=== PATIENT | male | born 1955 | race American Indian/Alaskan Native ===

== ENCOUNTER 2017-10-28 21:08 | Inpatient (IN) | payer MEDICARE ==
[2017-10-28] MEDS ORDERED: SUBLIMAZE IV ONE ×2 (21:12→21:35)
[2017-10-28] MEDS ORDERED: NACL 0.9% 500 ML 500 ML IV ONE (21:12)
[2017-10-28] MEDS ORDERED: SUBLIMAZE ONE (21:14)
--- NOTE | 2017-10-28 21:19 | Emergency Department Report ---
ED General Adult HPI - General Chief complaint: Abdominal Pain Stated complaint: ABDOMINAL PAIN Time Seen by Provider: 10/28/17 21:11 Source: patient, EMS (verbal report received from EMS.ems notes not available at time of chart dictation) Mode of arrival: Stretcher Limitations: Physical Limitation - History of Present Illness Initial comments: This is a 62-year-old gentleman who is not known to this provider previously who denies chronic medical conditions and specifically indicates no issues with renal insufficiency who presents to the ER with EMS as a possible aortic dissection. The patient apparently had laparotomy at some point in the past for ulcers. EMS brings the patient in for sharp anterior abdominal pain which radiates to the back, hypertension and the field and diaphoresis. Patient indicates no cocaine use, no trauma, and indicates he hasnt had pain like this before. On arrival to the ER, the patient was quite hypertensive with a blood pressure in the high 190s, was diaphoretic and looks very uncomfortable. He indicated no exacerbating or factors. Given this constellation of symptoms and clinical history, I am very concerned about impending aortic catastrophe. I strongly recommended an emergent CT angiogram of the chest abdomen pelvis to assess the patient's anatomy. Patient was informed about the potential risk of renal insufficiency secondary to contrast dye administration, but given his hypertension, diaphoresis and clinical history, it is my opinion that the patient requires emergent imaging to rule out a potentially life threatening diagnoses. In addition, this hospital does not have CT surgery available for consultation and surgical intervention, so it is in the patient's best interest to exclude a potentially lethal condition as expediently as possible and if an aortic catastrophe is indeed identified, he'll require transfer for definitive management. -: Sudden Location: abdomen Radiation: back Quality: other (tearing) Consistency: constant Improves with: none Worsens with: none Associated Symptoms: diaphoresis, malaise, weakness - Related Data Allergies Allergy/AdvReac Type Severity Reaction Status Date / Time No Known Drug Allergies Allergy Unknown Verified 10/28/17 22:36 ED Review of Systems ROS: Stated complaint: ABDOMINAL PAIN Other details as noted in HPI Comment: Unobtainable due to pts medical conditions ED Physical Exam - General General appearance: alert, in distress, other (patient is diaphoretic) - Head Head exam: Present: atraumatic, normocephalic - Eye Eye exam: Present: normal appearance, EOMI - ENT ENT exam: Present: normal exam, normal orophraynx, mucous membranes moist, normal external ear exam - Neck Neck exam: Present: normal inspection, full ROM - Respiratory Respiratory exam: Present: normal lung sounds bilaterally. Absent: respiratory distress - Cardiovascular Cardiovascular Exam: Present: regular rate, normal rhythm, normal heart sounds. Absent: bradycardia, tachycardia, irregular rhythm, systolic murmur, diastolic murmur, rubs, gallop - GI/Abdominal GI/Abdominal exam: Present: soft, tenderness. Absent: distended, guarding, rebound, rigid - Rectal Rectal exam: Present: deferred - Extremities Exam Extremities exam: Present: normal inspection, full ROM, other (2+ pulses noted in the bilateral upper, lower extremities. Compartments soft. No long bony tenderness. The pelvis is stable.). Absent: calf tenderness - Back Exam Back exam: Present: normal inspection, full ROM. Absent: tenderness, CVA tenderness (R), paraspinal tenderness, vertebral tenderness - Neurological Exam Neurological exam: Present: alert, oriented X3, CN II-XII intact, other ( Extraocular movements intact. Tongue midline. No facial droop. Facial sensation intact to light touch in the V1, V2, V3 distribution bilaterally. 5 and 5 strength in 4 extremities.. Sensation is intact to light touch in 4 extremities.). Absent: motor sensory deficit - Psychiatric Psychiatric exam: Present: anxious - Skin Skin exam: Present: warm, dry, intact, normal color. Absent: rash ED Course Vital Signs 10/28/17 10/28/17 10/28/17 21:11 21:45 22:21 Temperature Pulse Rate 93 H 79 96 H Respiratory Rate Blood Pressure 184/106 Blood Pressure 182/101 170/107 [Left] O2 Sat by Pulse 98 Oximetry 10/28/17 10/28/17 22:48 23:03 Temperature 98 F Pulse Rate 109 H 97 H Respiratory 16 Rate Blood Pressure Blood Pressure 150/85 168/93 [Left] O2 Sat by Pulse Oximetry - Reevaluation(s) Reevaluation #1: 10/28/17 22:33 The patient is reassessed. His blood pressure is improved. He is still having a fair amount of pain. His CT scan is negative for dissection or an imminent aortic catastrophe. I have reexamined the patient's abdomen and he is quite tender in the right upper quadrant. My bedside ultrasound demonstrates stones in the gallbladder. Stones in the gallbladder are also noted on the radiology report by the interpreting radiologist. In addition, the patient is found to have a possible stenosis at the ileocecal junction with air-fluid levels. Hydromorphone is added on for pain. Formal radiology right upper quadrant ultrasound has been requested. Given tachycardia, leukocytosis, abdominal pain , patient will be treated empirically for sepsis secondary to abdominal etiology. Gen. surgery on-call was paged, and I'm waiting call back. 10/28/17 22:53 Reevaluation #2: 10/28/17 22:38 hypertension and diaphoresis may be secondary to abdominal pain, either from small bowel obstruction versus ileus versus cholecystitis, patient does not require emergent decrease of blood pressure at this time and we will discontinue cardene drip. Reevaluation #3: 10/28/17 22:53 Case is discussed with general surgeon on-call, Dr. Nowak She agrees with plan to obtain right upper quadrant ultrasound. This patient is not having nausea or vomiting and has not describes constipation, she recommends no indication for emergent repeat CT scan with oral contrast. Indicates that small bowel series/follow-through may be obtained tomorrow. She indicates her group will follow the patient in consultation. Hospital team is paged to arrange admission. Reevaluation #4: 10/28/17 22:57 The hospitalist, Dr. Ortega, accepted the patient to the medical service. Reevaluation #5: 10/28/17 23:41 Ultrasound suggests stones without definitive evidence of cholecystitis. ED Medical Decision Making - Lab Data Result diagrams: 10/28/17 21:25 10/28/17 21:25 Vital Signs 10/28/17 21:11 Pulse Rate 93 H Blood Pressure 184/106 O2 Sat by Pulse 98 Oximetry Lab Results 10/28/17 10/28/17 10/28/17 Range/Units 21:25 21:25 21:25 WBC 19.5 H (4.5-11.0) K/mm3 RBC 4.61 (3.65-5.03) M/mm3 Hgb 14.3 (11.8-15.2) gm/dl Hct 44.4 (35.5-45.6) % MCV 96 H (84-94) fl MCH 31 (28-32) pg MCHC 32 (32-34) % RDW 15.2 (13.2-15.2) % Plt Count 324 (140-440) K/mm3 Lymph % (Auto) 17.2 (13.4-35.0) % [place] % (Auto) 8.2 H (0.0-7.3) % Eos % (Auto) 0.7 (0.0-4.3) % Baso % (Auto) 2.0 H (0.0-1.8) % Lymph # 3.4 (1.2-5.4) K/mm3 [place] # 1.6 H (0.0-0.8) K/mm3 Eos # 0.1 (0.0-0.4) K/mm3 Baso # 0.4 H (0.0-0.1) K/mm3 Seg Neutrophils % 71.9 H (40.0-70.0) % Seg Neutrophils # 14.0 H (1.8-7.7) K/mm3 PT 11.3 L (12.2-14.9) Sec. INR 0.78 L (0.87-1.13) Sodium 139 (137-145) mmol/L Potassium 3.9 (3.6-5.0) mmol/L Chloride 100.9 (98-107) mmol/L Carbon Dioxide 27 (22-30) mmol/L Anion Gap 15 mmol/L BUN 17 (9-20) mg/dL Creatinine 1.0 (0.8-1.5) mg/dL Estimated GFR > 60 ml/min BUN/Creatinine Ratio 17 % Glucose 111 H (75-100) mg/dL Lactic Acid (0.7-2.0) mmol/L Calcium 9.8 (8.4-10.2) mg/dL Magnesium 2.30 (1.7-2.3) mg/dL Total Bilirubin 0.20 (0.1-1.2) mg/dL AST 20 (5-40) units/L ALT 22 (7-56) units/L Alkaline Phosphatase 101 (35-129) units/L Troponin T < 0.010 (0.00-0.029) ng/mL Total Protein 7.9 (6.3-8.2) g/dL Albumin 4.2 (3.9-5) g/dL Albumin/Globulin Ratio 1.1 % 09/22/18 Range/Units 21:25 WBC (4.5-11.0) K/mm3 RBC (3.65-5.03) M/mm3 Hgb (11.8-15.2) gm/dl Hct (35.5-45.6) % MCV (84-94) fl MCH (28-32) pg MCHC (32-34) % RDW (13.2-15.2) % Plt Count (140-440) K/mm3 Lymph % (Auto) (13.4-35.0) % [place] % (Auto) (0.0-7.3) % Eos % (Auto) (0.0-4.3) % Baso % (Auto) (0.0-1.8) % Lymph # (1.2-5.4) K/mm3 [place] # (0.0-0.8) K/mm3 Eos # (0.0-0.4) K/mm3 Baso # (0.0-0.1) K/mm3 Seg Neutrophils % (40.0-70.0) % Seg Neutrophils # (1.8-7.7) K/mm3 PT (12.2-14.9) Sec. INR (0.87-1.13) Sodium (137-145) mmol/L Potassium (3.6-5.0) mmol/L Chloride (98-107) mmol/L Carbon Dioxide (22-30) mmol/L Anion Gap mmol/L BUN (9-20) mg/dL Creatinine (0.8-1.5) mg/dL Estimated GFR ml/min BUN/Creatinine Ratio % Glucose (75-100) mg/dL Lactic Acid 1.60 (0.7-2.0) mmol/L Calcium (8.4-10.2) mg/dL Magnesium (1.7-2.3) mg/dL Total Bilirubin (0.1-1.2) mg/dL AST (5-40) units/L ALT (7-56) units/L Alkaline Phosphatase (35-129) units/L Troponin T (0.00-0.029) ng/mL Total Protein (6.3-8.2) g/dL Albumin (3.9-5) g/dL Albumin/Globulin Ratio % - EKG Data EKG shows normal: sinus rhythm Rate: normal - EKG Data When compared to previous EKG there are: previous EKG unavailable 10/28/17 21:23 Sinus, 89 bpm, borderline rightward axis deviation, poor R-wave progression, abnormal EKG. There is no prior for comparison. This EKG is not a STEMI - Radiology Data Radiology results: report reviewed, image reviewed X-ray of the chest was negative for acute disease CT scan of the chest shows no evidence of aortic dissection. CT scan of the abdomen and pelvis shows no evidence of abdominal dissection. Stones noted in the gallbladder, and the gallbladder is distended. In addition, there may be a segment of stenosis at the ileocecal junction and air-fluid levels noted as well. - Medical Decision Making Differential diagnosis, including not limited to: Aortic dissection, AAA, acute coronary syndrome, hypertensive emergency Critical Care Time: Yes Critical care time in (mins) excluding proc time.: 60 Critical care attestation.: If time is entered above; I have spent that time in minutes in the direct care of this critically ill patient, excluding procedure time. ED Disposition Clinical Impression: SIRS (systemic inflammatory response syndrome), Abdominal pain Disposition: OP ADMIT IP TO THIS HOSP Is pt being admited?: Yes Condition: Critical Referrals: PRIMARY CARE, [Primary Care Provider] - 3-5 Days
[2017-10-28 21:32] LABS: Basophils # (Auto) 0.4 K/mm3 (0.0-0.1); Eosinophils # (Auto) 0.1 K/mm3 (0.0-0.4); Eosinophils % (Auto) 0.7 % (0.0-4.3); Hematocrit 44.4 % (35.5-45.6); Hemoglobin 14.3 gm/dl (11.8-15.2); Lymphocytes # (Auto) 3.4 K/mm3 (1.2-5.4); Lymphocytes % (Auto) 17.2 % (13.4-35.0); Mean Corpuscular HGB Conc 32 % (32-34); Mean Corpuscular Hemoglobin 31 pg (28-32); Mean Corpuscular Volume 96 fl (84-94); Monocytes # (Auto) 1.6 K/mm3 (0.0-0.8); Monocytes % (Auto) 8.2 % (0.0-7.3); Platelet Count 324 K/mm3 (140-440); Red Blood Count 4.61 M/mm3 (3.65-5.03); Red Cell Distribution Width 15.2 % (13.2-15.2)
[2017-10-28 21:41] LABS: INR 0.78 (0.87-1.13)
--- NOTE | 2017-10-28 21:50 | XRay Report ---
FINAL REPORT EXAM: XR CHEST 1V AP HISTORY: htn diaphoresis TECHNIQUE: Frontal portable view of the chest Comparison: None FINDINGS: There is no evidence of focal infiltrate, pneumothorax or pleural fluid collection. The entirety of the costophrenic angles are not included in the field of view. The cardiac silhouette is normal size. There is atherosclerotic vascular calcification of the thoracic aorta. The bony structures are unremarkable. IMPRESSION: 1. No evidence of an acute pulmonary process.
[2017-10-28 21:52] LABS: Alanine Aminotransferase 22 units/L (7-56); Albumin 4.2 g/dL (3.9-5); BUN/Creatinine Ratio 17; Blood Urea Nitrogen 17 mg/dL (9-20); Calcium 9.8 mg/dL (8.4-10.2); Hemolysis Index 8
[2017-10-28] MEDS ORDERED: CARDENE 50 MG in NACL 0.9% 250ML 230 ML IV SCH (22:00)
[2017-10-28] MEDS ORDERED: DILAUDID IV ONE (22:25)
--- NOTE | 2017-10-28 22:26 | Cat Scan Report ---
FINAL REPORT EXAM: CT ANGIO ABDOMEN PELVIS HISTORY: dissection protocol TECHNIQUE: CT angiogram of the abdomen and pelvis following IV administration of 100 cc of Omnipaque 350 axial helical imaging was performed through the abdomen and pelvis with maximum intensity projection images obtained. Comparison: CT angiogram chest also performed today FINDINGS: The lung bases are without infiltrate, pneumothorax or pleural fluid collection. There appears to be fatty infiltration of the liver. The spleen is diminutive in size. The pancreas an adrenal glands are unremarkable. The gallbladder is moderately distended and contains numerous gallstones. There are hypodensities in the kidneys bilaterally. Some fit CT criteria for cysts. Others are too small to characterize. There is no evidence of hydronephrosis or urinary tract calculi. There is mild distention of segments of small bowel in the abdomen and pelvis with air-fluid levels. There is no evidence of pneumoperitoneum or free fluid. There is colonic diverticulosis without radiographic evidence of diverticulitis. The appendix is normal in appearance. There is a "stool-like" appearance of the contents of the distal ileum. This is of unclear etiology but raises the possibility of a segment of stenosis in the region of the ileocecal junction. There is a [id number] amount of stool in the ascending and transverse colon. The abdominal aorta is normal caliber. There is atherosclerotic vascular calcification and plaque formation in the large and medium caliber arteries. There is normal enhancement of the branches of the abdominal aorta without evidence of significant stenosis or occlusion. There is the appearance of irregular stenosis of the internal iliac arteries bilaterally secondary to atherosclerotic plaque formation. There is the appearance of irregular stenosis of the common femoral arteries bilaterally. The bony structures are notable for spondylitic change of the lumbar spine with a large left foraminal disc protrusion at the L4-L5 level and grade 1 anterolisthesis of L4 on L5. There appears to be marked canal stenosis at this level. There is the appearance of a large right central/paracentral disc protrusion/herniation at L5-S1. IMPRESSION: 1. Atherosclerotic vascular calcification and plaque formation in the large and medium caliber arteries without evidence of occlusion and without evidence of significant stenosis of the major branches of the abdominal aorta. 2. Irregular stenoses of the internal iliac arteries bilaterally and common femoral arteries bilaterally. 3. "Stool-like" appearance of the contents of the distal ileum with mild distention with air-fluid levels in more proximal segments of the small bowel. This may be indicative of a stenosis at the ileocecal junction. CT abdomen and pelvis with GI contrast opacification of the small bowel and colon may be helpful for further evaluation. 4. Evidence of fatty infiltration/steatosis of the liver. 5. Gallstones within the moderately distended gallbladder. 6. Renal cysts. 7. Colonic diverticulosis. 8. Spondylitic change lumbar spine with grade 1 anterolisthesis L4 on L5 and the appearance of, a large left foraminal disc protrusion L4-L5 and large right central/paracentral disc protrusion L5-S1.
[2017-10-28] MEDS ORDERED: NACL 0.9% 1000 ML IV ONE (22:28)
--- NOTE | 2017-10-28 22:31 | Cat Scan Report ---
FINAL REPORT EXAM: CT ANGIO CHEST HISTORY: dissection protocol TECHNIQUE: Following IV administration of 100 cc of Omnipaque 350 axial helical imaging was performed through the chest with maximum intensity projection images obtained. Comparison: CT angiogram abdomen and pelvis also performed today FINDINGS: There is no evidence of infiltrate, pneumothorax or pleural fluid collection. The trachea and bronchi are patent. The heart appears to be normal size. The thoracic aorta is normal caliber with atherosclerotic vascular calcification. There is no evidence of dissection. There is no evidence of intrathoracic adenopathy. The bony structures are notable for a compression fracture of the L1 vertebral body of indeterminate age. Loss of height is less than 50 percent. The visualized portion the upper abdomen is notable for evidence of gallstones in the moderately distended gallbladder and postsurgical change in the lesser sac. IMPRESSION: 1. Atherosclerotic vascular calcification of the thoracic aorta without evidence of aneurysm or dissection. 2. No evidence of an acute intrathoracic process. 3. Compression fracture L1 vertebral body of indeterminate age. Loss of height is less than 50 percent. 4. Gallstones in the moderately distended gallbladder.
[2017-10-28] MEDS ORDERED: ZOSYN/NS 4.5GM/100ML 4.5 GM/100 ML VIAL IV ONE (23:00)
--- NOTE | 2017-10-28 23:39 | Ultrasound Report ---
FINAL REPORT EXAM: US ABDOMEN LIMITED HISTORY: cholecystitis ruq abd pain TECHNIQUE: Grayscale and color-flow imaging of the right upper quadrant was performed. Comparison: CT angiogram abdomen and pelvis also performed today FINDINGS: Pancreas: The posterior body and tail of the pancreas are not well visualized due to artifact. The visualized portion the pancreas is unremarkable. Upper abdominal aorta: Normal caliber (2 centimeters). Right kidney: Measures 11.2 centimeters in the maximal craniocaudal dimension and is unremarkable in appearance. Liver: Demonstrates homogeneous echogenicity. There is no demonstration of a focal mass. There is increased echogenicity of the liver suggestive of fatty infiltration/steatosis. Gallbladder: Moderately distended and contains numerous shadowing gallstones. The gallbladder wall is normal thickness (2.5 millimeters). There is no demonstration of pericholecystic fluid. Common bile duct: Normal caliber for the patient's age (6.6 millimeters). No free fluid is demonstrated in the right upper quadrant. IMPRESSION: 1. Gallstones within the gallbladder. No definite ultrasound evidence of acute cholecystitis. 2. Posterior body and tail of the pancreas not well visualized due to artifact. 3. Evidence of fatty infiltration/steatosis of the liver.
--- NOTE | 2017-10-29 00:13 | History and Physical Report ---
History of Present Illness Date of examination: 10/28/17 Date of admission: 10/28/17 Chief complaint: Generalized abdominal pain History of present illness: Patient is a 62-year-old -[place] male with history of peptic ulcer disease who presented to the ED on account of a few hours history of generalized abdominal pain. He described it as sudden in onset, sharp in character, rated 10 over 10, nonradiating and constant in duration. No known aggravating or relieving factors. He has associated chills without fever. He denies nausea, vomiting, constipation, diarrhea, dysuria or frequency. No chest pain, cough, palpitation, leg swelling, headaches, dizziness, syncope or loss of consciousness. Past History Past Medical History: arthritis, other (peptic ulcer disease) Past Surgical History: Other (stomach surgery for peptic ulcer disease) Social history: smoking (patient has 20 year history of cigarette smoking. He currently smokes few sticks of cigarettes per day. He admits to occasional alcohol use but denies illicit drug use), other Family history: other (both parents had heart disease and his mother had brain aneurysm in her 70's) Medications and Allergies Allergies Allergy/AdvReac Type Severity Reaction Status Date / Time No Known Drug Allergies Allergy Unknown Verified 10/28/17 22:36 Home Medications Medication Instructions Recorded Confirmed Last Taken Type Celecoxib 10/29/17 Unknown History predniSONE [Deltasone] 10/29/17 Unknown History Active Meds: Active Medications Enoxaparin Sodium (Lovenox) 40 mg SUB-Q QDAY LEANDRO Piperacillin Sod/Tazobactam Sod (Zosyn/Ns 4.5gm/100ml) 4.5 gm in 100 mls @ 200 mls/hr IV Q8HR LEANDRO; Protocol Review of Systems All systems: negative (except as documented in the HPI, all other systems were reviewed and negative) Exam - Constitutional Vitals: Temp Pulse Resp BP Pulse Ox 98 F 97 H 16 168/93 98 10/28/17 22:48 10/28/17 23:03 10/28/17 22:48 10/28/17 23:03 10/28/17 21:11 General appearance: Present: no acute distress, well-nourished - EENT Eyes: Present: PERRL, EOM intact ENT: hearing intact, clear oral mucosa - Neck Neck: Present: supple, normal ROM - Respiratory Respiratory effort: normal Respiratory: bilateral: CTA - Cardiovascular Rhythm: other (tachycardia with regular rhythm) Heart Sounds: Present: S1 & S2. Absent: rub, click - Extremities Extremities: pulses symmetrical, No edema Peripheral Pulses: within normal limits - Abdominal General gastrointestinal: Present: soft, tender (generalized with positive Dunlap's sign), non-distended, normal bowel sounds - Integumentary Integumentary: Present: clear, warm, dry - Musculoskeletal Musculoskeletal: gait normal, strength equal bilaterally - Psychiatric Psychiatric: appropriate mood/affect, intact judgment & insight - Neurologic Neurologic: CNII-XII intact, moves all extremities Results - Labs CBC & Chem 7: 10/28/17 21:25 10/28/17 21:25 Labs: Laboratory Last Values WBC 19.5 K/mm3 (4.5-11.0) H 10/28/17 21: RBC 4.61 M/mm3 (3.65-5.03) 10/28/17 21: Hgb 14.3 gm/dl (11.8-15.2) 10/28/17 21: Hct 44.4 % (35.5-45.6) 10/28/17 21:25 MCV 96 fl (84-94) H 10/28/17 21:25 MCH 31 pg (28-32) 10/28/17 21: MCHC 32 % (32-34) 10/28/17 21:25 RDW 15.2 % (13.2-15.2) 10/28/17 21: Plt Count 324 K/mm3 (140-440) 10/28/17 21:25 Lymph % (Auto) 17.2 % (13.4-35.0) 10/28/17 21:25 [place] % (Auto) 8.2 % (0.0-7.3) H 10/28/17 21:25 Eos % (Auto) 0.7 % (0.0-4.3) 10/28/17 21: Baso % (Auto) 2.0 % (0.0-1.8) H 10/28/17 21:25 Lymph # 3.4 K/mm3 (1.2-5.4) 10/28/17 21: [place] # 1.6 K/mm3 (0.0-0.8) H 10/28/17 21:25 Eos # 0.1 K/mm3 (0.0-0.4) 10/28/17 21:25 Baso # 0.4 K/mm3 (0.0-0.1) H 10/28/17 21:25 Seg Neutrophils % 71.9 % (40.0-70.0) H 10/28/17 21:25 Seg Neutrophils # 14.0 K/mm3 (1.8-7.7) H 10/28/17 21:25 PT 11.3 Sec. (12.2-14.9) L 10/28/17 21:25 INR 0.78 (0.87-1.13) L 10/28/17 21:25 Sodium 139 mmol/L (137-145) 10/28/17 21:25 Potassium 3.9 mmol/L (3.6-5.0) 10/28/17 21:25 Chloride 100.9 mmol/L (98-107) 10/28/17 21:25 Carbon Dioxide 27 mmol/L (22-30) 10/28/17 21:25 Anion Gap 15 mmol/L 10/28/17 21:25 BUN 17 mg/dL (9-20) 10/28/17 21:25 Creatinine 1.0 mg/dL (0.8-1.5) 10/28/17 21:25 Estimated GFR > 60 ml/min 10/28/17 21:25 BUN/Creatinine Ratio 17 % 10/28/17 21:25 Glucose 111 mg/dL (75-100) H 10/28/17 21:25 Lactic Acid 1.60 mmol/L (0.7-2.0) 10/28/17 21:25 Calcium 9.8 mg/dL (8.4-10.2) 10/28/17 21:25 Magnesium 2.30 mg/dL (1.7-2.3) 10/28/17 21:25 Total Bilirubin 0.20 mg/dL (0.1-1.2) 10/28/17 21:25 AST 20 units/L (5-40) 10/28/17 21:25 ALT 22 units/L (7-56) 10/28/17 21:25 Alkaline Phosphatase 101 units/L (35-129) 10/28/17 21:25 Troponin T < 0.010 ng/mL (0.00-0.029) 10/28/17 21:25 Total Protein 7.9 g/dL (6.3-8.2) 10/28/17 21:25 Albumin 4.2 g/dL (3.9-5) 10/28/17 21:25 Albumin/Globulin Ratio 1.1 % 10/28/17 21:25 Blood Type O POSITIVE 10/28/17 21:25 Antibody Screen Negative 10/28/17 21:25 Assessment and Plan Assessment and plan: Sepsis likely secondary to acute cholecystitis -Sepsis protocol -On IV antibiotic with Zosyn and when necessary narcotics for pain control -General surgeon was consulted in the ED 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 Elevated blood pressure without prior history of hypertension -Probably secondary to severe pain -Patient will be placed on when necessary hydralazine History of peptic ulcer disease -On IV Protonix Prophylaxis -DVT prophylaxis with SCD due to high risk for bleed Time spent: 38 minutes Disposition: Discharge will depend on clinical course
[2017-10-29] MEDS ORDERED: TYLENOL PO PRN (00:33)
[2017-10-29] MEDS ORDERED: PERCOCET 5/325 PO PRN (00:33)
[2017-10-29] MEDS ORDERED: SODIUM CHLORIDE FLUSH SYRINGE 10 ML IV PRN (00:33)
[2017-10-29] MEDS ORDERED: ZOFRAN IV PRN (00:33)
[2017-10-29] MEDS ORDERED: APRESOLINE IV PRN (00:39)
[2017-10-29 00:47] LABS: Bilirubin,Urine NEG (Negative); Blood,Urine NEG (Negative); Color,Urine Colorless (Yellow); Protein,Urine <15 mg/dL mg/dL (Negative); Urobilinogen,Urine < 2.0 mg/dL (<2.0)
[2017-10-29] MEDS: PROTONIX IV SCH ×3 (02:52→21:05)
[2017-10-29] MEDS ORDERED: PROTONIX IV ONE (02:54)
[2017-10-29] MEDS: DILAUDID IV PRN ×5 (03:15→23:11)
[2017-10-29] MEDS: NACL 0.9% 1000 ML 1,000 ML IV SCH ×2 (06:51→21:04)
[2017-10-29] MEDS: ZOSYN/NS 4.5GM/100ML 4.5 GM/100 ML VIAL IV SCH ×3 (06:52→21:04)
[2017-10-29] MEDS ORDERED: LOVENOX SUB-Q SCH (10:00)
[2017-10-29] MEDS: SODIUM CHLORIDE FLUSH SYRINGE 10 ML IV SCH ×2 (10:16→21:05)
--- NOTE | 2017-10-29 10:30 | Progress Note ---
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 Elevated blood pressure without prior history of hypertension -Probably secondary to severe pain -Cont. when necessary hydralazine History of peptic ulcer disease -On IV Protonix Prophylaxis -DVT prophylaxis with SCD due to high risk for bleed History Interval history: No new issues overnight. Patient continues to complain of abdominal pain. Hospitalist Physical - Constitutional Vitals: Temp Pulse Resp BP Pulse Ox 98.2 F 85 20 157/97 97 10/29/17 05:24 10/29/17 05:24 10/29/17 05:24 10/29/17 05:24 10/29/17 05:24 General appearance: Present: no acute distress, well-nourished - EENT Eyes: Present: PERRL, EOM intact ENT: hearing intact, clear oral mucosa, dentition normal - Neck Neck: Present: supple, normal ROM - Respiratory Respiratory effort: normal Respiratory: bilateral: CTA - Cardiovascular Rhythm: regular Heart Sounds: Present: S1 & S2. Absent: gallop, rub - Extremities Extremities: no ischemia, No edema, Full ROM - Abdominal General gastrointestinal: soft, tender, non-distended, normal bowel sounds Localized gastrointestinal: tender: diffuse (mild) - Integumentary Integumentary: Present: clear, warm, dry - Neurologic Neurologic: CNII-XII intact, moves all extremities Results - Labs CBC & Chem 7: 10/28/17 21:25 10/28/17 21:25 Labs: Laboratory Last Values WBC 19.5 K/mm3 (4.5-11.0) H 10/28/17 21:25 RBC 4.61 M/mm3 (3.65-5.03) 10/28/17 21:25 Hgb 14.3 gm/dl (11.8-15.2) 10/28/17 21:25 Hct 44.4 % (35.5-45.6) 10/28/17 21:25 MCV 96 fl (84-94) H 10/28/17 21:25 MCH 31 pg (28-32) 10/28/17 21:25 MCHC 32 % (32-34) 10/28/17 21:25 RDW 15.2 % (13.2-15.2) 10/28/17 21:25 Plt Count 324 K/mm3 (140-440) 10/28/17 21:25 Lymph % (Auto) 17.2 % (13.4-35.0) 10/28/17 21: [place] % (Auto) 8.2 % (0.0-7.3) H 10/28/17 21:25 Eos % (Auto) 0.7 % (0.0-4.3) 10/28/17 21: Baso % (Auto) 2.0 % (0.0-1.8) H 10/28/17: Lymph # 3.4 K/mm3 (1.2-5.4) 10/28/17: [place] # 1.6 K/mm3 (0.0-0.8) H 10/28/17: Eos # 0.1 K/mm3 (0.0-0.4) 10/28/17: Baso # 0.4 K/mm3 (0.0-0.1) H 10/28/17 21:25 Seg Neutrophils % 71.9 % (40.0-70.0) H 10/28/17: Seg Neutrophils # 14.0 K/mm3 (1.8-7.7) H 10/28/17 21:25 PT 11.3 Sec. (12.2-14.9) L 10/28/17 21:25 INR 0.78 (0.87-1.13) L 10/28/17 21:25 Sodium 139 mmol/L (137-145) 10/28/17 21:25 Potassium 3.9 mmol/L (3.6-5.0) 10/28/17: Chloride 100.9 mmol/L (98-107) 10/28/17 21:25 Carbon Dioxide 27 mmol/L (22-30) 10/28/17 21:25 Anion Gap 15 mmol/L 10/28/17 21:25 BUN 17 mg/dL (9-20) 10/28/17 21:25 Creatinine 1.0 mg/dL (0.8-1.5) 10/28/17 21:25 Estimated GFR > 60 ml/min 10/28/17 21:25 BUN/Creatinine Ratio 17 % 10/28/17 21:25 Glucose 111 mg/dL (75-100) H 10/28/17 21:25 Lactic Acid 1.60 mmol/L (0.7-2.0) 10/28/17 21:25 Calcium 9.8 mg/dL (8.4-10.2) 10/28/17 21:25 Magnesium 2.30 mg/dL (1.7-2.3) 10/28/17 21:25 Total Bilirubin 0.20 mg/dL (0.1-1.2) 10/28/17 21:25 AST 20 units/L (5-40) 10/28/17 21:25 ALT 22 units/L (7-56) 10/28/17 21:25 Alkaline Phosphatase 101 units/L (35-129) 10/28/17 21:25 Troponin T < 0.010 ng/mL (0.00-0.029) 10/28/17 21:25 Total Protein 7.9 g/dL (6.3-8.2) 10/28/17 21:25 Albumin 4.2 g/dL (3.9-5) 10/28/17 21:25 Albumin/Globulin Ratio 1.1 % 10/28/17 21:25 Urine Color Colorless (Yellow) 10/28/17 00:41 Urine Turbidity Clear (Clear) 10/28/17 00:41 Urine pH 8.0 (5.0-7.0) H 10/28/17 00:41 Ur Specific [place] 1.014 (1.003-1.030) 10/28/17 00:41 Urine Protein <15 mg/dl mg/dL (Negative) 10/28/17 00:41 Urine Glucose (UA) Neg mg/dL (Negative) 10/28/17 00:41 Urine Ketones Neg mg/dL (Negative) 10/28/17 00:41 Urine Blood Neg (Negative) 10/28/17 00:41 Urine Nitrite Neg (Negative) 10/28/17 00:41 Urine Bilirubin Neg (Negative) 10/28/17 00:41 Urine Urobilinogen < 2.0 mg/dL (<2.0) 10/28/17 00:41 Ur Leukocyte Esterase Neg (Negative) 10/28/17 00:41 Urine WBC (Auto) 2.0 /HPF (0.0-6.0) 10/28/17 00:41 Urine RBC (Auto) 1.0 /HPF (0.0-6.0) 10/28/17 00:41 Blood Type O POSITIVE 10/28/17 21:25 Antibody Screen Negative 10/28/17 21:25
--- NOTE | 2017-10-29 11:33 | Consultation ---
History of Present Illness Consult date: 10/29/17 Chief complaint: ABDOMINAL PAIN - History of present illness History of present illness: 62 yo M with hx of rheumatoid arthritis, UGI 2/2 GI ulcer presents to ER with c/ o severe abdominal pain localized to the R abdomen for 5-6 hours. He states the pain is sharp and constant. He has never had pain like this before. He tried to take antacids, drink milk and the pain did not subside. He ate fried chicken and danish fries for lunch and the pain started shortly afterwards. He had one small BM yesterday but is not passing flatus. He denies f/c but was diaphoretic in the ER due to the pain. No CP, SOB, n/v. Past History Past Medical History: arthritis (rheumatoid), other (peptic ulcer disease) Past Surgical History: bowel surgery (for obstruction), Other (stomach surgery for peptic ulcer disease) Social history: smoking (patient has 20 year history of cigarette smoking. He currently smokes few sticks of cigarettes per day. He admits to occasional alcohol use but denies illicit drug use), other Family history: cancer (breast ca in mother), diabetes (in father), other (both parents had heart disease and his mother had brain aneurysm in her 70's) Medications and Allergies Allergies Allergy/AdvReac Type Severity Reaction Status Date / Time No Known Drug Allergies Allergy Unknown Verified 10/28/17 22:36 Home Medications Medication Instructions Recorded Confirmed Last Taken Type Celecoxib BID 10/29/17 Unknown History predniSONE [Deltasone] BID 10/29/17 Unknown History Active Meds: Active Medications Acetaminophen (Tylenol) 650 mg PO Q4H PRN PRN Reason: Pain MILD(1-3)/Fever >100.5/HILL Hydralazine HCl (Apresoline) 10 mg IV Q6H PRN PRN Reason: Blood Pressure Hydromorphone HCl (Dilaudid) 1 mg IV Q4H PRN PRN Reason: Pain , Severe (7-10) Last Admin: 10/29/17 03:15 Dose: 1 mg Piperacillin Sod/Tazobactam Sod (Zosyn/Ns 4.5gm/100ml) 4.5 gm in 100 mls @ 200 mls/hr IV Q8HR LEANDRO; Protocol Last Admin: 10/29/17 06:52 Dose: 200 mls/hr Sodium Chloride (Nacl 0.9% 1000 Ml) 1,000 mls @ 100 mls/hr IV DIRECT [facility] Last Admin: 10/29/17 06:51 Dose: 100 mls/hr Ondansetron HCl (Zofran) 4 mg IV Q8H PRN PRN Reason: Nausea And Vomiting Oxycodone/Acetaminophen (Percocet 5/325) 1 tab PO Q4H PRN PRN Reason: Pain, Moderate (4-6) Pantoprazole Sodium (Protonix) 40 mg IV BID [facility] Last Admin: 10/29/17 10:14 Dose: 40 mg Sodium Chloride (Sodium Chloride Flush Syringe 10 Ml) 10 ml IV BID [facility] Last Admin: 10/29/17 10:16 Dose: 10 ml Sodium Chloride (Sodium Chloride Flush Syringe 10 Ml) 10 ml IV PRN PRN PRN Reason: LINE FLUSH Review of Systems All systems: negative (10 pt ROS performed and negative except for that listed in HPI) Exam Vital Signs Pulse BP Pulse Ox 93 H 184/106 98 10/28/17 21:11 10/28/17 21:11 10/28/17 21:11 Narrative exam: Gen: AAOx3. NAD ENT: no scleral icterus or conjunctival pallor CV: S1, S2+ Resp: CTAB, no w/r/r Abd: soft, ND, hypoactive bowel sounds. + RLQ and RUQ TTP. no r/r/g Ext; no c/c/e Results - Labs 10/28/17 21:25 10/28/17 21:25 Abnormal lab results 10/28/17 10/28/17 10/28/17 Range/Units 00:41 21:25 21:25 WBC 19.5 H (4.5-11.0) K/mm3 MCV 96 H (84-94) fl [place] % (Auto) 8.2 H (0.0-7.3) % Baso % (Auto) 2.0 H (0.0-1.8) % [place] # 1.6 H (0.0-0.8) K/mm3 Baso # 0.4 H (0.0-0.1) K/mm3 Seg Neutrophils % 71.9 H (40.0-70.0) % Seg Neutrophils # 14.0 H (1.8-7.7) K/mm3 PT 11.3 L (12.2-14.9) Sec. INR 0.78 L (0.87-1.13) Glucose (75-100) mg/dL Urine pH 8.0 H (5.0-7.0) 10/28/17 Range/Units 21:25 WBC (4.5-11.0) K/mm3 MCV (84-94) fl [place] % (Auto) (0.0-7.3) % Baso % (Auto) (0.0-1.8) % [place] # (0.0-0.8) K/mm3 Baso # (0.0-0.1) K/mm3 Seg Neutrophils % (40.0-70.0) % Seg Neutrophils # (1.8-7.7) K/mm3 PT (12.2-14.9) Sec. INR (0.87-1.13) Glucose 111 H (75-100) mg/dL Urine pH (5.0-7.0) Diabetes panel 10/28/17 Range/Units 21:25 Sodium 139 (137-145) mmol/L Potassium 3.9 (3.6-5.0) mmol/L Chloride 100.9 (98-107) mmol/L Carbon Dioxide 27 (22-30) mmol/L BUN 17 (9-20) mg/dL Creatinine 1.0 (0.8-1.5) mg/dL Glucose 111 H (75-100) mg/dL Calcium 9.8 (8.4-10.2) mg/dL AST 20 (5-40) units/L ALT 22 (7-56) units/L Alkaline Phosphatase 101 (35-129) units/L Total Protein 7.9 (6.3-8.2) g/dL Albumin 4.2 (3.9-5) g/dL Calcium panel 10/28/17 Range/Units 21:25 Calcium 9.8 (8.4-10.2) mg/dL Albumin 4.2 (3.9-5) g/dL Pituitary panel 10/28/17 Range/Units 21:25 Sodium 139 (137-145) mmol/L Potassium 3.9 (3.6-5.0) mmol/L Chloride 100.9 (98-107) mmol/L Carbon Dioxide 27 (22-30) mmol/L BUN 17 (9-20) mg/dL Creatinine 1.0 (0.8-1.5) mg/dL Glucose 111 H (75-100) mg/dL Calcium 9.8 (8.4-10.2) mg/dL Adrenal panel 10/28/17 Range/Units 21:25 Sodium 139 (137-145) mmol/L Potassium 3.9 (3.6-5.0) mmol/L Chloride 100.9 (98-107) mmol/L Carbon Dioxide 27 (22-30) mmol/L BUN 17 (9-20) mg/dL Creatinine 1.0 (0.8-1.5) mg/dL Glucose 111 H (75-100) mg/dL Calcium 9.8 (8.4-10.2) mg/dL Total Bilirubin 0.20 (0.1-1.2) mg/dL AST 20 (5-40) units/L ALT 22 (7-56) units/L Alkaline Phosphatase 101 (35-129) units/L Total Protein 7.9 (6.3-8.2) g/dL Albumin 4.2 (3.9-5) g/dL - Imaging CT scan - abdomen: report reviewed, image reviewed CT scan - chest: report reviewed, image reviewed CT scan - pelvis: report reviewed, image reviewed US - abdomen: report reviewed, image reviewed Assessment and Plan 62 yo M with RUQ and RLQ abdominal pain, constipation/ileus, cholelithiasis Plan: 1. continue NPO 2. IVF 3. prn pain control 4. CT scan reviewed - possible narrowing/stricture of ileum with fecalization of small bowel loops. gallstones. Will start bowel regimen and obtain small bowel follow through to r/o stricture 5. I suspect patient's symptoms are secondary to gallstones. U/S does not show evidence of cholecystitis. If SBFT is negative, will proceed to laparoscopic choelcystectomy. D/W all risks, benefits, and alternatives to surgery with patient 6. IV abx - empiric 7. repeat labs in am, trend WBC 8. add PPI Thank you for this consultation, please call with questions or concerns.
[2017-10-29] MEDS: MIRALAX 3350 PO SCH (12:00)
[2017-10-29] MEDS ORDERED: PROVENTIL IH ONE (20:57)
[2017-10-29] MEDS: COLACE PO SCH (21:05)
[2017-10-30] MEDS: ZOSYN/NS 4.5GM/100ML 4.5 GM/100 ML VIAL IV SCH ×3 (05:32→23:44)
[2017-10-30] MEDS: NACL 0.9% 1000 ML 1,000 ML IV SCH ×3 (05:32→23:36)
[2017-10-30] MEDS: DILAUDID IV PRN ×7 (05:36→23:35)
[2017-10-30 06:39] LABS: Hematocrit 44.9 % (35.5-45.6); Hemoglobin 14.4 gm/dl (11.8-15.2); Mean Corpuscular HGB Conc 32 % (32-34); Mean Corpuscular Hemoglobin 31 pg (28-32); Mean Corpuscular Volume 96 fl (84-94); Platelet Count 289 K/mm3 (140-440); Red Blood Count 4.69 M/mm3 (3.65-5.03); Red Cell Distribution Width 15.4 % (13.2-15.2)
[2017-10-30 06:58] LABS: BUN/Creatinine Ratio 11; Blood Urea Nitrogen 10 mg/dL (9-20); Calcium 8.6 mg/dL (8.4-10.2); Hemolysis Index 8
[2017-10-30 08:13] LABS: Basophils % (Manual) 0 % (0.0-1.8); Myelocytes # (Manual) 0.1 K/mm3; Total Cells Counted 100
[2017-10-30 08:14] LABS: Poikilocytosis Few
--- NOTE | 2017-10-30 09:31 | Progress Note ---
Assessment and Plan Assessment and plan: Sepsis -Sepsis protocol -On IV antibiotic with Zosyn and when necessary narcotics for pain control Cholelithiasis. U/S does not show evidence of cholecystitis. If SBFT is negative, will proceed to laparoscopic choelcystectomy. 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 when necessary hydralazine History of peptic ulcer disease -On IV Protonix Prophylaxis -DVT prophylaxis with SCD due to high risk for bleed History Interval history: No new issues overnight. Patient continues to complain of abdominal pain. Hospitalist Physical - Constitutional Vitals: Temp Pulse Resp BP Pulse Ox 99.1 F 100 H 18 104/73 98 10/30/17 05:59 10/30/17 05:59 10/30/17 05:59 10/30/17 05:59 10/30/17 05:59 General appearance: Present: no acute distress, well-nourished - EENT Eyes: Present: PERRL, EOM intact ENT: hearing intact, clear oral mucosa, dentition normal - Neck Neck: Present: supple, normal ROM - Respiratory Respiratory effort: normal Respiratory: bilateral: CTA - Cardiovascular Rhythm: regular Heart Sounds: Present: S1 & S2. Absent: gallop, rub - Extremities Extremities: no ischemia, No edema, Full ROM - Abdominal General gastrointestinal: soft, non-tender, non-distended, normal bowel sounds - Integumentary Integumentary: Present: clear, warm, dry - Neurologic Neurologic: CNII-XII intact, moves all extremities Results - Labs CBC & Chem 7: 10/30/17 05:04 10/30/17 05:04 Labs: Laboratory Last Values WBC 12.6 K/mm3 (4.5-11.0) H 10/30/17 05:04 RBC 4.69 M/mm3 (3.65-5.03) 10/30/17 05:04 Hgb 14.4 gm/dl (11.8-15.2) 10/30/17 05:04 Hct 44.9 % (35.5-45.6) 10/30/17 05:04 MCV 96 fl (84-94) H 10/30/17 05:04 MCH 31 pg (28-32) 10/30/17 05:04 MCHC 32 % (32-34) 10/30/17 05:04 RDW 15.4 % (13.2-15.2) H 10/30/17 05:04 Plt Count 289 K/mm3 (140-440) 10/30/17 05:04 Lymph % (Auto) 17.2 % (13.4-35.0) 10/28/17 21:25 [place] % (Auto) 8.2 % (0.0-7.3) H 10/28/17 21:25 Eos % (Auto) 0.7 % (0.0-4.3) 10/28/17 21:25 Baso % (Auto) 2.0 % (0.0-1.8) H 10/28/17 21:25 Lymph # 3.4 K/mm3 (1.2-5.4) 10/28/17 21:25 [place] # 1.6 K/mm3 (0.0-0.8) H 10/28/17 21:25 Eos # 0.1 K/mm3 (0.0-0.4) 10/28/17 21:25 Baso # 0.4 K/mm3 (0.0-0.1) H 10/28/17 21:25 Add Manual Diff Complete 10/30/17 05:04 Total Counted 100 10/30/17 05:04 Seg Neutrophils % 71.9 % (40.0-70.0) H 10/28/17 21:25 Seg Neuts % (Manual) 58.0 % (40.0-70.0) 10/30/17 05:04 Band Neutrophils % 0 % 10/30/17 05:04 Lymphocytes % (Manual) 24.0 % (13.4-35.0) 10/30/17 05:04 Reactive Lymphs % (Man) 0 % 10/30/17 05:04 Monocytes % (Manual) 15.0 % (0.0-7.3) H 10/30/17 05:04 Eosinophils % (Manual) 2.0 % (0.0-4.3) 10/30/17 05:04 Basophils % (Manual) 0 % (0.0-1.8) 10/30/17 05:04 Metamyelocytes % 0 % 10/30/17 05:04 Myelocytes % 1.0 % 10/30/17 05:04 Promyelocytes % 0 % 10/30/17 05:04 Blast Cells % 0 % 10/30/17 05:04 Nucleated RBC % Not Reportable 10/30/17 05:04 Seg Neutrophils # 14.0 K/mm3 (1.8-7.7) H 10/28/17 21:25 Seg Neutrophils # Man 7.3 K/mm3 (1.8-7.7) 10/30/17 05:04 Band Neutrophils # 0.0 K/mm3 10/30/17 05:04 Lymphocytes # (Manual) 3.0 K/mm3 (1.2-5.4) 10/30/17 05:04 Abs React Lymphs (Man) 0.0 K/mm3 10/30/17 05:04 Monocytes # (Manual) 1.9 K/mm3 (0.0-0.8) H 10/30/17 05:04 Eosinophils # (Manual) 0.3 K/mm3 (0.0-0.4) 10/30/17 05:04 Basophils # (Manual) 0.0 K/mm3 (0.0-0.1) 10/30/17 05:04 Metamyelocytes # 0.0 K/mm3 10/30/17 05:04 Myelocytes # 0.1 K/mm3 10/30/17 05:04 Promyelocytes # 0.0 K/mm3 10/30/17 05:04 Blast Cells # 0.0 K/mm3 10/30/17 05:04 WBC Morphology Not Reportable 10/30/17 05:04 Hypersegmented Neuts Not Reportable 10/30/17 05:04 Hyposegmented Neuts Not Reportable 10/30/17 05:04 Hypogranular Neuts Not Reportable 10/30/17 05:04 Smudge Cells Not Reportable 10/30/17 05:04 Toxic Granulation Not Reportable 10/30/17 05:04 Toxic Vacuolation Not Reportable 10/30/17 05:04 Dohle Bodies Not Reportable 10/30/17 05:04 Pelger-Huet Anomaly Not Reportable 10/30/17 05:04 Alice Rods Not Reportable 10/30/17 05:04 Platelet Estimate Appears normal 10/30/17 05:04 Clumped Platelets Not Reportable 10/30/17 05:04 Plt Clumps, EDTA Not Reportable 10/30/17 05:04 Large Platelets Not Reportable 10/30/17 05:04 Giant Platelets Not Reportable 10/30/17 05:04 Platelet Satelliting Not Reportable 10/30/17 05:04 Plt Morphology Comment Not Reportable 10/30/17 05:04 RBC Morphology Not Reportable 10/30/17 05:04 Dimorphic RBCs Not Reportable 10/30/17 05:04 Polychromasia Not Reportable 10/30/17 05:04 Hypochromasia Not Reportable 10/30/17 05:04 Poikilocytosis Few 10/30/17 05:04 Anisocytosis Not Reportable 10/30/17 05:04 Microcytosis Not Reportable 10/30/17 05:04 Macrocytosis Not Reportable 10/30/17 05:04 Spherocytes Not Reportable 10/30/17 05:04 Pappenheimer Bodies Not Reportable 10/30/17 05:04 Sickle Cells Not Reportable 10/30/17 05:04 Target Cells Not Reportable 10/30/17 05:04 Tear Drop Cells Not Reportable 10/30/17 05:04 Ovalocytes Not Reportable 10/30/17 05:04 Helmet Cells Not Reportable 10/30/17 05:04 [place] Bodies Not Reportable 10/30/17 05:04 [place] Rings Not Reportable 10/30/17 05:04 Katja Cells Not Reportable 10/30/17 05:04 Bite Cells Not Reportable 10/30/17 05:04 Crenated Cell Not Reportable 10/30/17 05:04 Elliptocytes Not Reportable 10/30/17 05:04 Acanthocytes (Spur) Not Reportable 10/30/17 05:04 Rouleaux Not Reportable 10/30/17 05:04 Hemoglobin C Crystals Not Reportable 10/30/17 05:04 Schistocytes Not Reportable 10/30/17 05:04 Malaria parasites Not Reportable 10/30/17 05:04 Abhinav Bodies Not Reportable 10/30/17 05:04 Hem Pathologist Commnt No 10/30/17 05:04 PT 11.3 Sec. (12.2-14.9) L 10/28/17 21:25 INR 0.78 (0.87-1.13) L 10/28/17 21:25 Sodium 138 mmol/L (137-145) 10/30/17 05:04 Potassium 3.5 mmol/L (3.6-5.0) L 10/30/17 05:04 Chloride 99.1 mmol/L (98-107) 10/30/17 05:04 Carbon Dioxide 23 mmol/L (22-30) 10/30/17 05:04 Anion Gap 19 mmol/L 10/30/17 05:04 BUN 10 mg/dL (9-20) 10/30/17 05:04 Creatinine 0.9 mg/dL (0.8-1.5) 10/30/17 05:04 Estimated GFR > 60 ml/min 10/30/17 05:04 BUN/Creatinine Ratio 11 % 10/30/17 05:04 Glucose 71 mg/dL (75-100) L 10/30/17 05:04 Lactic Acid 1.60 mmol/L (0.7-2.0) 10/28/17 21:25 Calcium 8.6 mg/dL (8.4-10.2) 10/30/17 05:04 Magnesium 2.30 mg/dL (1.7-2.3) 10/28/17 21:25 Total Bilirubin 0.20 mg/dL (0.1-1.2) 10/28/17 21:25 AST 20 units/L (5-40) 10/28/17 21:25 ALT 22 units/L (7-56) 10/28/17 21:25 Alkaline Phosphatase 101 units/L (35-129) 10/28/17 21:25 Troponin T < 0.010 ng/mL (0.00-0.029) 10/28/17 21:25 Total Protein 7.9 g/dL (6.3-8.2) 10/28/17 21:25 Albumin 4.2 g/dL (3.9-5) 10/28/17 21:25 Albumin/Globulin Ratio 1.1 % 10/28/17 21:25 Urine Color Colorless (Yellow) 10/28/17 00:41 Urine Turbidity Clear (Clear) 10/28/17 00:41 Urine pH 8.0 (5.0-7.0) H 10/28/17 00:41 Ur Specific [place] 1.014 (1.003-1.030) 10/28/17 00:41 Urine Protein <15 mg/dl mg/dL (Negative) 10/28/17 00:41 Urine Glucose (UA) Neg mg/dL (Negative) 10/28/17 00:41 Urine Ketones Neg mg/dL (Negative) 10/28/17 00:41 Urine Blood Neg (Negative) 10/28/17 00:41 Urine Nitrite Neg (Negative) 10/28/17 00:41 Urine Bilirubin Neg (Negative) 10/28/17 00:41 Urine Urobilinogen < 2.0 mg/dL (<2.0) 10/28/17 00:41 Ur Leukocyte Esterase Neg (Negative) 10/28/17 00:41 Urine WBC (Auto) 2.0 /HPF (0.0-6.0) 10/28/17 00:41 Urine RBC (Auto) 1.0 /HPF (0.0-6.0) 10/28/17 00:41 Blood Type O POSITIVE 10/28/17 21:25 Antibody Screen Negative 10/28/17 21:25
[2017-10-30] MEDS: PROTONIX IV SCH ×2 (09:36→23:35)
[2017-10-30] MEDS: MIRALAX 3350 PO SCH (09:37)
[2017-10-30] MEDS: COLACE PO SCH ×2 (09:37→23:35)
[2017-10-30] MEDS: SODIUM CHLORIDE FLUSH SYRINGE 10 ML IV SCH ×2 (09:38→22:00)
--- NOTE | 2017-10-30 14:14 | Fluoroscopy Report ---
SMALL BOWEL SERIES: History: Small bowel obstruction. Barium passes through the small bowel in a normal transit time. There is a normal mucosal pattern with no contour abnormalities identified. IMPRESSION: Normal study.
--- NOTE | 2017-10-30 16:16 | Event Note ---
Date: 10/30/17 Pt seen. SBFT completed and within normal limits. Patient had multiple BMs and states abdominal pain is still present, RUQ. No n/v. Feels hungry. Will proceed with cholecystectomy today. Consent to be obtained.
[2017-10-30] MEDS ORDERED: XYLOCAINE MPF 2% ONE (16:39)
[2017-10-30] MEDS ORDERED: DECADRON ONE (16:39)
[2017-10-30] MEDS ORDERED: DIPRIVAN 10 MG/ML IV ONE (16:39)
[2017-10-30] MEDS ORDERED: ZOFRAN ONE ×2 (16:41→19:24)
[2017-10-30] MEDS ORDERED: DILAUDID ONE ×2 (16:42→21:00)
[2017-10-30] MEDS ORDERED: MARCAINE 0.25% INFILTRATI ONE ×2 (18:54→18:57)
[2017-10-30] MEDS ORDERED: XYLOCAINE 1% 20 mL ONE (18:54)
[2017-10-30] MEDS ORDERED: XYLOCAINE 1% 20 mL INFILTRATI ONE (18:57)
[2017-10-30] MEDS ORDERED: NEO SYNEPHRINE/NS Syringe(OR USE) IV ONE (19:01)
[2017-10-30] MEDS ORDERED: LACTATED RINGERS 1,000 ML ONE ×2 (19:14→20:28)
[2017-10-30] MEDS ORDERED: NACL 0.9% 1000 ML 2,000 ML ONE (19:14)
--- NOTE | 2017-10-30 19:17 | Anesthesia Day of Surgery ---
Anesthesia Day of Surgery - Day of Surgery Patient Examined: Yes Patient H&P Reviewed: Yes Patient is NPO: Yes
--- NOTE | 2017-10-30 19:18 | Anesthesia Consultation ---
Anesthesia Consult and Med Hx Date of service: 10/30/17 - Airway ROM Head & Neck: Adequate Mental/Hyoid Distance: Adequate Mallampati Class: Class II Intubation Access Assessment: Probably Good - Pulmonary Exam CTA: Yes - Cardiac Exam Cardiac Exam: RRR - Pre-Operative Health Status ASA Pre-Surgery Classification: ASA3, Emergency Proposed Anesthetic Plan: General
[2017-10-30] MEDS ORDERED: DEMEROL IV PRN (19:21)
[2017-10-30] MEDS ORDERED: ZOFRAN IV PRN (19:21)
--- NOTE | 2017-10-30 20:44 | Post Operative Note ---
Date of procedure: 10/30/17 Pre-op diagnosis: symptomatic cholelithiasis Post-op diagnosis: other (acute on chronic cholecystitis) Findings: Dense adhesions from omentum to abdominal wall and gallbladder. Dense adhesions from small bowel to anterior abdominal wall. Thick walled gallbladder with pericholecystic fluid and stones Procedure: Laparoscopic cholecystectomy, lysis of adhesions Anesthesia: MADDIEA, local Surgeon: DOMINIK PATINO Refractory Tile Helper: GERALD DHALIWAL Estimated blood loss: 50-100ml Pathology: list (gallbladder) Specimen disposition: to lab Condition: stable Disposition: PACU
--- NOTE | 2017-10-30 21:27 | Operative Report ---
Operative Report Operative Report: Date of procedure: 10/30/17 Pre-op diagnosis: symptomatic cholelithiasis Post-op diagnosis: other (acute on chronic cholecystitis) Findings: Dense adhesions from omentum to abdominal wall and gallbladder. Dense adhesions from small bowel to anterior abdominal wall. Thick walled gallbladder with pericholecystic fluid and stones Procedure: Laparoscopic cholecystectomy, lysis of adhesions Anesthesia: GRETCHEN, local Surgeon: DOMINIK PATINO Music Instructor: GERALD DHALIWAL Estimated blood loss: 50-100ml Pathology: list (gallbladder) Specimen disposition: to lab Condition: stable Disposition: PACU HPI an indication: 62-year-old male who presented to the hospital with complaints of severe right upper and lower quadrant abdominal pain. He was found to have cholelithiasis and possible narrowing of the terminal ileum on imaging consisting of CAT scan of the abdomen and pelvis and right upper quadrant ultrasound. The patient underwent a small bowel follow-through which was normal. He was also treated with nothing by mouth status, IV fluids, IV antibiotics. His right upper quadrant pain did not improve and therefore cholecystectomy was recommended. The patient was then consented for a laparoscopic possible open cholecystectomy. All risks, benefits, and alternatives to surgery were discussed and questions answered. The patient had a history of exploratory laparotomy 2. Procedure in detail: The patient was identified in the preoperative area and taken back to the operating room, placed on the operating room table in supine position. After anesthesia was induced, the abdomen was prepped and draped in usual sterile fashion and timeout was performed. Local anesthetic was infiltrated into all of the skin incision sites. Using a 15 blade a lower quadrant incision was made through which a 5 mm Optiview trocar was placed under direct visualization. The abdomen was then insufflated to 15 mmHg and the abdomen inspected. There was no underlying injury to the abdominal contents directly below or surrounding the trocar entry site. Of note, there were dense adhesions from the small bowel and omentum to the abdominal wall. An additional incision was made at the umbilicus and a 5 mm trocar was placed through this incision under direct visualization. Additional trochars could not be placed secondary to these dense adhesions of the omentum and small bowel to the anterior abdominal wall and therefore adhesiolysis was started. Using EndoShears, omental adhesions to the anterior abdominal wall were sharply dissected. There was enough abdominal wall exposed in the epigastrium, a 12 mm subxiphoid trocar was placed under direct visualization. Lysis of adhesions was commenced, this time using a Harmonic scalpel to take down omental adhesions in order to facilitate visualization of the gallbladder as well as placement of the 5 mm right lateral abdominal accounting administrative assistant port. Total lysis of adhesions time was 45 minutes. Then, an additional 5 mm right lateral abdominal port was placed. Gallbladder was visualized and appeared thickened and inflamed. The gallbladder was retracted cephalad and omental adhesions to the gallbladder and liver were taken down using Harmonic scalpel. Hemostasis was achieved along the way. The peritoneum overlying the medial aspect of the gallbladder was incised using the Harmonic scalpel and a dome down approach was taken to dissecting the gallbladder. The patient was placed into Trendelenburg and tilted to the left. The gallbladder was gently dissected off the liver bed until it could be adequately retracted cephalad and above the liver. These note that there was pericholecystic fluid. We then turned our attention to dissecting out the cystic duct and artery. Once the cystic duct and artery were the only 2 structures seen entering the gallbladder and the critical view was obtained, clips were placed. 3 clips were placed on the proximal aspect of the cystic artery and one distally and the artery was transected. One clip was placed on the proximal aspect of the cystic duct, which was short and it was transected distal to this clip. A PDS Endoloop was placed on the cystic duct proximal to the clip. The remaining gallbladder was then dissected off the liver bed using the harmonic scalpel, placed into an Endo Catch bag, and removed from the abdomen via the 12 mm subxiphoid port. The incision in the skin and fascia was slightly enlarged to accommodate removal of the large gallbladder. We then turned our attention to achieving hemostasis. The liver bed and Morison 's pouch were irrigated and the liver bed inspected. There was no bile leakage and minimal oozing from the liver bed. The clips and Endoloop were visualized and intact. Once the irrigant returned clear, dana powder was applied to the liver bed. The 12 mm port fascia was then closed with figure of 8-0 Vicryl sutures. The abdomen was then reinspected laparoscopically and the liver bed did not demonstrate any bleeding. The abdomen was once again inspected and there was no underlying injury to any of the abdominal contents. The remaining ports were removed under direct visualization. Skin incisions were closed with 4-0 Monocryl subcuticular stitches and skin glue. At the end of the case, all sponge, instrument, sharp counts were correct 2. Patient was awoken from anesthesia, extubated, taken to PACU in stable condition. Was made and through this a Veress needle was used to insufflate the abdomen. The position of the veress needle was confirmed with the saline drop test and the abdomen was then insufflated to 15 mmHg. The veress needle was then removed and a 5 mm trocar placed using Optiview trocar. The abdomen was then inspected and there was no underlying injury to any of the abdominal contents. An additional 12 mm subxyphoid port, and 2, 5mm RUQ ports were then placed under direct visualization. The patient was then placed into reverse Trendelberg and tilted to the left. The gallbladder was visualized and [ findings]. The gallbladder was grasped and lifted cephalad. The cystic duct and artery were then carefully dissected and the critical view obtained, and the cystic duct and artery were the only two structures seen entering the gallbladder. Three clips were then placed on the proximal aspect of the cystic duct and one clip distally, and 3 clips on the cystic artery proximally and one distal. The cystic duct and cystic artery were then transected in between the clips. The gallbladder was taken off the liver bed using hook electrocautery. The gallbladder was placed into a Endo Catch bag and removed from the abdomen via the 12mm port. The gallbladder fossa was then inspected and there was no identifiable bleeding or bile leakage. Hemostasis was ensured. The clips on the cystic duct and artery were visualized and intact. The patient was then placed into neutral position and Morison's pouch was irrigated and the irrigant returned clear. The 12 mm port fascia was closed with 2, interrupted 0 Vicryl sutures using the Pacheco Payne device. The remaining ports were removed under direct visualization. Skin incisions were closed with 4-0 Monocryl subcuticular stitches and skin glue. All skin incisions were once again infiltrated with local anesthetic. At the end case all sponge, instrument, sharp counts were correct 2. The patient was awoken from anesthesia, extubated, taken to PACU in stable condition.
[2017-10-30] MEDS ORDERED: TORADOL ONE (21:33)
[2017-10-30] MEDS ORDERED: TORADOL IV PRN (21:35)
[2017-10-31 06:08] LABS: Basophils % (Auto) 0.1 % (0.0-1.8); Hematocrit 37.3 % (35.5-45.6); Hemoglobin 12.6 gm/dl (11.8-15.2); Lymphocytes # (Auto) 0.6 K/mm3 (1.2-5.4); Lymphocytes % (Auto) 4.7 % (13.4-35.0); Mean Corpuscular HGB Conc 34 % (32-34); Mean Corpuscular Hemoglobin 32 pg (28-32); Mean Corpuscular Volume 95 fl (84-94); Monocytes # (Auto) 1.4 K/mm3 (0.0-0.8); Monocytes % (Auto) 10.2 % (0.0-7.3); Platelet Count 267 K/mm3 (140-440); Red Blood Count 3.92 M/mm3 (3.65-5.03); Red Cell Distribution Width 14.9 % (13.2-15.2)
[2017-10-31] MEDS: ZOSYN/NS 4.5GM/100ML 4.5 GM/100 ML VIAL IV SCH (06:11)
[2017-10-31] MEDS: DILAUDID IV PRN (06:16)
[2017-10-31 06:37] LABS: BUN/Creatinine Ratio 14; Blood Urea Nitrogen 14 mg/dL (9-20); Calcium 8.3 mg/dL (8.4-10.2); Hemolysis Index 7
[2017-10-31 07:28] VITALS: BP 129/78
--- NOTE | 2017-10-31 09:25 | Progress Note ---
Assessment and Plan 62 yo M s/p Laparoscopic cholecystectomy, lysis of adhesions POD 1 1. acute on chronic cholecystitis Plan: 1. Reg diet, patient encouraged to stay hydrated and to drink plenty of water 2. dc abx 3. dc IVF 4. prn PO pain control 5. OOB, ambulate 6. IS/pulm toilet 7. DVT ppx 8. stable for dc from surgery standpoint. Thank you. Please call with questions or concerns. Subjective Date of service: 10/31/17 Narrative: Pt seen and examined. c/o incisional pain when he coughs. No f/c, n/v. Pain is otherwise controlled. He is ambulating and urinating on his own. He tolerated a reg diet. He states abdominal pain that was present on admission is resolved. Objective Vital Signs - 12hr 10/30/17 10/30/17 10/30/17 21:30 21:33 21:34 Temperature Pulse Rate 111 H Respiratory 21 19 19 Rate Blood Pressure 142/75 O2 Sat by Pulse 96 Oximetry 10/30/17 10/30/17 10/30/17 21:45 21:47 21:59 Temperature Pulse Rate 112 H Respiratory 15 14 22 Rate Blood Pressure 130/73 O2 Sat by Pulse 95 Oximetry 10/30/17 10/30/17 10/30/17 22:00 22:10 22:15 Temperature Pulse Rate 111 H 105 H Respiratory 14 19 13 Rate Blood Pressure 118/66 111/75 O2 Sat by Pulse 97 95 Oximetry 10/30/17 10/30/17 10/30/17 22:30 22:40 22:55 Temperature 98.9 F 99.1 F Pulse Rate 104 H 107 H 103 H Respiratory 18 17 16 Rate Blood Pressure 118/77 115/76 120/73 O2 Sat by Pulse 95 96 94 Oximetry 10/30/17 10/31/17 23:37 05:08 Temperature 98.5 F 98.4 F Pulse Rate 103 H 99 H Respiratory 18 18 Rate Blood Pressure 119/75 129/78 O2 Sat by Pulse 93 98 Oximetry - General physical appearance Narrative Exam: Gen: AAOx3. NAD CV: S1, S2+ Resp: even and unlabored Abd: soft, ND, mild TTP near R sided incisions. Incisions c/d/i. Ext: no c/c/e - Labs 10/31/17 05:14 10/31/17 05:14 Diabetes panel 10/31/17 Range/Units 05:14 Sodium 138 (137-145) mmol/L Potassium 4.2 (3.6-5.0) mmol/L Chloride 103.4 (98-107) mmol/L Carbon Dioxide 24 (22-30) mmol/L BUN 14 (9-20) mg/dL Creatinine 1.0 (0.8-1.5) mg/dL Glucose 120 H (75-100) mg/dL Calcium 8.3 L (8.4-10.2) mg/dL Calcium panel 10/31/17 Range/Units 05:14 Calcium 8.3 L (8.4-10.2) mg/dL Pituitary panel 10/31/17 Range/Units 05:14 Sodium 138 (137-145) mmol/L Potassium 4.2 (3.6-5.0) mmol/L Chloride 103.4 (98-107) mmol/L Carbon Dioxide 24 (22-30) mmol/L BUN 14 (9-20) mg/dL Creatinine 1.0 (0.8-1.5) mg/dL Glucose 120 H (75-100) mg/dL Calcium 8.3 L (8.4-10.2) mg/dL Adrenal panel 10/31/17 Range/Units 05:14 Sodium 138 (137-145) mmol/L Potassium 4.2 (3.6-5.0) mmol/L Chloride 103.4 (98-107) mmol/L Carbon Dioxide 24 (22-30) mmol/L BUN 14 (9-20) mg/dL Creatinine 1.0 (0.8-1.5) mg/dL Glucose 120 H (75-100) mg/dL Calcium 8.3 L (8.4-10.2) mg/dL
--- NOTE | 2017-10-31 09:33 | Discharge Summary ---
<DOMINIK PATINO - Last Filed: 10/31/17 12:50> Providers - Providers Date of Admission: 10/28/17 23:29 Attending physician: ISIDORO BRANCH MD 10/28/17 22:28 Consult to Physician [CONS] Stat Comment: Consulting Provider: DOMINIK PATINO Physician Instructions: Reason For Exam: abd pain Primary care physician: CLIENT ENGAGEMENT MANAGER Hospitalization Condition: Stable Disposition: DC-01 TO HOME OR SELFCARE Exam - Constitutional Vitals: Temp Pulse Resp BP Pulse Ox 98.4 F 99 H 18 129/78 98 10/31/17 05:08 10/31/17 05:08 10/31/17 05:08 10/31/17 05:08 10/31/17 05:08 Plan Activity: other (do not drive if taking prescription pain medication. no heavy lifting more than 20lbs for the next 2 weeks) Diet: regular, low fat Wound: other (may shower, pat incisions dry. Do not scrub incisions or submerge in pools/hottubs/baths for 2 weeks) Follow up with: DOMINIK PATINO DO [Staff Physician] - 14 Days PRIMARY CARE, [Primary Care Provider] - 3-5 Days Prescriptions: oxyCODONE /ACETAMINOPHEN [Percocet 5/325 mg] 1 tab PO Q4H PRN #15 tablet PRN Reason: Pain, Moderate (4-6) <ISIDORO BRANCH - Last Filed: 11/02/17 17:24> Providers - Providers Date of Admission: 10/28/17 23:29 Attending physician: ISIDORO BRANCH MD 10/28/17 22:28 Consult to Physician [CONS] Stat Comment: Consulting Provider: DOMINIK PATINO Physician Instructions: Reason For Exam: abd pain Primary care physician: CLIENT ENGAGEMENT MANAGER Hospitalization Reason for admission: acute cholecystitis, adhesion Pertinent studies: Abdominal ultrasound IMPRESSION: 1. Gallstones within the gallbladder. No definite ultrasound evidence of acute cholecystitis. 2. Posterior body and tail of the pancreas not well visualized due to artifact. 3. Evidence of fatty infiltration/steatosis of the liver. CT of abdomen and pelvis Procedures: Laparoscopic cholecystectomy and lysis of adhesions Hospital course: History of present illness: Patient is a 62-year-old -[place] male with history of peptic ulcer disease who presented to the ED on account of a few hours history of generalized abdominal pain. He described it as sudden in onset, sharp in character, rated 10 over 10, nonradiating and constant in duration. No known aggravating or relieving factors. He has associated chills without fever. He denies nausea, vomiting, constipation, diarrhea, dysuria or frequency. No chest pain, cough, palpitation, leg swelling, headaches, dizziness, syncope or loss of consciousness. Agent was diagnosed with acute on chronic cholecystitis and surgery was consulted and did laparoscopic cholecystectomy, lysis of adhesions and patient was doing well after that. He was able to tolerate his diet and surgery recommended to DC IV antibiotics, IV fluids and discharged home. Patient was given short-term pain medicine. Patient is hemodynamically stable at the time of discharge. Patient scheduled to see general surgery as an outpatient. Patient advised to follow-up with primary care physician. - Discharge Diagnoses (1) Abdominal pain Status: Acute (2) SIRS (systemic inflammatory response syndrome) Status: Acute (3) Cholecystitis Status: Acute Core Measure Documentation - Palliative Care Palliative Care/ Comfort Measures: Not Applicable - Core Measures Any of the following diagnoses?: none Exam - Physical Exam Narrative exam: Not in cardiopulmonary distress. The patient appeared well nourished and normally developed. Vital signs as documented. Head exam is unremarkable. No scleral icterus . Neck is without jugular venous distension, thyromegaly, or carotid bruits. Lungs are clear to auscultation. Cardiac exam reveals regular rate and Rhythm. First and second heart sounds normal. No murmurs, rubs or gallops. Abdominal exam reveals normal bowel sounds, no masses, no organomegaly and no aortic enlargement. Extremities are nonedematous and both femoral and pedal pulses are normal. WAREHOUSE STOCK CLERK: Alert and oriented 3. No focal weakness. - Constitutional Vitals: Temp Pulse Resp BP Pulse Ox 98.4 F 99 H 18 129/78 98 10/31/17 05:08 10/31/17 05:08 10/31/17 05:08 10/31/17 05:08 10/31/17 05:08 Plan Activity: no restrictions Weight Bearing Status: Full Weight Bearing Diet: low fat, advance as tolerated Wound: per your surgeon's advice Additional Instructions: Follow up with PCP in 1-2 weeks
[2017-10-31] MEDS: PROTONIX IV SCH (09:56)
[2017-10-31] MEDS: COLACE PO SCH (09:56)
[2017-10-31] MEDS: SODIUM CHLORIDE FLUSH SYRINGE 10 ML IV SCH (09:57)
[2017-10-31] MEDS ORDERED: PROTONIX PO SCH (10:00)
== END 2017-10-31 12:35 | disposition home or self-care (01) | DRG 854 ==
LOC: ED 21:08 → 3A 23:29
PROVIDERS: ADMIT Internal Medicine; ATTEND Internal Medicine
PROC: 0FT44ZZ Resection of Gallbladder, Percutaneous Endoscopic Approach (ICD-10-PCS; principal; 2017-10-30)
PROC: 0DNU4ZZ Release Omentum, Percutaneous Endoscopic Approach (ICD-10-PCS; 2017-10-30)
PROC: 0DN84ZZ Release Small Intestine, Percutaneous Endoscopic Approach (ICD-10-PCS; 2017-10-30)
DX: A41.9 Sepsis, unspecified organism (principal); K56.7 Ileus, unspecified; K80.12 Calculus of gallbladder with acute and chronic cholecystitis without obstruction; M06.9 Rheumatoid arthritis, unspecified; K66.0 Peritoneal adhesions (postprocedural) (postinfection); F17.210 Nicotine dependence, cigarettes, uncomplicated; I70.293 Other atherosclerosis of native arteries of extremities, bilateral legs; R03.0 Elevated blood-pressure reading, without diagnosis of hypertension; Z82.49 Family history of ischemic heart disease and other diseases of the circulatory system; Z82.0 Family history of epilepsy and other diseases of the nervous system; Z87.11 Personal history of peptic ulcer disease; Z79.899 Other long term (current) drug therapy
CPT/HCPCS: 36415; 71045; 71275; 74174; 74250; 76705; 80048; 80053; 81001; 82140; 83735; 84484; 85007; 85025; 85610; 86850; 86900; 86901; 87040; 87086; 88304; 93005; 93010; 96365; 96375; 96376; 99291; C9113; J1100; J1170; J1885; J2370; J2405; J2543; J2704; J3010; J7030; J7040; J7050; J7120; Q9963; Q9967

== ENCOUNTER 2018-04-15 18:03 | Emergency (ER) | payer MEDICARE ==
[2018-04-15] MEDS ORDERED: NACL 0.9% 1000 ML 1,000 ML IV ONE (18:52)
[2018-04-15 19:43] LABS: Basophils # (Auto) 0.2 K/mm3 (0.0-0.1); Basophils % (Auto) 1.2 % (0.0-1.8); Eosinophils # (Auto) 0.5 K/mm3 (0.0-0.4); Eosinophils % (Auto) 3.7 % (0.0-4.3); Hematocrit 40.1 % (35.5-45.6); Hemoglobin 13.2 gm/dl (11.8-15.2); Lymphocytes # (Auto) 4.5 K/mm3 (1.2-5.4); Lymphocytes % (Auto) 34.1 % (13.4-35.0); Mean Corpuscular HGB Conc 33 % (32-34); Mean Corpuscular Volume 96 fl (84-94); Monocytes # (Auto) 1.1 K/mm3 (0.0-0.8); Monocytes % (Auto) 8.5 % (0.0-7.3); Platelet Count 232 K/mm3 (140-440); Red Blood Count 4.19 M/mm3 (3.65-5.03)
[2018-04-15] MEDS ORDERED: ZOFRAN IV ONE (19:57)
[2018-04-15] MEDS ORDERED: MORPHINE IV ONE ×2 (19:57→23:23)
[2018-04-15 19:58] LABS: Alanine Aminotransferase 24 units/L (7-56); Albumin 3.8 g/dL (3.9-5); BUN/Creatinine Ratio 21; Blood Urea Nitrogen 21 mg/dL (9-20); Calcium 8.9 mg/dL (8.4-10.2); Hemolysis Index 7; INR 0.82 (0.87-1.13)
[2018-04-15 19:59] LABS: Partial Thromboplastin Time 29.9 Sec. (24.2-36.6)
[2018-04-15] MEDS ORDERED: NACL 0.9% 500 ML 500 ML IV ONE ×2 (19:59→22:54)
[2018-04-15] MEDS ORDERED: K-DUR PO ONE (19:59)
--- NOTE | 2018-04-15 20:22 | Emergency Department Report ---
ED Abdominal Pain HPI - General Chief Complaint: Abdominal Pain Stated Complaint: ABDOMINAL BLEED/GI BLEED Time Seen by Provider: 04/15/18 19:20 Source: patient, EMS Mode of arrival: Stretcher Limitations: No Limitations - History of Present Illness Initial Comments: 62-year-old male with a past medical history of peptic ulcer disease requiring surgery and cholecystectomy with lysis of adhesions in October 2017 presents to the hospital complaints of generalized abdominal pain and one episode of diarrhea with dark stool. Patient has had generalized abdominal pain the past 2-3 days that is intermittent and worse with palpation. Patient had the nausea without vomiting. Today patient had one large loose stool was dark in color and malodorous. Patient denies bright red blood per rectum or fever. He states he's had endoscopy and colonoscopy within the last 2 weeks with the [facility] doctor. He states he had polyps with a polypectomy. He denies aspirin, NSAID, or anticoagulant use at this time. Patient also complains of bilateral ankle swelling and pain for several days. PMD: Dr. Wendi Galvan Severity scale (0 -10): 9 - Related Data Home Medications Medication Instructions Recorded Confirmed Last Taken Celecoxib 200 mg PO BID 10/29/17 04/15/18 04/15/18 predniSONE [Deltasone] 10 mg PO BID 10/29/17 04/15/18 04/15/18 Previous Rx's Medication Instructions Recorded Last Taken Type Ondansetron [Zofran Odt] 4 mg PO Q8HR PRN #15 tab.rapdis 04/16/18 Unknown Rx traMADol [Ultram 50 MG tab] 50 mg PO Q6HR PRN #20 tablet 04/16/18 Unknown Rx Allergies Allergy/AdvReac Type Severity Reaction Status Date / Time No Known Drug Allergies Allergy Unknown Verified 10/28/17 22:36 ED Review of Systems ROS: Stated complaint: ABDOMINAL BLEED/GI BLEED Other details as noted in HPI Comment: All other systems reviewed and negative ED Past Medical Hx - Past Medical History Hx Arthritis: Yes Additional medical history: G.I bleed, ulcer - Surgical History Additional Surgical History: hx of abd surgery for ulcer - Social History Smoking Status: Never Smoker Substance Use Type: None - Medications Home Medications: Home Medications Medication Instructions Recorded Confirmed Last Taken Type Celecoxib 200 mg PO BID 10/29/17 04/15/18 04/15/18 History predniSONE [Deltasone] 10 mg PO BID 10/29/17 04/15/18 04/15/18 History Ondansetron [Zofran Odt] 4 mg PO Q8HR PRN #15 tab.rapdis 04/16/18 Unknown Rx traMADol [Ultram 50 MG tab] 50 mg PO Q6HR PRN #20 tablet 04/16/18 Unknown Rx ED Physical Exam - General Limitations: No Limitations - Other Other exam information: General: No limitations, patient is alert in no acute distress Head exam: Atraumatic, normocephalic Eyes exam: Normal appearance ENT: Moist mucous membrane Neck exam: Normal inspection, full range of motion, no meningismus nontender Respiratory exam: Clear to auscultation bilateral, no wheezes, rales, crackles Cardiovascular: Normal rate and rhythm, normal heart sounds Abdomen: Soft, nondistended, midline vertical scar, generalized abd tenderness greatest in upper abd, with normal bowel sounds, no rebound, or guarding Rectal: no external lesions or hemorrhoids. Brown stool faintly guaiac positi ve. No gross blood or melena Extremity: Full range of motion, mild bilateral ankle swelling and tenderness. No warmth or erythema. Back: Normal Inspection, full range of motion, no tenderness Neurologic: Alert, oriented x3, cranial nerves intact, no motor or sensory deficit Psychiatric: normal affect, normal mood Skin: Warm, dry, intact ED Course Vital Signs 04/15/18 04/15/18 04/15/18 18:48 19:04 21:00 Temperature 98.6 F Pulse Rate 90 88 Respiratory 16 15 18 Rate Blood Pressure 122/77 125/82 [Left] O2 Sat by Pulse 97 97 Oximetry 04/16/18 00:05 Temperature Pulse Rate Respiratory 18 Rate Blood Pressure 119/80 [Left] O2 Sat by Pulse 100 Oximetry - Consultations Consultation #1: 04/15/18 23:15 case d/w Dr Meneses with GI, agree with outpt f/u ED Medical Decision Making - Lab Data Result diagrams: 04/15/18 19:16 04/15/18 19:16 Lab Results 04/15/18 04/15/18 04/15/18 Range/Units 19:16 19:16 19:16 WBC 13.1 H (4.5-11.0) K/mm3 RBC 4.19 (3.65-5.03) M/mm3 Hgb 13.2 (11.8-15.2) gm/dl Hct 40.1 (35.5-45.6) % MCV 96 H (84-94) fl MCH 31 (28-32) pg MCHC 33 (32-34) % RDW 15.0 (13.2-15.2) % Plt Count 232 (140-440) K/mm3 Lymph % (Auto) 34.1 (13.4-35.0) % [place] % (Auto) 8.5 H (0.0-7.3) % Eos % (Auto) 3.7 (0.0-4.3) % Baso % (Auto) 1.2 (0.0-1.8) % Lymph # 4.5 (1.2-5.4) K/mm3 [place] # 1.1 H (0.0-0.8) K/mm3 Eos # 0.5 H (0.0-0.4) K/mm3 Baso # 0.2 H (0.0-0.1) K/mm3 Seg Neutrophils % 52.5 (40.0-70.0) % Seg Neutrophils # 6.9 (1.8-7.7) K/mm3 PT 11.8 L (12.2-14.9) Sec. INR 0.82 L (0.87-1.13) APTT 29.9 (24.2-36.6) Sec. Sodium 144 (137-145) mmol/L Potassium 3.2 L (3.6-5.0) mmol/L Chloride 103.6 (98-107) mmol/L Carbon Dioxide 28 (22-30) mmol/L Anion Gap 16 mmol/L BUN 21 H (9-20) mg/dL Creatinine 1.0 (0.8-1.5) mg/dL Estimated GFR > 60 ml/min BUN/Creatinine Ratio 21 % Glucose 83 (75-100) mg/dL Calcium 8.9 (8.4-10.2) mg/dL Total Bilirubin 0.20 (0.1-1.2) mg/dL AST 22 (5-40) units/L ALT 24 (7-56) units/L Alkaline Phosphatase 83 (35-129) units/L Total Protein 6.8 (6.3-8.2) g/dL Albumin 3.8 L (3.9-5) g/dL Albumin/Globulin Ratio 1.3 % Urine Color (Yellow) Urine Turbidity (Clear) Urine pH (5.0-7.0) Ur Specific [place] (1.003-1.030) Urine Protein (Negative) mg/dL Urine Glucose (UA) (Negative) mg/dL Urine Ketones (Negative) mg/dL Urine Blood (Negative) Urine Nitrite (Negative) Urine Bilirubin (Negative) Urine Urobilinogen (<2.0) mg/dL Ur Leukocyte Esterase (Negative) Urine WBC (Auto) (0.0-6.0) /HPF Urine RBC (Auto) (0.0-6.0) /HPF U Epithel Cells (Auto) (0-13.0) /HPF Urine Mucus /HPF Blood Type Antibody Screen 04/15/18 04/15/18 Range/Units 19:16 22:58 WBC (4.5-11.0) K/mm3 RBC (3.65-5.03) M/mm3 Hgb (11.8-15.2) gm/dl Hct (35.5-45.6) % MCV (84-94) fl MCH (28-32) pg MCHC (32-34) % RDW (13.2-15.2) % Plt Count (140-440) K/mm3 Lymph % (Auto) (13.4-35.0) % [place] % (Auto) (0.0-7.3) % Eos % (Auto) (0.0-4.3) % Baso % (Auto) (0.0-1.8) % Lymph # (1.2-5.4) K/mm3 [place] # (0.0-0.8) K/mm3 Eos # (0.0-0.4) K/mm3 Baso # (0.0-0.1) K/mm3 Seg Neutrophils % (40.0-70.0) % Seg Neutrophils # (1.8-7.7) K/mm3 PT (12.2-14.9) Sec. INR (0.87-1.13) APTT (24.2-36.6) Sec. Sodium (137-145) mmol/L Potassium (3.6-5.0) mmol/L Chloride (98-107) mmol/L Carbon Dioxide (22-30) mmol/L Anion Gap mmol/L BUN (9-20) mg/dL Creatinine (0.8-1.5) mg/dL Estimated GFR ml/min BUN/Creatinine Ratio % Glucose (75-100) mg/dL Calcium (8.4-10.2) mg/dL Total Bilirubin (0.1-1.2) mg/dL AST (5-40) units/L ALT (7-56) units/L Alkaline Phosphatase (35-129) units/L Total Protein (6.3-8.2) g/dL Albumin (3.9-5) g/dL Albumin/Globulin Ratio % Urine Color Yellow (Yellow) Urine Turbidity Clear (Clear) Urine pH 5.0 (5.0-7.0) Ur Specific [place] > 1.059 H (1.003-1.030) Urine Protein <15 mg/dl (Negative) mg/dL Urine Glucose (UA) Neg (Negative) mg/dL Urine Ketones Neg (Negative) mg/dL Urine Blood Mod (Negative) Urine Nitrite Neg (Negative) Urine Bilirubin Neg (Negative) Urine Urobilinogen 2.0 (<2.0) mg/dL Ur Leukocyte Esterase Neg (Negative) Urine WBC (Auto) 0.0 (0.0-6.0) /HPF Urine RBC (Auto) 25.0 (0.0-6.0) /HPF U Epithel Cells (Auto) < 1.0 (0-13.0) /HPF Urine Mucus Few /HPF Blood Type O POSITIVE Antibody Screen Negative - Radiology Data Radiology results: report reviewed PROCEDURE: CT abdomen and pelvis with contrast. TECHNIQUE: Computerized axial tomography of the abdomen and pelvis was performed after the IV injection of iodinated nonionic contrast. CT DOSE LENGTH PRODUCT: 1211.12 mGycm HISTORY: gen abd pain, dark stool x 1 COMPARISONS: None. FINDINGS: The lung bases are clear. There are no pleural effusions. The heart size is normal. The liver, pancreas and spleen appear normal. Cholecystectomy clips are present. There is no biliary dilatation. The adrenal glands are not enlarged. Both kidneys appear normal in size and configuration. There are bilateral renal cysts. The abdominal aorta has a normal caliber. There is atherosclerotic calcification in the abdominal aorta and iliac arteries. There is no retroperitoneal adenopathy. The unopacified gastrointestinal tract is unremarkable. A normal appendix is visible. There are a few small diverticula in the descending colon and sigmoid colon. The bladder, seminal vesicles and prostate appear normal. The regional skeleton appears intact. IMPRESSION: Bilateral renal cysts. Previous cholecystectomy. Mild colonic diverticulosis. Atherosclerosis. No evidence of acute disease in the abdomen or pelvis. - Medical Decision Making not Q abdominal pathology identified. No signs of active bleeding in the ED. H&H stable. Recent EGD and colonoscopy performed as outpatient. Patient to follow up with primary care doctor in [facility] for further evaluation and monitoring. Also started to follow-up regarding nausea bilateral ankle pain and swelling ( no trauma reported or clinical signs of infection) - Differential Diagnosis PUD, post-polypectomy bleeding, anemia, obstruction/adhesions Critical Care Time: No Critical care attestation.: If time is entered above; I have spent that time in minutes in the direct care of this critically ill patient, excluding procedure time. ED Disposition Clinical Impression: Abdominal pain, Loose stools, Bilateral swelling of feet and ankles, Hypokalemia Disposition: TO HOME OR SELFCARE Is pt being admited?: No Does the pt Need Aspirin: No Condition: Stable Instructions: Abdominal Pain (ED), Leg Edema (ED) Additional Instructions: Take the medication as prescribed. Follow up with your doctor or the clinic/doctor provided. Return if symptoms worsen as indicated by your discharge instructions Prescriptions: traMADol [Ultram 50 MG tab] 50 mg PO Q6HR PRN #20 tablet PRN Reason: Pain Ondansetron [Zofran Odt] 4 mg PO Q8HR PRN #15 tab.rapdis PRN Reason: Nausea And Vomiting Referrals: WENDI GALVAN MD [Primary Care Provider] - 2-3 Days your, GI doctor [Other] - 2-3 Days Time of Disposition: 00:55
--- NOTE | 2018-04-15 22:08 | Cat Scan Report ---
PROCEDURE: CT abdomen and pelvis with contrast. TECHNIQUE: Computerized axial tomography of the abdomen and pelvis was performed after the IV inject ion of iodinated nonionic contrast. CT DOSE LENGTH PRODUCT: 1211.12 mGycm HISTORY: gen abd pain, dark stool x 1 COMPARISONS: None. FINDINGS: The lung bases are clear. There are no pleural effusions. The heart size is normal. The liver, pancre as and spleen appear normal. Cholecystectomy clips are present. There is no biliary dilatation. The a drenal glands are not enlarged. Both kidneys appear normal in size and configuration. There are bilat eral renal cysts. The abdominal aorta has a normal caliber. There is atherosclerotic calcification in the abdominal aorta and iliac arteries. There is no retroperitoneal adenopathy. The unopacified elías rointestinal tract is unremarkable. A normal appendix is visible. There are a few small diverticula i n the descending colon and sigmoid colon. The bladder, seminal vesicles and prostate appear normal. T he regional skeleton appears intact. IMPRESSION: Bilateral renal cysts. Previous cholecystectomy. Mild colonic diverticulosis. Atheroscle rosis. No evidence of acute disease in the abdomen or pelvis. This document is electronically signed by Tigre Madden MD., April 15 2018 10:05:51 PM ET
[2018-04-15 23:22] LABS: Bilirubin,Urine NEG (Negative); Blood,Urine MOD (Negative); Color,Urine Yellow (Yellow); Mucus,Urine FEW /HPF; Protein,Urine <15 mg/dL mg/dL (Negative)
[2018-04-15] MEDS ORDERED: MORPHINE ONE (23:26)
[2018-04-16 00:06] VITALS: BP 119/80
== END 2018-04-16 01:23 | disposition home or self-care (01) ==
LOC: ED 18:03
DX: E87.6 Hypokalemia (principal); R10.84 Generalized abdominal pain; R19.7 Diarrhea, unspecified; M79.89 Other specified soft tissue disorders; M19.90 Unspecified osteoarthritis, unspecified site
CPT/HCPCS: 36415; 74177; 80053; 81001; 82271; 85025; 85610; 85730; 86850; 86900; 86901; 96374; 96375; 96376; 99285; J2270; J2405; J7040; Q9967

== ENCOUNTER 2019-04-18 18:33 | Emergency (ER) | payer MEDICARE ==
--- NOTE | 2019-04-18 21:41 | Emergency Department Report ---
Blank Doc - Documentation Documentation: 63-year-old male that presents with left chest abscess. This initial assessment/diagnostic orders/clinical plan/treatment(s) is/are subject to change based on patient's health status, clinical progression and re- assessment by fellow clinical providers in the ED. Further treatment and workup at subsequent clinical providers discretion. Patient/guardians urged not to elope from the ED as their condition may be serious if not clinically assessed and managed. Initial orders include: 1- Patient sent to [facility] for further evaluation and treatment
[2019-04-18 21:43] VITALS: BP 112/81
[2019-04-18] MEDS ORDERED: HYDROcodone/ACETAMINOPHEN 5-325 MG TAB PO ONE (23:04)
[2019-04-18] MEDS ORDERED: ONDANSETRON 4 MG ODT TAB PO ONE (23:04)
[2019-04-18] MEDS ORDERED: IBUPROFEN 600 MG TAB PO ONE (23:04)
[2019-04-18] MEDS ORDERED: CLINDAMYCIN 300 MG CAP PO ONE (23:04)
[2019-04-18] MEDS ORDERED: SULFAMETHOXAZOLE/TRIMETHOPRIM 800/160MG DS TAB PO ONE (23:04)
--- NOTE | 2019-04-18 23:47 | Emergency Department Report ---
ED General Adult HPI - General Chief complaint: Skin/Abscess/Foreign Body Stated complaint: CHEST HAS OPEN SORES Time Seen by Provider: 04/18/19 21:41 Source: patient Mode of arrival: Ambulatory Limitations: No Limitations - History of Present Illness Initial comments: Patient is a 63-year-old -Irish male with no past medical history who presents to the ED with complaint of acute onset painful swelling erythematous maculopapular rash with open wounds on the anterior left chest wall and left lateral chest wall for the last 1 week. Patient states that the wounds have opened and now draining thick purulent discharge in the last 2 days. Patient denies fever, chills, nausea, vomiting, dizziness, traumatic injury, shortness of breath, change in vision, syncope or abdominal pain. MD Complaint: Left chest wall open wound -: Sudden, week(s) (1) Location: chest Radiation: non-radiation Severity scale (0 -10): 7 Quality: aching, sharp Consistency: constant Improves with: none Worsens with: none Associated Symptoms: denies other symptoms, rash (Erythematous open wound on left chest wall with purulent discharge). denies: confusion, chest pain, cough, diaphoresis, fever/chills, headaches, loss of appetite, malaise, shortness of breath, syncope, weakness Treatments Prior to Arrival: none - Related Data Home Medications Medication Instructions Recorded Confirmed Last Taken Celecoxib 200 mg PO BID 10/29/17 04/15/18 04/15/18 predniSONE [Deltasone] 10 mg PO BID 10/29/17 04/15/18 04/15/18 Previous Rx's Medication Instructions Recorded Last Taken Type Ondansetron [Zofran Odt] 4 mg PO Q8HR PRN #15 tab.rapdis 04/16/18 Unknown Rx traMADoL [Ultram 50 MG tab] 50 mg PO Q6HR PRN #20 tablet 04/16/18 Unknown Rx Acetaminophen/Codeine [Tylenol 1 tab PO Q6H PRN #12 tab 04/18/19 Unknown Rx /Codeine # 3 tab] Clindamycin [Clindamycin CAP] 300 mg PO Q8HR #60 capsule 04/18/19 Unknown Rx Ibuprofen [Motrin] 600 mg PO Q8H PRN #30 tablet 04/18/19 Unknown Rx Mupirocin [Bactroban 2% OINT] 1 applic TP TID #1 tube 04/18/19 Unknown Rx Ondansetron [Zofran Odt] 4 mg PO Q6HR PRN #20 tab.rapdis 04/18/19 Unknown Rx Sulfamethoxazole/Trimethoprim 1 each PO Q12H #20 tablet 04/18/19 Unknown Rx [Bactrim DS TAB] Allergies Allergy/AdvReac Type Severity Reaction Status Date / Time No Known Drug Allergies Allergy Unknown Verified 10/28/17 22:36 ED Review of Systems ROS: Stated complaint: CHEST HAS OPEN SORES Other details as noted in HPI Constitutional: denies: chills, fever Eyes: denies: eye pain, eye discharge, vision change ENT: denies: ear pain, throat pain Respiratory: denies: cough, shortness of breath, wheezing Cardiovascular: chest pain (Left chest wall pain due to mild erythematous maculopapular rash with thick purulent discharge). denies: palpitations Endocrine: no symptoms reported Gastrointestinal: denies: abdominal pain, nausea, diarrhea Genitourinary: denies: urgency, dysuria Musculoskeletal: denies: back pain, joint swelling, arthralgia Skin: rash (Erythematous maculopapular rash with thick purulent discharge on the left chest wall), change in color. denies: lesions Neurological: denies: headache, weakness, paresthesias Psychiatric: denies: anxiety, depression Hematological/Lymphatic: denies: easy bleeding, easy bruising ED Past Medical Hx - Past Medical History Previous Medical History?: Yes Hx Arthritis: Yes Additional medical history: G.I bleed, ulcer - Surgical History Additional Surgical History: hx of abd surgery for ulcer - Social History Smoking Status: Current Every Day Smoker - Medications Home Medications: Home Medications Medication Instructions Recorded Confirmed Last Taken Type Celecoxib 200 mg PO BID 10/29/17 04/15/18 04/15/18 History predniSONE [Deltasone] 10 mg PO BID 10/29/17 04/15/18 04/15/18 History Ondansetron [Zofran Odt] 4 mg PO Q8HR PRN #15 tab.rapdis 04/16/18 Unknown Rx traMADoL [Ultram 50 MG tab] 50 mg PO Q6HR PRN #20 tablet 04/16/18 Unknown Rx Acetaminophen/Codeine [Tylenol 1 tab PO Q6H PRN #12 tab 04/18/19 Unknown Rx /Codeine # 3 tab] Clindamycin [Clindamycin CAP] 300 mg PO Q8HR #60 capsule 04/18/19 Unknown Rx Ibuprofen [Motrin] 600 mg PO Q8H PRN #30 tablet 04/18/19 Unknown Rx Mupirocin [Bactroban 2% OINT] 1 applic TP TID #1 tube 04/18/19 Unknown Rx Ondansetron [Zofran Odt] 4 mg PO Q6HR PRN #20 tab.rapdis 04/18/19 Unknown Rx Sulfamethoxazole/Trimethoprim 1 each PO Q12H #20 tablet 04/18/19 Unknown Rx [Bactrim DS TAB] ED Physical Exam - General Limitations: No Limitations General appearance: alert, in no apparent distress - Head Head exam: Present: atraumatic, normocephalic, normal inspection - Eye Eye exam: Present: normal appearance, PERRL, EOMI Pupils: Present: normal accommodation - ENT ENT exam: Present: normal exam, normal orophraynx, mucous membranes moist, TM's normal bilaterally, normal external ear exam - Neck Neck exam: Present: normal inspection, full ROM. Absent: tenderness, meningismus, lymphadenopathy, thyromegaly - Respiratory Respiratory exam: Present: normal lung sounds bilaterally, chest wall tenderness (Palpable left lateral and anterior chest wall tenderness due to open wounds with thick purulent discharge). Absent: respiratory distress - Cardiovascular Cardiovascular Exam: Present: normal rhythm, tachycardia, normal heart sounds. Absent: systolic murmur, diastolic murmur, rubs, gallop - GI/Abdominal GI/Abdominal exam: Present: soft, normal bowel sounds. Absent: tenderness, hyperactive bowel sounds, hypoactive bowel sounds, organomegaly - Extremities Exam Extremities exam: Present: normal inspection, full ROM, normal capillary refill - Back Exam Back exam: Present: normal inspection, full ROM. Absent: tenderness, CVA tenderness (R), CVA tenderness (L), muscle spasm, paraspinal tenderness, vertebral tenderness - Neurological Exam Neurological exam: Present: alert, oriented X3, CN II-XII intact, normal gait, reflexes normal - Psychiatric Psychiatric exam: Present: normal affect, normal mood - Skin Skin exam: Present: warm, dry, intact, normal color, rash (Open wound on left lateral and anterior chest wall with thick purulent discharge), erythema ED Course Vital Signs 03/12/20 18:53 Temperature 98.3 F Pulse Rate 134 H Respiratory 20 Rate Blood Pressure 112/81 O2 Sat by Pulse 96 Oximetry ED Medical Decision Making - Medical Decision Making This is a 63-year-old male with no past medical history who presented to the ED with painful wound on the left lateral and anterior chest wall with thick purulent discharge for the last 1 week. In the ED, patient is alert and oriented x3 and is not in any distress but appears to be in significant pain, is tachycardic but afebrile in triage. Patient was treated for pain in the ED and also given oral antibiotics in the ED. The wounds were cleaned with normal saline and dressed appropriately with 4 x 4 gauze and Tegaderm. Patient was discharged home on pain medications and oral antibiotics and was referred to the wound clinic for appropriate care. Patient was advised to follow-up with wound clinic in the next 2 to 3 days for reevaluation or return to the ED immediately if symptoms get worse. - Differential Diagnosis cellulitis; folliculitis; Abscess of chest wall Critical care attestation.: If time is entered above; I have spent that time in minutes in the direct care of this critically ill patient, excluding procedure time. ED Disposition Clinical Impression: Abscess or cellulitis of chest wall Disposition: DC-[id number] TO HOME OR SELFCARE Is pt being admited?: No Does the pt Need Aspirin: No Condition: Stable Instructions: Cellulitis (ED), Abscess (ED) Additional Instructions: Take medication with food, drink plenty fluids and follow-up with your primary care physician in 7 to 10 days for reevaluation. Return to the ED immediately if symptoms get worse. Prescriptions: Sulfamethoxazole/Trimethoprim [Bactrim DS TAB] 1 each PO Q12H #20 tablet Mupirocin [Bactroban 2% OINT] 1 applic TP TID #1 tube Clindamycin [Clindamycin CAP] 300 mg PO Q8HR #60 capsule Ibuprofen [Motrin] 600 mg PO Q8H PRN #30 tablet PRN Reason: Pain Acetaminophen/Codeine [Tylenol /Codeine # 3 tab] 1 tab PO Q6H PRN #12 tab PRN Reason: Pain , Severe (7-10) Ondansetron [Zofran Odt] 4 mg PO Q6HR PRN #20 tab.rapdis PRN Reason: Nausea Referrals: DAVID GALVAN MD [Primary Care Provider] - 3-5 Days [facility]] - 3-5 Days Time of Disposition: 23:50 Print Language: BUR[place]
== END 2019-04-19 00:22 | disposition home or self-care (01) ==
LOC: ED 18:33
DX: L03.313 Cellulitis of chest wall (principal); M19.91 Primary osteoarthritis, unspecified site; K92.2 Gastrointestinal hemorrhage, unspecified; F17.200 Nicotine dependence, unspecified, uncomplicated; Z98.890 Other specified postprocedural states; Z79.1 Long term (current) use of non-steroidal anti-inflammatories (NSAID); Z79.899 Other long term (current) drug therapy
CPT/HCPCS: 99282; Q0162

== ENCOUNTER 2020-05-26 15:19 | Emergency (ER) | payer MEDICARE ==
[2020-05-26 16:10] VITALS: BP 133/89
--- NOTE | 2020-05-26 16:25 | Emergency Department Report ---
ED General Adult HPI - General Chief complaint: Extremity Injury, Upper Stated complaint: FINGER INJURY Time Seen by Provider: 05/26/20 16:15 Source: patient Mode of arrival: Ambulatory Limitations: No Limitations - History of Present Illness Initial comments: Patient is a 64-year-old male who presents emergency room with complaints of a right middle finger infection that began a month ago. He states a month ago he noticed some swelling to the distal end of his right middle finger. He states over the last couple days it began to open and draining purulent drainage. He denies any fever, difficulty moving the finger, vomiting, diarrhea, chills. He denies biting his nail, any abrasion or laceration, any trauma. He has a past medical history of rheumatoid arthritis and takes steroids and celecoxib. No allergies to medications. - Related Data Home Medications Medication Instructions Recorded Confirmed Last Taken Celecoxib 200 mg PO BID 10/29/17 04/15/18 04/15/18 predniSONE 10 mg PO BID 10/29/17 04/15/18 04/15/18 Previous Rx's Medication Instructions Recorded Last Taken Type Ondansetron [Zofran Odt] 4 mg PO Q8HR PRN #15 tab.rapdis 04/16/18 Unknown Rx traMADoL [Ultram 50 MG tab] 50 mg PO Q6HR PRN #20 tablet 04/16/18 Unknown Rx Acetaminophen/Codeine [Tylenol 1 tab PO Q6H PRN #12 tab 04/18/19 Unknown Rx /Codeine # 3 tab] Clindamycin [Clindamycin CAP] 300 mg PO Q8HR #60 capsule 04/18/19 Unknown Rx Ibuprofen [Motrin] 600 mg PO Q8H PRN #30 tablet 04/18/19 Unknown Rx Mupirocin [Bactroban 2% OINT] 1 applic TP TID #1 tube 04/18/19 Unknown Rx Ondansetron [Zofran Odt] 4 mg PO Q6HR PRN #20 tab.rapdis 04/18/19 Unknown Rx Sulfamethoxazole/Trimethoprim 1 each PO Q12H #20 tablet 04/18/19 Unknown Rx [Bactrim DS TAB] Clindamycin [Clindamycin CAP] 450 mg PO Q8HR 7 Days #63 capsule 05/26/20 Unknown Rx Neomycin/Bacitracin/Polymyxinb 1 applicatio TP BID #14 oint...g. 04/20/21 Unknown Rx [Triple Antibiotic Ointment] traMADoL [Ultram 50 MG tab] 50 mg PO Q6HR PRN #10 tablet 05/26/20 Unknown Rx Allergies Allergy/AdvReac Type Severity Reaction Status Date / Time No Known Drug Allergies Allergy Unknown Verified 05/26/20 16:11 ED Review of Systems ROS: Stated complaint: FINGER INJURY Other details as noted in HPI Comment: All other systems reviewed and negative ED Past Medical Hx - Past Medical History Hx Arthritis: Yes Additional medical history: G.I bleed, ulcer - Surgical History Additional Surgical History: hx of abd surgery for ulcer - Social History Smoking Status: Current Some Day Smoker Substance Use Type: None - Medications Home Medications: Home Medications Medication Instructions Recorded Confirmed Last Taken Type Celecoxib 200 mg PO BID 10/29/17 04/15/18 04/15/18 History predniSONE 10 mg PO BID 10/29/17 04/15/18 04/15/18 History Ondansetron [Zofran Odt] 4 mg PO Q8HR PRN #15 tab.rapdis 04/16/18 Unknown Rx traMADoL [Ultram 50 MG tab] 50 mg PO Q6HR PRN #20 tablet 04/16/18 Unknown Rx Acetaminophen/Codeine [Tylenol 1 tab PO Q6H PRN #12 tab 04/18/19 Unknown Rx /Codeine # 3 tab] Clindamycin [Clindamycin CAP] 300 mg PO Q8HR #60 capsule 04/18/19 Unknown Rx Ibuprofen [Motrin] 600 mg PO Q8H PRN #30 tablet 04/18/19 Unknown Rx Mupirocin [Bactroban 2% OINT] 1 applic TP TID #1 tube 04/18/19 Unknown Rx Ondansetron [Zofran Odt] 4 mg PO Q6HR PRN #20 tab.rapdis 04/18/19 Unknown Rx Sulfamethoxazole/Trimethoprim 1 each PO Q12H #20 tablet 04/18/19 Unknown Rx [Bactrim DS TAB] Clindamycin [Clindamycin CAP] 450 mg PO Q8HR 7 Days #63 capsule 05/26/20 Unknown Rx Neomycin/Bacitracin/Polymyxinb 1 applicatio TP BID #14 oint...g. 05/26/20 Unknown Rx [Triple Antibiotic Ointment] traMADoL [Ultram 50 MG tab] 50 mg PO Q6HR PRN #10 tablet 05/26/20 Unknown Rx ED Physical Exam - General Limitations: No Limitations General appearance: alert, in no apparent distress - Head Head exam: Present: atraumatic, normocephalic - Eye Eye exam: Present: normal appearance - ENT ENT exam: Present: mucous membranes moist - Respiratory Respiratory exam: Present: normal lung sounds bilaterally. Absent: respiratory distress, wheezes, rales, rhonchi, stridor, chest wall tenderness, accessory muscle use, decreased breath sounds, prolonged expiratory - Cardiovascular Cardiovascular Exam: Present: normal rhythm, tachycardia, normal heart sounds. Absent: systolic murmur, diastolic murmur, rubs, gallop - Extremities Exam Extremities exam: Present: other (edema present to the distal end of the right middle finger, there is an opening to the right middle finger nailbed with purulent drainage present, FROM of the digit, neurovascularly intact) - Neurological Exam Neurological exam: Present: alert, oriented X3 - Psychiatric Psychiatric exam: Present: normal affect, normal mood - Skin Skin exam: Present: warm, dry ED Course Vital Signs 05/26/20 05/26/20 16:06 19:05 Temperature 98.3 F Pulse Rate 119 H 96 H Respiratory 18 Rate Blood Pressure 133/89 O2 Sat by Pulse 95 98 Oximetry ED Medical Decision Making - Lab Data Result diagrams: 05/26/20 16:26 05/26/20 16:26 Lab Results 05/26/20 05/26/20 Range/Units 16:26 16:26 WBC 17.4 H (4.5-11.0) K/mm3 RBC 4.55 (3.65-5.03) M/mm3 Hgb 14.5 (11.8-15.2) gm/dl Hct 43.5 (35.5-45.6) % MCV 96 H (84-94) fl MCH 32 (28-32) pg MCHC 33 (32-34) % RDW 13.9 (13.2-15.2) % Plt Count 228 (140-440) K/mm3 Add Manual Diff Complete Total Counted 100 Seg Neuts % (Manual) 81.0 H (40.0-70.0) % Band Neutrophils % 1.0 % Lymphocytes % (Manual) 11.0 L (13.4-35.0) % Monocytes % (Manual) 7.0 (0.0-7.3) % Nucleated RBC % Not Reportable Seg Neutrophils # Man 14.1 H (1.8-7.7) K/mm3 Band Neutrophils # 0.2 K/mm3 Lymphocytes # (Manual) 1.9 (1.2-5.4) K/mm3 Abs React Lymphs (Man) 0.0 K/mm3 Monocytes # (Manual) 1.2 H (0.0-0.8) K/mm3 Eosinophils # (Manual) 0.0 (0.0-0.4) K/mm3 Basophils # (Manual) 0.0 (0.0-0.1) K/mm3 Metamyelocytes # 0.0 K/mm3 Myelocytes # 0.0 K/mm3 Promyelocytes # 0.0 K/mm3 Blast Cells # 0.0 K/mm3 WBC Morphology Not Reportable Hypersegmented Neuts Not Reportable Hyposegmented Neuts Not Reportable Hypogranular Neuts Not Reportable Smudge Cells Not Reportable Toxic Granulation Not Reportable Toxic Vacuolation Not Reportable Dohle Bodies Not Reportable Pelger-Huet Anomaly Not Reportable Alice Rods Not Reportable Platelet Estimate Consistent w auto Clumped Platelets Not Reportable Plt Clumps, EDTA Not Reportable Large Platelets Not Reportable Giant Platelets Not Reportable Platelet Satelliting Not Reportable Plt Morphology Comment Not Reportable RBC Morphology Normal Dimorphic RBCs Not Reportable Polychromasia Not Reportable Hypochromasia Not Reportable Poikilocytosis Not Reportable Anisocytosis Not Reportable Microcytosis Not Reportable Macrocytosis Not Reportable Spherocytes Not Reportable Pappenheimer Bodies Not Reportable Sickle Cells Not Reportable Target Cells Not Reportable Tear Drop Cells Not Reportable Ovalocytes Not Reportable Helmet Cells Not Reportable Rangel-[place] Bodies Not Reportable [place] Rings Not Reportable Katja Cells Not Reportable Bite Cells Not Reportable Crenated Cell Not Reportable Elliptocytes Not Reportable Acanthocytes (Spur) Not Reportable Rouleaux Not Reportable Hemoglobin C Crystals Not Reportable Schistocytes Not Reportable Malaria parasites Not Reportable Abhinav Bodies Not Reportable Hem Pathologist Commnt No Sodium 140 (137-145) mmol/L Potassium 4.3 (3.6-5.0) mmol/L Chloride 102.3 (98-107) mmol/L Carbon Dioxide 28 (22-30) mmol/L Anion Gap 14 mmol/L BUN 21 H (9-20) mg/dL Creatinine 0.9 (0.8-1.3) mg/dL Estimated GFR > 60 ml/min BUN/Creatinine Ratio 23 % Glucose 99 (75-100) mg/dL Calcium 9.4 (8.4-10.2) mg/dL Magnesium 2.00 (1.7-2.3) mg/dL Total Bilirubin 0.40 (0.1-1.2) mg/dL AST 17 (5-40) units/L ALT 16 (7-56) units/L Alkaline Phosphatase 100 (35-129) units/L Total Creatine Kinase 153 (55-170) units/L Total Protein 7.6 (6.3-8.2) g/dL Albumin 4.0 (3.9-5) g/dL Albumin/Globulin Ratio 1.1 % Vital Signs 05/26/20 05/26/20 16:06 19:05 Temperature 98.3 F Pulse Rate 119 H 96 H Respiratory 18 Rate Blood Pressure 133/89 O2 Sat by Pulse 95 98 Oximetry - EKG Data EKG shows normal: sinus rhythm, intervals, QRS complexes, ST-T waves Rate: tachycardia - EKG Data 05/26/20 21:40 RAD no STEMI - Radiology Data Radiology results: report reviewed Ordering Physician: SOWMYA JANG Date of Service: 05/26/20 Procedure(s): XR hand 3+V RT Accession Number(s): [id number] cc: SOWMYA JANG Fluoro Time In Minutes: HISTORY:right middle finger swelling/infection COMPARISON: None. TECHNIQUE: AP lateral and obliques views were obtained FINDINGS: Bones: Irregularity of the distal tuft third digit noted soft tissue edema is present. Joint spaces: Moderate to severe degenerative changes are present first carpal metacarpal articulation, second metacarpal phalangeal articulation, third metacarpal pharyngeal articulation and marked degenerative changes of the radiocarpal articulation. Soft tissues: No significant abnormality. Additional findings: None. IMPRESSION: 1. Abnormal appearance distal tuft third digit, osteomyelitis should be considered 2. Degenerative changes as noted Signer Name: Greg Ibarra MD Signed: 05/26/2020 5:45 PM Workstation Name: [id number] Transcribed By: MAX Dictated By: Greg Ibarra MD Electronically Authenticated By: Greg Ibarra MD Signed Date/Time: 05/26/201744 DD/ 42 TD/TT: - Medical Decision Making Patient is a 64-year-old male who presents emergency room with complaints of a right middle finger infection that began a month ago. He states a month ago he noticed some swelling to the distal end of his right middle finger. He states over the last couple days it began to open and draining purulent drainage. He denies any fever, difficulty moving the finger, vomiting, diarrhea, chills. He denies biting his nail, any abrasion or laceration, any trauma. He has a past medical history of rheumatoid arthritis and takes steroids and celecoxib. No allergies to medications. Initial vitals with tachycardia which improved upon repeat. EKG shows sinus tach, right axis deviation, otherwise stable. On exam:edema present to the distal end of the right middle finger, there is an opening to the right middle finger nailbed with purulent drainage present, FROM of the digit, neurovascularly intact. Examination appears consistent with paronychia which appears to already be open and draining. No signs of septic joint or infectious tenosynovitis. XR right hand: 1. Abnormal appearance distal tuft third digit, osteomyelitis should be considered 2. Degenerative changes as noted. Discussed case with Dr. Mendoza, ER attending regarding patient presentation and results, advised to give the patient IV clindamycin in the emergency department and send patient home on p.o. clindamycin and have patient follow-up with orthopedic doctor as an outpatient. Discussed all results with patient answered questions. Discussed the importance of follow-up. Discussed return precautions. Advised patient Please use medication as prescribed. Please follow-up with Dr. Oro, orthopedic in the next 2 days. Return to emergency room for new or worsening symptoms. Critical care attestation.: If time is entered above; I have spent that time in minutes in the direct care of this critically ill patient, excluding procedure time. ED Disposition Clinical Impression: Paronychia, Abnormal x-ray Leukocytosis Qualifiers: Leukocytosis type: unspecified Qualified Code(s): D72.829 - Elevated white blood cell count, unspecified Disposition: TO HOME OR SELFCARE Is pt being admited?: No Does the pt Need Aspirin: No Condition: Stable Additional Instructions: Please use medication as prescribed. Please follow-up with Dr. Oro, orthopedic in the next 2 days. Return to emergency room for new or worsening symptoms. Prescriptions: Clindamycin [Clindamycin CAP] 450 mg PO Q8HR 7 Days #63 capsule Neomycin/Bacitracin/Polymyxinb [Triple Antibiotic Ointment] 1 applicatio TP BID #14 oint...g. traMADoL [Ultram 50 MG tab] 50 mg PO Q6HR PRN #10 tablet PRN Reason: Pain , Severe (7-10) Referrals: RON ORO MD [Staff Physician] - 2-3 Days Time of Disposition: 18:18 Print Language: [place] ISLAND[place]
[2020-05-26 16:44] LABS: Hematocrit 43.5 % (35.5-45.6); Hemoglobin 14.5 gm/dl (11.8-15.2); Mean Corpuscular HGB Conc 33 % (32-34); Mean Corpuscular Volume 96 fl (84-94); Platelet Count 228 K/mm3 (140-440); Red Blood Count 4.55 M/mm3 (3.65-5.03); Red Cell Distribution Width 13.9 % (13.2-15.2)
[2020-05-26 17:07] LABS: Alanine Aminotransferase 16 units/L (7-56); BUN/Creatinine Ratio 23; Blood Urea Nitrogen 21 mg/dL (9-20); Calcium 9.4 mg/dL (8.4-10.2); Hemolysis Index 2
[2020-05-26] MEDS ORDERED: CLINDAMYCIN 600 MG/50 mL 600 MG/50 ML BAG IV ONE (17:41)
[2020-05-26 17:44] LABS: Band Neutrophils # (Manual) 0.2 K/mm3; Total Cells Counted 100
[2020-05-26 17:45] LABS: Platelet Estimate Consistent w Auto; RBC Morphology Normal
--- NOTE | 2020-05-26 17:49 | XRay Report ---
HISTORY:right middle finger swelling/infection COMPARISON: None. TECHNIQUE: AP lateral and obliques views were obtained FINDINGS: Bones: Irregularity of the distal tuft third digit noted soft tissue edema is present. Joint spaces: Moderate to severe degenerative changes are present first carpal metacarpal articulatio n, second metacarpal phalangeal articulation, third metacarpal pharyngeal articulation and marked deg enerative changes of the radiocarpal articulation. Soft tissues: No significant abnormality. Additional findings: None. IMPRESSION: 1. Abnormal appearance distal tuft third digit, osteomyelitis should be considered 2. Degenerative changes as noted Signer Name: Greg Ibarra MD Signed: 05/26/2020 5:45 PM Workstation Name: [id number]
--- NOTE | 2020-05-28 09:33 | Electrocardiograph Report ---
[facility] Test Date: 2020-05-26 Test Time: 16:17:34 Pat Name: KALIN MEZA Department: Room: Gender: M Glove Maker: TV : 1955 Requested By: CHANDLER MANZO Order Number: [id number] Reading MD: Phu Donald Measurements Intervals [place] Rate: 110 P: 74 NC: 125 QRS: 91 QRSD: 79 T: 44 QT: 325 QTc: 441 Interpretive Statements Sinus tachycardia Probable left atrial enlargement Right axis deviation No previous ECG available for comparison Electronically Signed On 05-28-2020 9:32:53 EDT by Phu Donald
== END 2020-05-26 20:29 | disposition home or self-care (01) ==
LOC: ED 15:19
DX: L03.011 Cellulitis of right finger (principal); D72.829 Elevated white blood cell count, unspecified; R93.89 Abnormal findings on diagnostic imaging of other specified body structures; M19.90 Unspecified osteoarthritis, unspecified site; F17.200 Nicotine dependence, unspecified, uncomplicated; Z79.899 Other long term (current) drug therapy; Z98.890 Other specified postprocedural states
CPT/HCPCS: 36415; 80053; 82550; 83735; 85007; 85025; 93005; 96365; 96366

== ENCOUNTER 2020-06-07 16:55 | Inpatient (IN) | payer MEDICARE ==
[2020-06-07] MEDS ORDERED: SODIUM CHLORIDE 0.9% 1000 ML 1,000 ML IV ONE ×2 (19:16→20:49)
--- NOTE | 2020-06-07 19:17 | Emergency Department Report ---
Upper Extremity - HPI Chief Complaint: Extremity Injury, Upper Stated Complaint: MIDDLE FINGER INFECTION Time Seen by Provider: 06/07/20 19:07 Upper Extremity: Right Middle Finger Occurred When: >5 Days Severity: severe Symptoms: Yes Pain with Movement, Yes Limited Range of Movement, Yes Swelling, Yes Laceration or Abrasion, No Deformity, No Numbness, No Weakness Other History: 64-year-old -[place]oven[place] male presents to the emergency room for right hand middle finger swelling discharge around the nail. Patient was here back in 05/26/2020 at that time he had IV clindamycin. Patient was discharged on clindamycin steroids and bacitracin ointment. Patient failed to follow-up with orthopedics. Patient presents now with worsening symptoms states he is having difficulty bending his finger swelling has doubled in pain is a 10 out of 10. Patient does have a history of rheumatoid arthritis. He does take steroids on and Celebrex on a daily basis. Patient denies any diabetes no hypertension. It was noted that patient had a low-grade fever of 99.1 and tachycardic at 121 in triage. ED Review of Systems ROS: Stated complaint: MIDDLE FINGER INFECTION Other details as noted in HPI Comment: All other systems reviewed and negative Constitutional: chills Eyes: denies: eye pain, eye discharge, vision change ENT: denies: ear pain, throat pain Respiratory: denies: cough, shortness of breath, wheezing ED Past Medical Hx - Past Medical History Hx Arthritis: Yes Additional medical history: G.I bleed, ulcer - Surgical History Additional Surgical History: hx of abd surgery for ulcer - Social History Smoking Status: Current Some Day Smoker Substance Use Type: None - Medications Home Medications: Home Medications Medication Instructions Recorded Confirmed Last Taken Type Celecoxib 200 mg PO BID 10/29/17 04/15/18 04/15/18 History predniSONE 10 mg PO BID 10/29/17 04/15/18 04/15/18 History Ondansetron [Zofran Odt] 4 mg PO Q8HR PRN #15 tab.rapdis 04/16/18 Unknown Rx traMADoL [Ultram 50 MG tab] 50 mg PO Q6HR PRN #20 tablet 04/16/18 Unknown Rx Acetaminophen/Codeine [Tylenol 1 tab PO Q6H PRN #12 tab 04/18/19 Unknown Rx /Codeine # 3 tab] Clindamycin [Clindamycin CAP] 300 mg PO Q8HR #60 capsule 04/18/19 Unknown Rx Ibuprofen [Motrin] 600 mg PO Q8H PRN #30 tablet 04/18/19 Unknown Rx Mupirocin [Bactroban 2% OINT] 1 applic TP TID #1 tube 04/18/19 Unknown Rx Ondansetron [Zofran Odt] 4 mg PO Q6HR PRN #20 tab.rapdis 04/18/19 Unknown Rx Sulfamethoxazole/Trimethoprim 1 each PO Q12H #20 tablet 04/18/19 Unknown Rx [Bactrim DS TAB] Clindamycin [Clindamycin CAP] 450 mg PO Q8HR 7 Days #63 capsule 05/26/20 Unknown Rx Neomycin/Bacitracin/Polymyxinb 1 applicatio TP BID #14 oint...g. 05/26/20 Unknown Rx [Triple Antibiotic Ointment] traMADoL [Ultram 50 MG tab] 50 mg PO Q6HR PRN #10 tablet 05/26/20 Unknown Rx Upper Extremity Exam - Exam General: Vital signs noted. No distress. Alert and acting appropriately. Shoulder Exam: Yes Normal Range of Motion in Shoulder, No Shoulder Tenderness, No Clavicle Tenderness, No Shoulder Deformity, No AC Joint Tenderness Arm Exam: No Arm/Humerus Tenderness, No Arm Deformity Elbow: No Elbow Tenderness, No Normal Range of Motion in Elbow, No Elbow Deformity Forearm: No Forearm Tenderness, No Forearm Deformity, No Pain with Pronation, No Pain with Supination Wrist: Yes Normal ROM in Wrist, No Wrist Tenderness, No Wrist Deformity, No Snuffbox Tenderness, No Pain with Axial Thumb Compression Hand: Yes Hand Tenderness, Yes Digit Tenderness, No Hand Deformity, No Normal ROM in Digit(s) (Right middle finger swollen tenderness discharge from around the nail not able to flex distal), No Digit(s) Deformity, No Tendon Dysfunction CMS Exam: Yes Broken Skin, Yes Normal Distal Pulses, Yes Normal Capillary Refill, Yes Normal Distal Sensation ED Course Vital Signs 06/07/20 17:45 Temperature 99.1 F Pulse Rate 121 H Respiratory 20 Rate Blood Pressure 167/99 O2 Sat by Pulse 98 Oximetry ED Medical Decision Making - Lab Data Result diagrams: 06/07/20 19:23 06/07/20 19:23 - Radiology Data Radiology results: report reviewed [facility] [address] [place] [address] XRay Report Signed Patient: KALIN MEZA MR#: [id number] : 1955 Acct:[id number] Age/Sex: 64 / M ADM Date: 06/07/20 Loc: ED Attending Dr: Ordering Physician: SOWMYA PERSON Date of Service: 06/07/20 Procedure(s): XR finger(s) 2+V RT Accession Number(s): [id number] cc: SOWMYA PERSON Fluoro Time In Minutes: Right hand 3 views INDICATION: Middle finger pain FINDINGS: Diffuse swelling seen throughout the long finger phalanx. Diffuse irregularity with bony destructive change of the distal tuft of the long finger. Findings concerning for osteomyelitis with bony destructive change. No history of injury. Degenerative change in the index finger MCP joint. Signer Name: Chuck Samaniego MD Signed: 06/07/2020 7:47 PM Workstation Name: [id number] Transcribed By: CW Dictated By: TORRI SAMANIEGO MD Electronically Authenticated By: TORRI SAMANIEGO MD Signed Date/Time: 06/07/201946 DD/ 45 TD/TT: Print Cancel - Medical Decision Making 64-year-old -[place]oven[place] male presents to the emergency room for right hand middle finger swelling discharge around the nail. Patient was here back in 05/26/2020 at that time he had IV clindamycin. Patient was discharged on clindamycin steroids and bacitracin ointment. Patient failed to follow-up with orthopedics. Patient presents now with worsening symptoms states he is having difficulty bending his finger swelling has doubled in pain is a 10 out of 10. Patient does have a history of rheumatoid arthritis. He does take steroids on and Celebrex on a daily basis. Patient denies any diabetes no hypertension. It was noted that patient had a low-grade fever of 99.1 and tachycardic at 121 in triage. X-ray of right finger mid has been ordered, CBC CMP has been ordered. X-ray return shows concern for osteomyelitis of the right middle distal finger. Elevated white count of 20.[address] Barnes she recommends vancomycin and Ancef IV. IV normal saline morphine 4 mg IV Zofran 4 mg IV. Spoke to attending regarding patient's case states admit him put bridge orders to [facility]. Critical care attestation.: If time is entered above; I have spent that time in minutes in the direct care of this critically ill patient, excluding procedure time. ED Disposition Clinical Impression: Osteomyelitis of finger of right hand Disposition: DC OP ADMIT IP TO THIS HOSP Is pt being admited?: Yes Does the pt Need Aspirin: Yes Condition: Stable
[2020-06-07] MEDS ORDERED: traMADol 50 MG TAB PO ONE (19:20)
[2020-06-07 19:40] LABS: Hematocrit 41.7 % (35.5-45.6); Hemoglobin 13.9 gm/dl (11.8-15.2); Mean Corpuscular HGB Conc 33 % (32-34); Mean Corpuscular Volume 96 fl (84-94); Platelet Count 288 K/mm3 (140-440); Red Blood Count 4.35 M/mm3 (3.65-5.03); Red Cell Distribution Width 14.2 % (13.2-15.2)
--- NOTE | 2020-06-07 19:51 | XRay Report ---
Right hand 3 views INDICATION: Middle finger pain FINDINGS: Diffuse swelling seen throughout the long finger phalanx. Diffuse irregularity with bony de structive change of the distal tuft of the long finger. Findings concerning for osteomyelitis with amy ny destructive change. No history of injury. Degenerative change in the index finger MCP joint. Signer Name: Chuck Samaniego MD Signed: 06/07/2020 7:47 PM Workstation Name: [id number]
[2020-06-07 19:58] LABS: BUN/Creatinine Ratio 17; Blood Urea Nitrogen 19 mg/dL (9-20); Calcium 9.3 mg/dL (8.4-10.2); Hemolysis Index 50
[2020-06-07 20:36] LABS: Total Cells Counted 100
[2020-06-07 20:43] LABS: Platelet Estimate Consistent w Auto; RBC Morphology Normal
[2020-06-07] MEDS ORDERED: VANCOMYCIN/NS 1 GM/250 ML 1 GM/250 ML BAG IV ONE (20:46)
[2020-06-07] MEDS ORDERED: ceFAZolin/NS 1 GM/50 ML 1 GM/50 ML BAG IV ONE (20:46)
[2020-06-07] MEDS ORDERED: ONDANSETRON 4 MG/2 ML INJ IV ONE (20:49)
[2020-06-07] MEDS ORDERED: MORPHINE 4 MG/1 ML INJ IV ONE (20:49)
[2020-06-07] MEDS ORDERED: ACETAMINOPHEN 325 MG TAB PO PRN (22:01)
[2020-06-07] MEDS ORDERED: MAGNESIUM HYDROXIDE (MOM) ORAL LIQD UDC PO PRN (22:01)
[2020-06-07] MEDS ORDERED: ONDANSETRON 4 MG/2 ML INJ IV PRN (22:01)
--- NOTE | 2020-06-07 22:09 | History and Physical Report ---
History of Present Illness Date of examination: 06/07/20 Date of admission: 06/07/2020 Chief complaint: Right middle Finger Pain History of present illness: 34-year-old -[place] male presents to the emergency room today complaining of pain in the right middle finger. Patient was seen here in June 03, 2020 when he presented with right middle finger swelling and discharge around the nailbed. He was discharged on clindamycin, bacitracin ointment and steroids. Patient refused to follow-up with orthopedics as recommended. Returns today complaining of worsening pain in swelling of the right middle finger. Patient denies any recent trauma. Denies any chest pain or shortness of breath, no nausea vomiting, no headache or dizziness. He has however had some low-grade fever of about 99.1 and upon arrival in the emergency room was tachycardic with a heart rate of in the 120s. Work-up in the emergency room today including x-ray of the right hand reveals: Diffuse swelling seen throughout the long finger phalanx. Diffuse irregularity with bony destructive change of the distal tuft of the long finger. Findings concerning for osteomyelitis Past History Past Medical History: arthritis (Rheumatic Arthritis), other (GI bleed from Ulcer) Past Surgical History: Other (Abdominal Surgery for Ulcer.) Social history: smoking (Current daily smoker) Family history: no significant family history Medications and Allergies Allergies Allergy/AdvReac Type Severity Reaction Status Date / Time No Known Drug Allergies Allergy Unknown Verified 06/07/20 17:48 Home Medications Medication Instructions Recorded Confirmed Last Taken Type Celecoxib 200 mg PO BID 10/29/17 04/15/18 04/15/18 History predniSONE 10 mg PO BID 10/29/17 04/15/18 04/15/18 History Ondansetron [Zofran Odt] 4 mg PO Q8HR PRN #15 tab.rapdis 04/16/18 Unknown Rx traMADoL [Ultram 50 MG tab] 50 mg PO Q6HR PRN #20 tablet 04/16/18 Unknown Rx Acetaminophen/Codeine [Tylenol 1 tab PO Q6H PRN #12 tab 04/18/19 Unknown Rx /Codeine # 3 tab] Clindamycin [Clindamycin CAP] 300 mg PO Q8HR #60 capsule 04/18/19 Unknown Rx Ibuprofen [Motrin] 600 mg PO Q8H PRN #30 tablet 04/18/19 Unknown Rx Mupirocin [Bactroban 2% OINT] 1 applic TP TID #1 tube 04/18/19 Unknown Rx Ondansetron [Zofran Odt] 4 mg PO Q6HR PRN #20 tab.rapdis 04/18/19 Unknown Rx Sulfamethoxazole/Trimethoprim 1 each PO Q12H #20 tablet 04/18/19 Unknown Rx [Bactrim DS TAB] Clindamycin [Clindamycin CAP] 450 mg PO Q8HR 7 Days #63 capsule 05/26/20 Unknown Rx Neomycin/Bacitracin/Polymyxinb 1 applicatio TP BID #14 oint...g. 05/26/20 Unknown Rx [Triple Antibiotic Ointment] traMADoL [Ultram 50 MG tab] 50 mg PO Q6HR PRN #10 tablet 05/26/20 Unknown Rx Active Meds: Active Medications Acetaminophen (Acetaminophen 325 Mg Tab) 650 mg PO Q4H PRN PRN Reason: Pain MILD(1-3)/Fever >100.5/HILL Heparin Sodium (Porcine) (Heparin 5,000 Unit/1 Ml Vial) 5,000 unit SUB-Q Q8HR [facility] Vancomycin HCl (Vancomycin/Ns 1 Gm/250 Ml) 1 gm in 250 mls @ 167.007 mls/hr IV ONCE ONE; Protocol Stop: 06/07/20 22:15 Sodium Chloride (Nacl 0.9% 1000 Ml) 1,000 mls @ 125 mls/hr IV DIRECT [facility]ANDR[facility] Cefepime HCl (Cefepime/Ns 2 Gm/100 Ml) 2 gm in 100 mls @ 200 mls/hr IV Q8H LEAN[facility]O; Protocol Magnesium Hydroxide (Magnesium Hydroxide (Mom) Oral Liqd Udc) 30 ml PO Q4H PRN PRN Reason: Constipation Morphine Sulfate (Morphine 2 Mg/1 Ml Inj) 2 mg IV Q4H PRN PRN Reason: Pain, Moderate (4-6) Ondansetron HCl (Ondansetron 4 Mg/2 Ml Inj) 4 mg IV Q8H PRN PRN Reason: Nausea And Vomiting Sodium Chloride (Sodium Chloride 0.9% 10 Ml Flush Syringe) 10 ml IV BID LEANDR[facility] Sodium Chloride (Sodium Chloride 0.9% 10 Ml Flush Syringe) 10 ml IV PRN PRN PRN Reason: LINE FLUSH Review of Systems Constitutional: no fever, no chills Ears, nose, mouth and throat: no nasal congestion, no sore throat Cardiovascular: no chest pain, no palpitations Respiratory: no cough, no shortness of breath Gastrointestinal: no abdominal pain, no nausea, no vomiting, no diarrhea Genitourinary Male: no dysuria, no hematuria, no flank pain, no nocturia Musculoskeletal: other (Pain right middle finger), no neck pain, no low back pain Integumentary: no rash, no pruritis Neurological: no headaches, no confusion Psychiatric: no anxiety, no depression, no confusion Endocrine: no polyphagia, no polydipsia, no polyuria, no nocturia Exam - Constitutional Vitals: Temp Pulse Resp BP Pulse Ox 98.5 F 108 H 20 124/95 96 06/07/20 22:00 06/07/20 22:00 06/07/20 22:03 06/07/20 22:00 06/07/20 22:03 General appearance: Present: no acute distress, well-nourished - EENT Eyes: Present: PERRL, EOM intact. Absent: scleral icterus ENT: hearing intact, clear oral mucosa, dentition normal - Neck Neck: Present: supple, normal ROM - Respiratory Respiratory effort: normal Respiratory: bilateral: CTA - Cardiovascular Rhythm: regular Heart Sounds: Present: S1 & S2. Absent: gallop, systolic murmur, diastolic murmur, rub, click - Extremities Extremities: no ischemia, pulses intact, pulses symmetrical, No edema, normal temperature, normal color, Full ROM Extremity abnormal: ulceration (Right middle finger swelling with minimal pusli ke discharge from the nailbed, tender to touch with limited range of motion.) Peripheral Pulses: within normal limits - Abdominal General gastrointestinal: Present: soft, non-tender, non-distended, normal bowel sounds. Absent: mass - Integumentary Integumentary: Present: clear, warm, dry, normal turgor. Absent: rash - Musculoskeletal Musculoskeletal: strength equal bilaterally - Psychiatric Psychiatric: appropriate mood/affect, intact judgment & insight, memory intact, cooperative - Neurologic Neurologic: CNII-XII intact, no focal deficits, moves all extremities Results - Labs CBC & Chem 7: 06/07/20 19:23 06/07/20 19:23 Labs: Abnormal lab results 06/07/20 06/07/20 Range/Units 19:23 19:23 WBC 20.1 H (4.5-11.0) K/mm3 MCV 96 H (84-94) fl Seg Neuts % (Manual) 78.0 H (40.0-70.0) % Lymphocytes % (Manual) 12.0 L (13.4-35.0) % Monocytes % (Manual) 9.0 H (0.0-7.3) % Seg Neutrophils # Man 15.7 H (1.8-7.7) K/mm3 Monocytes # (Manual) 1.8 H (0.0-0.8) K/mm3 Sodium 136 L (137-145) mmol/L Glucose 111 H (75-100) mg/dL Assessment and Plan - Patient Problems (1) Osteomyelitis of finger of right hand Current Visit: Yes Status: Acute Plan to address problem: Patient placed on empiric IV antibiotics. We will place consult to orthopedic surgery and infectious disease for evaluation and recommendation. (2) Leukocytosis Current Visit: No Status: Acute Qualifiers: Leukocytosis type: unspecified Qualified Code(s): D72.829 - Elevated white blood cell count, unspecified Plan to address problem: This is secondary to the underlying right middle finger infection. We will monitor CBC. (3) DVT prophylaxis Current Visit: Yes Status: Acute Plan to address problem: Patient placed on sequential compression device. (4) Full code status Current Visit: Yes Status: Acute Plan to address problem: Patient is full code.
[2020-06-07] MEDS: MORPHINE 2 MG/1 ML INJ IV PRN (23:11)
[2020-06-08] MEDS: CEFEPIME/NS 2 GM/100 ML 2 GM/100 ML BAG IV SCH ×4 (01:10→21:30)
[2020-06-08] MEDS ORDERED: HYDROmorphone 1 MG/1 ML INJ IV ONE (01:58)
[2020-06-08] MEDS: HEPARIN 5,000 UNIT/1 ML VIAL SUB-Q SCH ×3 (05:40→21:29)
[2020-06-08 08:45] LABS: Basophils # (Auto) 0.1 K/mm3 (0.0-0.1); Basophils % (Auto) 0.4 % (0.0-1.8); Eosinophils # (Auto) 0.1 K/mm3 (0.0-0.4); Eosinophils % (Auto) 0.7 % (0.0-4.3); Hemoglobin 12.6 gm/dl (11.8-15.2); Lymphocytes # (Auto) 2.6 K/mm3 (1.2-5.4); Lymphocytes % (Auto) 13.8 % (13.4-35.0); Mean Corpuscular HGB Conc 32 % (32-34); Mean Corpuscular Volume 95 fl (84-94); Monocytes % (Auto) 10.7 % (0.0-7.3); Platelet Count 287 K/mm3 (140-440); Red Blood Count 4.13 M/mm3 (3.65-5.03); Red Cell Distribution Width 13.8 % (13.2-15.2)
[2020-06-08 09:08] LABS: INR 0.94 (0.87-1.13)
[2020-06-08 09:10] LABS: BUN/Creatinine Ratio 18; Blood Urea Nitrogen 16 mg/dL (9-20); Calcium 8.5 mg/dL (8.4-10.2); Hemolysis Index 5
[2020-06-08] MEDS: MORPHINE 2 MG/1 ML INJ IV PRN (09:31)
[2020-06-08] MEDS: SODIUM CHLORIDE 0.9% 1000 ML 1,000 ML IV SCH (09:31)
[2020-06-08] MEDS ORDERED: traMADol 50 MG TAB PO PRN (12:01)
--- NOTE | 2020-06-08 14:05 | Consultation ---
History of Present Illness - Reason for Consult Consult date: 06/08/20 osteomyelitis of finger Requesting physician: MAURICE BYERS - History of Present Illness The patient is a 64-year-old male with rheumatoid arthritis for which he takes celecoxib and prednisone twice daily for the last several years was admitted to the hospital with worsening pain and swelling of his right middle finger. This has been going on for a month and has been getting worse. He had been seen in the ED and was given an orthopedic follow-up but unfortunately did not follow-up with orthopedics. X-ray here shows findings concerning for possible osteomyelitis. Otherwise afebrile. Denies any smoking. No history of diabetes. Denies any obvious trauma skin/abrasion to the finger. Review of Systems: General: no fevers,chills or rigors HEENT: no new visual disturbance Respiratory: No cough, sputum, hemoptysis or shortness of breath Cardiovascular: No chest pain, syncope Gastrointestinal: No nausea, vomiting or diarrhea Genitourinary: No dysuria or hematuria Musculoskeletal: No new or worsening neck pain or back pain Neurologic: No headaches, seizures Hematologic: No easy bruising or bleeding Endocrine: No night sweats or acute weight loss Skin: negative for rash, jaundice Psychiatric: No suicidal or homicidal ideation Past History Past Medical History: arthritis (Rheumatic Arthritis), other (GI bleed from Ulcer) Past Surgical History: Other (Abdominal Surgery for Ulcer.) Social history: smoking (Current daily smoker) Family history: no significant family history Medications and Allergies Allergies Allergy/AdvReac Type Severity Reaction Status Date / Time No Known Drug Allergies Allergy Unknown Verified 06/07/20 17:48 Home Medications Medication Instructions Recorded Confirmed Last Taken Type Celecoxib 200 mg PO BID 10/29/17 06/08/20 04/15/18 History predniSONE 10 mg PO BID 10/29/17 06/08/20 04/15/18 History traMADoL [Ultram 50 MG tab] 50 mg PO Q6HR PRN #10 tablet 05/26/20 06/08/20 Unknown Rx Etanercept [Enbrel Sureclick] 50 mg SQ QWEEK 06/08/20 06/08/20 Unknown History Hydroxychloroquine [Plaquenil] 200 mg PO BID 06/08/20 06/08/20 Unknown History Active Meds: Active Medications Acetaminophen (Acetaminophen 325 Mg Tab) 650 mg PO Q4H PRN PRN Reason: Pain MILD(1-3)/Fever >100.5/HILL Celecoxib (Celecoxib 200 Mg Cap) 200 mg PO BID [facility] Heparin Sodium (Porcine) (Heparin 5,000 Unit/1 Ml Vial) 5,000 unit SUB-Q Q8HR [facility] Last Admin: 06/08/20 05:40 Dose: 5,000 unit Documented by: Hydroxychloroquine Sulfate (Hydroxychloroquine 200 Mg Tab) 200 mg PO BID [facility] Sodium Chloride (Nacl 0.9% 1000 Ml) 1,000 mls @ 125 mls/hr IV DIRECT LEANDRO Last Admin: 06/08/20 09:31 Dose: 125 mls/hr Documented by: Cefepime HCl (Cefepime/Ns 2 Gm/100 Ml) 2 gm in 100 mls @ 200 mls/hr IV Q8HR [facility]; Protocol Last Admin: 06/08/20 05:40 Dose: 200 mls/hr Documented by: Magnesium Hydroxide (Magnesium Hydroxide (Mom) Oral Liqd Udc) 30 ml PO Q4H PRN PRN Reason: Constipation Miscellaneous Medication (Etanercept [Enbrel Sureclick]) 50 mg SQ QWEEK [facility] Morphine Sulfate (Morphine 2 Mg/1 Ml Inj) 2 mg IV Q4H PRN PRN Reason: Pain, Moderate (4-6) Last Admin: 06/08/20 09:31 Dose: 2 mg Documented by: Ondansetron HCl (Ondansetron 4 Mg/2 Ml Inj) 4 mg IV Q8H PRN PRN Reason: Nausea And Vomiting Prednisone (Prednisone 10 Mg Tab) 10 mg PO BID [facility] Sodium Chloride (Sodium Chloride 0.9% 10 Ml Flush Syringe) 10 ml IV BID [facility] Last Admin: 06/08/20 09:44 Dose: 10 ml Documented by: Sodium Chloride (Sodium Chloride 0.9% 10 Ml Flush Syringe) 10 ml IV PRN PRN PRN Reason: LINE FLUSH Tramadol HCl (Tramadol 50 Mg Tab) 50 mg PO Q6HR PRN PRN Reason: Pain , Severe (7-10) Physical Examination - Physical Exam Narrative exam: Physical Exam: Constitutional: Alert, cooperative. No acute distress Head, Ears, Nose: Normocephalic, atraumatic. External ears, nose normal Eyes: Conjunctivae/corneas clear. No icterus. No ptosis. Neck: Supple, no meningeal signs Cardiovascular: S1, S2 normal. Respiratory: Good air entry, clear to auscultation bilaterally GI: Soft, non-tender; bowel sounds normal. No peritoneal signs Musculoskeletal: Right middle finger with significant swelling, warmth and tenderness Skin: No rash or abscess Hem/Lymphatic: No palpable cervical or supraclavicular nodes. No lymphangitis Psych: Mood ok. Affect normal Neurological: Awake, alert, oriented. No gross abnormality - Constitutional Vitals: Vital Signs Temp Pulse Resp BP Pulse Ox 98.1 F 109 H 20 179/113 96 06/08/20 12:35 06/08/20 12:35 06/08/20 12:35 06/08/20 12:35 06/08/20 12:35 Temperature -Last 24 Hours Temperature 98.1 F Temperature 98.5 F Temperature 98.5 F Temperature 99.1 F Results - Labs CBC & Chem 7: 06/08/20 08:10 06/08/20 08:10 Labs: Abnormal lab results 06/07/20 06/07/20 06/08/20 Range/Units 19:23 19:23 08:10 WBC 20.1 H 18.7 H (4.5-11.0) K/mm3 MCV 96 H 95 H (84-94) fl [place] % (Auto) 10.7 H (0.0-7.3) % [place] # (Auto) 2.0 H (0.0-0.8) K/mm3 Seg Neutrophils % 74.4 H (40.0-70.0) % Seg Neuts % (Manual) 78.0 H (40.0-70.0) % Lymphocytes % (Manual) 12.0 L (13.4-35.0) % Monocytes % (Manual) 9.0 H (0.0-7.3) % Seg Neutrophils # 13.9 H (1.8-7.7) K/mm3 Seg Neutrophils # Man 15.7 H (1.8-7.7) K/mm3 Monocytes # (Manual) 1.8 H (0.0-0.8) K/mm3 Sodium 136 L (137-145) mmol/L Glucose 111 H (75-100) mg/dL Assessment and Plan Cultures: None A/P: 64-year-old male with rheumatoid arthritis with: #Right middle finger cellulitis with associated osteomyelitis: No trauma. Xray concerning for osteomyelitis. #Rheumatoid arthritis, immunocompromised host: Has been taking chronic steroids in addition to celecoxib. Recs: -Orthopedics consult, may need hand surgery evaluation -Empiric cefepime and vancomycin for now Dustin Frank MD, FACP [facility] ([facility] O: [phone] F: [phone]
[2020-06-08] MEDS: CELECOXIB 200 MG CAP PO SCH ×2 (14:26→21:29)
[2020-06-08] MEDS: HYDROXYCHLOROQUINE 200 MG TAB PO SCH ×2 (14:27→21:28)
[2020-06-08] MEDS: predniSONE 10 MG TAB PO SCH ×2 (14:32→21:28)
[2020-06-08] MEDS ORDERED: VANCOMYCIN 1,250 MG in SODIUM CHLORIDE 0.9% 500 ML 500 ML IV ONE (15:00)
[2020-06-08] MEDS ORDERED: VANCOMYCIN 1,250 MG in SODIUM CHLORIDE 0.9% 250ML 250 ML IV ONE (15:00)
[2020-06-08] MEDS ORDERED: VANCOMYCIN PHARMACY TO DOSE IV SCH (15:00)
--- NOTE | 2020-06-08 17:50 | Progress Note ---
Assessment and Plan (1) Osteomyelitis of finger of right hand Current Visit: Yes Status: Acute Plan to address problem: Patient placed on empiric IV antibiotics. We will place consult to orthopedic surgery and infectious disease for evaluation and recommendation. (2) Leukocytosis with sepsis, POA Current Visit: No Status: Acute Qualifiers: Leukocytosis type: unspecified Qualified Code(s): D72.829 - Elevated white blood cell count, unspecified Plan to address problem: This is secondary to the underlying right middle finger infection. We will monitor CBC and cont iv abx. (3) DVT prophylaxis Current Visit: Yes Status: Acute Plan to address problem: Patient placed on sequential compression device. (4) Full code status Current Visit: Yes Status: Acute Plan to address problem: Patient is full code. Daily clinical course: 06/08/20: Continue empiric antibiotics per ID recommendation, as needed pain management: Wait for orthopedic recommendation and evaluation Subjective Date of service: 06/08/20 Interval history: Patient seen and examined. Medical records and medication list reviewed. No acute event overnight noted by the RN. Patient denies any chest pain or difficulty breathing. Patient is tolerating diet. Complains of severe pain of the right middle Finger with extensive swelling Discussed plan of care at bedside with patient. Objective - Exam Narrative Exam: GENERAL: well-developed and well-nourished elderly -[place] male lying on bed appeared to be in no discomfort. HEENT: Normocephalic. Atraumatic. No conjunctival congestion or icterus. Patient has moist mucous membranes. NECK: Supple. Trachea midline. CHEST/LUNGS: Clear to auscultated bilaterally, breathing nonlabored. No wheezes crackles or rhonchi. HEART/CARDIOVASCULAR: Regular in rate and rhythm. S1 and S2 positive. ABDOMEN: Abdomen is soft, nontender. Patient has normal bowel sounds. SKIN: There is no rash. Warm and dry. NEURO: No focal motor deficit. Follows command. MUSCULOSKELETAL: Right middle finger with significant swelling, warmth and tenderness EXTRIMITY: No edema, no cyanosis or clubbing. PSYCH: Cooperative. - Constitutional Vitals: Vital Signs - 12hr 06/08/20 06/08/20 12:00 12:35 Temperature 98.1 F Pulse Rate 109 H Respiratory 20 Rate Blood Pressure 179/113 [Left] O2 Sat by Pulse 96 96 Oximetry - Labs CBC & Chem 7: 06/08/20 08:10 06/08/20 08:10 Labs: Abnormal lab results 06/07/20 06/07/20 06/08/20 Range/Units 19:23 19:23 08:10 WBC 20.1 H 18.7 H (4.5-11.0) K/mm3 MCV 96 H 95 H (84-94) fl [place] % (Auto) 10.7 H (0.0-7.3) % [place] # (Auto) 2.0 H (0.0-0.8) K/mm3 Seg Neutrophils % 74.4 H (40.0-70.0) % Seg Neuts % (Manual) 78.0 H (40.0-70.0) % Lymphocytes % (Manual) 12.0 L (13.4-35.0) % Monocytes % (Manual) 9.0 H (0.0-7.3) % Seg Neutrophils # 13.9 H (1.8-7.7) K/mm3 Seg Neutrophils # Man 15.7 H (1.8-7.7) K/mm3 Monocytes # (Manual) 1.8 H (0.0-0.8) K/mm3 Sodium 136 L (137-145) mmol/L Glucose 111 H (75-100) mg/dL
[2020-06-08] MEDS: oxyCODONE /ACETAMINOPHEN 5-325MG TAB PO PRN (21:28)
[2020-06-09] MEDS: VANCOMYCIN 1,250 MG in SODIUM CHLORIDE 0.9% 250ML 250 ML IV SCH ×2 (05:11→17:27)
[2020-06-09] MEDS: CEFEPIME/NS 2 GM/100 ML 2 GM/100 ML BAG IV SCH ×3 (05:11→21:00)
[2020-06-09] MEDS: HEPARIN 5,000 UNIT/1 ML VIAL SUB-Q SCH ×3 (05:12→21:02)
[2020-06-09] MEDS: oxyCODONE /ACETAMINOPHEN 5-325MG TAB PO PRN ×3 (06:28→20:36)
[2020-06-09] MEDS: predniSONE 10 MG TAB PO SCH ×2 (09:19→21:00)
[2020-06-09] MEDS: CELECOXIB 200 MG CAP PO SCH ×2 (09:19→21:01)
[2020-06-09] MEDS: HYDROXYCHLOROQUINE 200 MG TAB PO SCH ×2 (09:21→21:00)
[2020-06-09] MEDS: SODIUM CHLORIDE 0.9% 1000 ML 1,000 ML IV SCH (11:23)
--- NOTE | 2020-06-09 13:29 | Progress Note ---
Assessment and Plan Cultures: 06/08/2020 blood culture in process A/P: 64-year-old male with rheumatoid arthritis with: #Right middle finger cellulitis with associated osteomyelitis: No trauma. Xray concerning for osteomyelitis. #Rheumatoid arthritis, immunocompromised host: Has been taking chronic steroids in addition to celecoxib. Recs: -Orthopedics consult, may need hand surgery evaluation -continue empiric cefepime and vancomycin for now -MRI of hand ordered Dustin Frank MD, FACP [facility] ([facility] O: [phone] F: [phone] Subjective Date of service: 06/09/20 Interval history: Swelling and pain in finger continue. No fever or chills. No nausea, vomiting or diarrhea. No rash. Objective - Exam Narrative Exam: Physical Exam: Constitutional: Alert, cooperative. No acute distress Head, Ears, Nose: Normocephalic, atraumatic. External ears, nose normal Eyes: Conjunctivae/corneas clear. No icterus. No ptosis. Neck: Supple, no meningeal signs Cardiovascular: S1, S2 normal. Respiratory: Good air entry, clear to auscultation bilaterally GI: Soft, non-tender; bowel sounds normal. No peritoneal signs Musculoskeletal: Right middle finger with significant swelling, warmth and tenderness Skin: No rash or abscess Hem/Lymphatic: No palpable cervical or supraclavicular nodes. No lymphangitis Psych: Mood ok. Affect normal Neurological: Awake, alert, oriented. No gross abnormality - Constitutional Vitals: Vital Signs Temp Pulse Resp BP Pulse Ox 98.2 F 107 H 18 138/91 97 06/09/20 04:16 06/09/20 04:16 06/09/20 06:28 06/09/20 04:16 06/09/20 04:16 Temperature -Last 24 Hours Temperature 98.2 F Temperature 98.6 F - Labs CBC & Chem 7: 06/08/20 08:10 06/08/20 08:10
--- NOTE | 2020-06-09 14:21 | Progress Note ---
Assessment and Plan (1) Osteomyelitis of finger of right hand Current Visit: Yes Status: Acute Plan to address problem: Patient placed on empiric IV antibiotics. We will place consult to orthopedic surgery and infectious disease for evaluation and recommendation. (2) Leukocytosis with sepsis, POA Current Visit: No Status: Acute Qualifiers: Leukocytosis type: unspecified Qualified Code(s): D72.829 - Elevated white blood cell count, unspecified Plan to address problem: This is secondary to the underlying right middle finger infection. We will monitor CBC and cont iv abx. (3) DVT prophylaxis Current Visit: Yes Status: Acute Plan to address problem: Patient placed on sequential compression device. (4) Full code status Current Visit: Yes Status: Acute Plan to address problem: Patient is full code. Daily clinical course: 06/08/20: Continue empiric antibiotics per ID recommendation, as needed pain management: Wait for orthopedic recommendation and evaluation 06/09: Continue empiric antibiotics, await for orthopedics evaluation, ordered for right hand MRI Subjective Date of service: 06/09/20 Interval history: Patient seen and examined. Medical records and medication list reviewed. No acute event overnight noted by the RN. Patient denies any chest pain or difficulty breathing. Patient is tolerating diet. Complains of severe pain of the right middle Finger with extensive swelling Discussed plan of care at bedside with patient. Objective - Exam Narrative Exam: GENERAL: well-developed and well-nourished elderly -[place] male lying on bed appeared to be in no discomfort. HEENT: Normocephalic. Atraumatic. No conjunctival congestion or icterus. Yary ent has moist mucous membranes. NECK: Supple. Trachea midline. CHEST/LUNGS: Clear to auscultated bilaterally, breathing nonlabored. No wheezes crackles or rhonchi. HEART/CARDIOVASCULAR: Regular in rate and rhythm. S1 and S2 positive. ABDOMEN: Abdomen is soft, nontender. Patient has normal bowel sounds. SKIN: There is no rash. Warm and dry. NEURO: No focal motor deficit. Follows command. MUSCULOSKELETAL: Right middle finger with significant swelling, warmth and tend erness EXTRIMITY: No edema, no cyanosis or clubbing. PSYCH: Cooperative. - Constitutional Vitals: Vital Signs - 12hr 06/09/20 06/09/20 04:16 06:28 Temperature 98.2 F Pulse Rate 107 H Respiratory 18 18 Rate Blood Pressure 138/91 O2 Sat by Pulse 97 Oximetry - Labs CBC & Chem 7: 06/08/20 08:10 06/08/20 08:10
--- NOTE | 2020-06-09 15:31 | Magnetic Resonance Report ---
MRI right hand without contrast INDICATION: Osteomyelitis FINDINGS: There is diffuse soft tissue swelling within the long finger soft tissues extending from th e PIP joint and distally. Large amount of fluid and edema is noted. There is low T1 signal with bony destructive change within the distal phalanx of the long finger. There may be some mild edema within the distal aspect of the middle phalanx as well Degenerative change in the index finger MCP joint. Remaining pancreas appear normal in signal charact eristic. Degenerative change in the middle finger MCP joint. Flexor tendons and extensor tendons are intact. IMPRESSION: 1. Low T1 increased T2 signal within the distal phalanx of the third digit consistent with osteomyeli tis with bony destructive change. There is also some bone marrow edema suggestive the distal aspect o f the proximal phalanx at the level of the DIP joint. Early osteophyte is this area could have this a ppearance. 2. Moderate to large amount of fluid within soft tissues extending from the PIP joint into the distal third finger. Findings consistent with impaction and inflammation of the soft tissues with associate d osteomyelitis. Patient refused contrast for further evaluation. Signer Name: Chuck Samaniego MD Signed: 06/09/2020 3:27 PM Workstation Name: [id number]
[2020-06-10] MEDS: SODIUM CHLORIDE 0.9% 1000 ML 1,000 ML IV SCH ×3 (04:40→21:47)
[2020-06-10] MEDS: oxyCODONE /ACETAMINOPHEN 5-325MG TAB PO PRN ×3 (05:13→19:39)
[2020-06-10] MEDS: HEPARIN 5,000 UNIT/1 ML VIAL SUB-Q SCH ×3 (05:13→21:47)
[2020-06-10] MEDS: CEFEPIME/NS 2 GM/100 ML 2 GM/100 ML BAG IV SCH ×3 (05:13→21:47)
[2020-06-10] MEDS: MORPHINE 2 MG/1 ML INJ IV PRN ×3 (07:45→21:48)
[2020-06-10 08:28] LABS: BUN/Creatinine Ratio 14; Blood Urea Nitrogen 11 mg/dL (9-20); Calcium 8.4 mg/dL (8.4-10.2); Hemolysis Index 30
[2020-06-10] MEDS: predniSONE 10 MG TAB PO SCH ×2 (09:50→21:48)
[2020-06-10] MEDS: HYDROXYCHLOROQUINE 200 MG TAB PO SCH ×2 (09:51→21:48)
[2020-06-10] MEDS: CELECOXIB 200 MG CAP PO SCH ×2 (09:51→21:48)
[2020-06-10] MEDS: VANCOMYCIN 1,250 MG in SODIUM CHLORIDE 0.9% 250ML 250 ML IV SCH ×2 (09:51→19:38)
--- NOTE | 2020-06-10 09:53 | Consultation ---
History of Present Illness - [facility] Consult date: 06/10/20 Consult reason: joint pain History of present illness: 64 y/o male with c/o right 3rd finger pain and swelling for past 1 month, denies hx of injury, DM or previous episodes, + RA... Past History Past Medical History: arthritis (Rheumatic Arthritis), other (GI bleed from Ulcer) Past Surgical History: Other (Abdominal Surgery for Ulcer.) Social history: smoking (Current daily smoker) Family history: no significant family history Medications and Allergies Allergies Allergy/AdvReac Type Severity Reaction Status Date / Time No Known Drug Allergies Allergy Unknown Verified 06/07/20 17:48 Home Medications Medication Instructions Recorded Confirmed Last Taken Type Celecoxib 200 mg PO BID 10/29/17 06/08/20 04/15/18 History predniSONE 10 mg PO BID 10/29/17 06/08/20 04/15/18 History traMADoL [Ultram 50 MG tab] 50 mg PO Q6HR PRN #10 tablet 05/26/20 06/08/20 Unknown Rx Etanercept [Enbrel Sureclick] 50 mg SQ QWEEK 06/08/20 06/08/20 Unknown History Hydroxychloroquine [Plaquenil] 200 mg PO BID 06/08/20 06/08/20 Unknown History Active Meds: Active Medications Acetaminophen (Acetaminophen 325 Mg Tab) 650 mg PO Q4H PRN PRN Reason: Pain MILD(1-3)/Fever >100.5/HILL Celecoxib (Celecoxib 200 Mg Cap) 200 mg PO BID [facility] Last Admin: 06/09/20 21:01 Dose: 200 mg Documented by: Heparin Sodium (Porcine) (Heparin 5,000 Unit/1 Ml Vial) 5,000 unit SUB-Q Q8HR [facility] Last Admin: 06/10/20 05:13 Dose: 5,000 unit Documented by: Hydroxychloroquine Sulfate (Hydroxychloroquine 200 Mg Tab) 200 mg PO BID [facility] Last Admin: 06/09/20 21:00 Dose: 200 mg Documented by: Sodium Chloride (Nacl 0.9% 1000 Ml) 1,000 mls @ 125 mls/hr IV DIRECT [facility] Last Admin: 06/10/20 04:40 Dose: 125 mls/hr Documented by: Cefepime HCl (Cefepime/Ns 2 Gm/100 Ml) 2 gm in 100 mls @ 200 mls/hr IV Q8HR [facility]; Protocol Last Admin: 06/10/20 05:13 Dose: 200 mls/hr Documented by: Vancomycin HCl 1,250 mg/ (Sodium Chloride) 275 mls @ 166.667 mls/hr IV Q12H [facility] Last Admin: 06/09/20 17:27 Dose: 166.667 mls/hr Documented by: Magnesium Hydroxide (Magnesium Hydroxide (Mom) Oral Liqd Udc) 30 ml PO Q4H PRN PRN Reason: Constipation Miscellaneous Medication (Etanercept [Enbrel Sureclick]) 50 mg SQ QWEEK [facility] Morphine Sulfate (Morphine 2 Mg/1 Ml Inj) 3 mg IV Q4H PRN PRN Reason: Pain , Severe (7-10) Last Admin: 06/10/20 07:45 Dose: 3 mg Documented by: Ondansetron HCl (Ondansetron 4 Mg/2 Ml Inj) 4 mg IV Q8H PRN PRN Reason: Nausea And Vomiting Oxycodone/Acetaminophen (Oxycodone /Acetaminophen 5-325mg Tab) 1 tab PO Q6H PRN PRN Reason: Pain, Moderate (4-6) Last Admin: 06/10/20 05:13 Dose: 1 tab Documented by: Prednisone (Prednisone 10 Mg Tab) 10 mg PO BID [facility] Last Admin: 06/09/20 21:00 Dose: 10 mg Documented by: Sodium Chloride (Sodium Chloride 0.9% 10 Ml Flush Syringe) 10 ml IV BID [facility] Last Admin: 06/09/20 21:03 Dose: 10 ml Documented by: Sodium Chloride (Sodium Chloride 0.9% 10 Ml Flush Syringe) 10 ml IV PRN PRN PRN Reason: LINE FLUSH Physical Examination - Physical exam Narrative exam: Right hand - 3rd digit - sausage-like swelling, dec active ROM at PIP, and DIP jts, no obvious swelling or tender in palm Eyes: PERRL ENT: Positive: clear oral mucosa Respiratory effort: normal Respiratory: bilateral: CTA Rhythm: regular Heart Sounds: Positive: S1 & S2 General gastrointestinal: Positive: soft, non-tender, non-distended, normal bowel sounds Integumentary: clear, warm, dry Neurologic: Positive: CNII-XII intact, moves all extremities, gait normal. Negative: focal deficits - Cervical Spine Neck pain: none Tenderness with palpation: none Full ROM: yes ROM: flexion: normal ROM: extension: normal ROM: rotation right: normal ROM: rotation left: normal ROM: lateral flexion right: normal ROM: lateral flexion left: normal - Lumbar Spine Back pain: none Tenderness with palpation: none Appearance: normal Full ROM: yes ROM: flexion: normal ROM: extension: normal ROM: rotation right: normal ROM: rotation left: normal ROM: lateral flexion right: normal ROM: lateral flexion left: normal Assessment and Plan Infected right 3rd finger- deep tendon space Recommend I&D right hand, continue IVAB and observation
--- NOTE | 2020-06-10 13:06 | Progress Note ---
Assessment and Plan (1) Osteomyelitis of finger of right hand Current Visit: Yes Status: Acute Plan to address problem: Patient placed on empiric IV antibiotics. We will place consult to orthopedic surgery and infectious disease for evaluation and recommendation. (2) Leukocytosis with sepsis, POA Current Visit: No Status: Acute Qualifiers: Leukocytosis type: unspecified Qualified Code(s): D72.829 - Elevated white blood cell count, unspecified Plan to address problem: This is secondary to the underlying right middle finger infection. We will monitor CBC and cont iv abx. (3) DVT prophylaxis Current Visit: Yes Status: Acute Plan to address problem: Patient placed on sequential compression device. (4) Full code status Current Visit: Yes Status: Acute Plan to address problem: Patient is full code. Daily clinical course: 06/08/20: Continue empiric antibiotics per ID recommendation, as needed pain management: Wait for orthopedic recommendation and evaluation 06/09: Continue empiric antibiotics, await for orthopedics evaluation, ordered for right hand MRI 06/10; planned for I and D tomorrow, continue empiric antibiotic, follow clinically. Patient might need long-term IV antibiotics, will follow ID recommendation Subjective Date of service: 06/10/20 Interval history: Patient seen and examined. Medical records and medication list reviewed. No acute event overnight noted by the RN. Patient denies any chest pain or difficulty breathing. Patient is tolerating diet. Complains of severe pain of the right middle Finger with extensive swelling Discussed plan of care at bedside with patient. Objective - Exam Narrative Exam: GENERAL: well-developed and well-nourished elderly -[place] male lying on bed appeared to be in no discomfort. HEENT: Normocephalic. Atraumatic. No conjunctival congestion or icterus. Patient has moist mucous membranes. NECK: Supple. Trachea midline. CHEST/LUNGS: Clear to auscultated bilaterally, breathing nonlabored. No wheezes crackles or rhonchi. HEART/CARDIOVASCULAR: Regular in rate and rhythm. S1 and S2 positive. ABDOMEN: Abdomen is soft, nontender. Patient has normal bowel sounds. SKIN: There is no rash. Warm and dry. NEURO: No focal motor deficit. Follows command. MUSCULOSKELETAL: Right middle finger with significant swelling, warmth and tenderness EXTRIMITY: No edema, no cyanosis or clubbing. PSYCH: Cooperative. - Constitutional Vitals: Vital Signs - 12hr 06/10/20 06/10/20 03:40 05:13 Temperature 98.0 F Pulse Rate 107 H Respiratory 20 18 Rate Blood Pressure 147/101 O2 Sat by Pulse 98 Oximetry - Labs CBC & Chem 7: 06/08/20 08:10 06/10/20 07:23 Labs: Abnormal lab results 06/09/20 Range/Units 08:10 C-Reactive Protein 2.60 H (0.00-1.30) mg/dL
--- NOTE | 2020-06-10 13:38 | Progress Note ---
Assessment and Plan Cultures: 06/08/2020 blood culture: no growth A/P: 64-year-old male with rheumatoid arthritis with: #Right middle finger cellulitis with associated osteomyelitis: No trauma. Xray and MRI concerning for osteomyelitis. #Rheumatoid arthritis, immunocompromised host: Has been taking chronic steroids in addition to celecoxib. He has not taken Enbrel yet, recently was prescribed to him. Recs: -awaiting I&D by orthopedics, given his immunocompromised status, please send OR tissue/pus culture for bacteria and fungi -continue empiric IV cefepime and vancomycin for now Dustin Frank MD, FACP [facility] O: [phone] F: [phone] Subjective Date of service: 06/10/20 Interval history: Swelling and pain in finger continue. No fever or chills. No nausea, vomiting or diarrhea. No rash. Was seen by ortho yesterday. Objective - Exam Narrative Exam: Physical Exam: Constitutional: Alert, cooperative. No acute distress Head, Ears, Nose: Normocephalic, atraumatic. External ears, nose normal Eyes: Conjunctivae/corneas clear. No icterus. No ptosis. Neck: Supple, no meningeal signs Cardiovascular: S1, S2 normal. Respiratory: Good air entry, clear to auscultation bilaterally GI: Soft, non-tender; bowel sounds normal. No peritoneal signs Musculoskeletal: Right middle finger with significant swelling, warmth and tenderness Skin: No rash or abscess Hem/Lymphatic: No palpable cervical or supraclavicular nodes. No lymphangitis Psych: Mood ok. Affect normal Neurological: Awake, alert, oriented. No gross abnormality - Constitutional Vitals: Vital Signs Temp Pulse Resp BP Pulse Ox 98.4 F 102 H 16 159/100 99 06/10/20 12:04 06/10/20 12:04 06/10/20 12:04 06/10/20 12:04 06/10/20 12:04 Temperature -Last 24 Hours Temperature 98.4 F Temperature 98.0 F Temperature 98.1 F Temperature 98.2 F - Labs CBC & Chem 7: 06/08/20 08:10 06/10/20 07:23 Labs: Abnormal lab results 06/09/20 Range/Units 08:10 C-Reactive Protein 2.60 H (0.00-1.30) mg/dL
[2020-06-11] MEDS: HEPARIN 5,000 UNIT/1 ML VIAL SUB-Q SCH ×4 (01:12→21:09)
[2020-06-11] MEDS: CEFEPIME/NS 2 GM/100 ML 2 GM/100 ML BAG IV SCH ×3 (05:04→21:09)
[2020-06-11] MEDS: VANCOMYCIN 1,250 MG in SODIUM CHLORIDE 0.9% 250ML 250 ML IV SCH ×2 (05:05→18:46)
[2020-06-11] MEDS: MORPHINE 2 MG/1 ML INJ IV PRN ×2 (08:46→21:09)
[2020-06-11] MEDS: CELECOXIB 200 MG CAP PO SCH ×2 (11:46→21:08)
[2020-06-11] MEDS: predniSONE 10 MG TAB PO SCH ×2 (11:47→21:08)
[2020-06-11] MEDS: HYDROXYCHLOROQUINE 200 MG TAB PO SCH ×2 (11:47→21:08)
[2020-06-11] MEDS ORDERED: HYDROmorphone 1 MG/1 ML INJ IV ONE (12:30)
--- NOTE | 2020-06-11 12:50 | Progress Note ---
Assessment and Plan Cultures: 06/08/2020 blood culture: no growth A/P: 64-year-old male with rheumatoid arthritis with: #Right middle finger cellulitis with associated osteomyelitis: No trauma. Xray and MRI concerning for osteomyelitis. #Rheumatoid arthritis, immunocompromised host: Has been taking chronic steroids in addition to celecoxib. He has not taken Enbrel yet, recently was prescribed to him. Recs: -awaiting I&D by orthopedics, given his immunocompromised status, please send OR tissue/pus culture for bacteria and fungi -continue empiric IV cefepime and vancomycin -anticipate 6 weeks of culture directed IV antibiotic therapy. D/W patient. He is right handed and wants to salvage his finger Dustin Frank MD, FACP [facility] ([facility] O: [phone] F: [phone] Subjective Date of service: 06/11/20 Interval history: No fever. Swelling and pain in finger continue. Awaiting surgery. No rash. Objective - Exam Narrative Exam: Physical Exam: Constitutional: Alert, cooperative. No acute distress Head, Ears, Nose: Normocephalic, atraumatic. External ears, nose normal Eyes: Conjunctivae/corneas clear. No icterus. No ptosis. Neck: Supple, no meningeal signs Cardiovascular: S1, S2 normal. Respiratory: Good air entry, clear to auscultation bilaterally GI: Soft, non-tender; bowel sounds normal. No peritoneal signs Musculoskeletal: Right middle finger with significant swelling, warmth and tenderness Skin: No rash or abscess Hem/Lymphatic: No palpable cervical or supraclavicular nodes. No lymphangitis Psych: Mood ok. Affect normal Neurological: Awake, alert, oriented. No gross abnormality - Constitutional Vitals: Vital Signs Temp Pulse Resp BP Pulse Ox 98.0 F 96 H 16 159/101 99 06/11/20 03:41 06/10/20 22:00 06/11/20 03:41 06/11/20 03:41 06/10/20 22:00 Temperature -Last 24 Hours Temperature 98.0 F Temperature 98.7 F Temperature 98.9 F - Labs CBC & Chem 7: 06/08/20 08:10 06/10/20 07:23
--- NOTE | 2020-06-11 14:28 | Anesthesia Consultation ---
Anesthesia Consult and Med Hx Date of service: 06/11/20 - Airway Anesthetic Teeth Evaluation: Dentures (upper and lower) ROM Head & Neck: Adequate Mental/Hyoid Distance: Adequate Mallampati Class: Class II Intubation Access Assessment: Probably Good - Pre-Operative Health Status ASA Pre-Surgery Classification: ASA2 Proposed Anesthetic Plan: General - Pulmonary Hx Smoking: Yes - Central Nervous System Hx Back Pain: Yes (rheumatoid arthritis, right middle finger osteomyelitis) Hx Psychiatric Problems: No - Gastrointestinal Hx Ulcer: Yes (abdominal surgery for ulcer) - Other Systems Hx Cancer: No
--- NOTE | 2020-06-11 14:28 | Anesthesia Day of Surgery ---
Anesthesia Day of Surgery - Day of Surgery Patient Examined: Yes Patient H&P Reviewed: Yes Patient is NPO: Yes
[2020-06-11] MEDS ORDERED: HYDROmorphone 1 MG/1 ML INJ ONE ×2 (14:32→16:38)
[2020-06-11] MEDS ORDERED: LIDOCAINE MPF (2%) 20 MG/1 ML VIAL 5 ML ONE (14:33)
[2020-06-11] MEDS ORDERED: propofoL 200 MG/20 ML VIAL IV ONE (14:33)
[2020-06-11] MEDS ORDERED: BUPIVACAINE/PF (0.5%) 5 MG/1 ML 30 ML VIAL INFILTRATI ONE (14:36)
--- NOTE | 2020-06-11 14:40 | Progress Note ---
Assessment and Plan 64-year-old male with rheumatoid arthritis for which he takes celecoxib and prednisone twice daily for the last several years was admitted to the hospital with worsening pain and swelling of his right middle finger. X-ray here shows findings concerning for possible osteomyelitis. -- Osteomyelitis of finger of right hand Patient placed on empiric IV antibiotics. We will place consult to orthopedic surgery and infectious disease for evaluation and recommendation. -- Leukocytosis with sepsis, POA This is secondary to the underlying right middle finger infection. We will monitor CBC and cont iv abx. --Rheumatoid arthritis, he takes celecoxib and prednisone twice daily -- DVT prophylaxis Patient placed on sequential compression device. -- Full code status Daily clinical course: 06/08/20: Continue empiric antibiotics per ID recommendation, as needed pain management: Wait for orthopedic recommendation and evaluation 06/09: Continue empiric antibiotics, await for orthopedics evaluation, ordered for right hand MRI 06/10; planned for I and D tomorrow, continue empiric antibiotic, follow clinically. Patient might need long-term IV antibiotics, will follow ID recommendation 06/11: Continue IV antibiotics, plan for I&D today. Will follow surgical culture, ID following Subjective Date of service: 06/11/20 Interval history: Patient seen and examined. Medical records and medication list reviewed. No acute event overnight noted by the RN. Patient denies any chest pain or difficulty breathing. Plan for I&D today Discussed plan of care at bedside with patient. Objective - Exam Narrative Exam: GENERAL: well-developed and well-nourished elderly -[place] male lying on bed appeared to be in no discomfort. HEENT: Normocephalic. Atraumatic. No conjunctival congestion or icterus. Patient has moist mucous membranes. NECK: Supple. Trachea midline. CHEST/LUNGS: Clear to auscultated bilaterally, breathing nonlabored. No wheezes crackles or rhonchi. HEART/CARDIOVASCULAR: Regular in rate and rhythm. S1 and S2 positive. ABDOMEN: Abdomen is soft, nontender. Patient has normal bowel sounds. SKIN: There is no rash. Warm and dry. NEURO: No focal motor deficit. Follows command. MUSCULOSKELETAL: Right middle finger with significant swelling, warmth and tenderness EXTRIMITY: No edema, no cyanosis or clubbing. PSYCH: Cooperative. - Constitutional Vitals: Vital Signs - 12hr 06/11/20 03:41 Temperature 98.0 F Respiratory 16 Rate Blood Pressure 159/101 - Labs CBC & Chem 7: 06/08/20 08:10 06/10/20 07:23
[2020-06-11] MEDS ORDERED: SODIUM CHLORIDE 0.9% IRR 1,500 ML BOTTLE IR ONE (15:00)
[2020-06-11] MEDS ORDERED: fentaNYL 100 MCG/2 ML INJ ONE (15:18)
[2020-06-11] MEDS ORDERED: ONDANSETRON 4 MG/2 ML INJ ONE (15:21)
[2020-06-11] MEDS ORDERED: KETOROLAC 30 MG/1 ML INJ ONE (15:22)
[2020-06-11] MEDS ORDERED: MIDAZOLAM 2 MG/2 ML INJ IV ONE ×2 (15:40→15:55)
[2020-06-11] MEDS ORDERED: MIDAZOLAM 2 MG/2 ML INJ ONE (15:42)
[2020-06-11] MEDS ORDERED: HYDROmorphone 1 MG/1 ML INJ IV PRN (16:37)
--- NOTE | 2020-06-11 18:18 | Procedure Note ---
Date of procedure: 06/11/20 Pre-op diagnosis: right 3rd finger flexor tendon infecton Post-op diagnosis: same Procedure: Incision and drainage right 3rd finger Procedure The patient was brought to the OR placed on the OR table in supine position following induction with MAC anesthesia the patient's right upper extremity was prepped and draped in the usual sterile manner. A timeout procedure was done to identify the patient and the correct operative site. The arm was elevated Es march bandage was applied to the level of the elbow and was unwrapped distally exposing the patient's hand incisions were made at the volar surfaces of the metacarpophalangeal joint as well as the distal interphalangeal joint this was then carried down to the tendon sheath using Adson type clamps and a small Nasrin drain was inserted from distal brought through the tendon sheath approximately at the level of the medical carpal phalangeal joint this is being done to help flush out infected fluid in addition patient was also noted to have a small pocket of purulent material along the dorsal lateral surface which again was debrided sharply the tissue appeared viable at all levels proximal middle and distal phalanx following copious irrigation the wound left open for continuous drainage routine postop dressings were applied he tolerated procedure there were no complications Anesthesia: GETA Surgeon: RON NINO (Kristi Coronel, 1st assist) Estimated blood loss: minimal Pathology: list (wound culture sent to lab) Specimen disposition: to lab Condition: stable Disposition: PACU
--- NOTE | 2020-06-11 21:31 | Post Anesthesia Evaluation ---
- Post Anesthesia Evaluation Patient Participated: Yes Airway Patent: Yes Stable Respiratory Function: Yes Nausea/Vomiting: No Temp > 96.8F: Yes Pain Manageable: Yes Adequeate Hydration: Yes Anesthesia Complications: No Block Receding Appropriately: Not Applicable Patient on Ventilator: No
[2020-06-12] MEDS: HEPARIN 5,000 UNIT/1 ML VIAL SUB-Q SCH ×3 (05:25→22:43)
[2020-06-12] MEDS: VANCOMYCIN 1,250 MG in SODIUM CHLORIDE 0.9% 250ML 250 ML IV SCH ×2 (05:25→17:36)
[2020-06-12] MEDS: CEFEPIME/NS 2 GM/100 ML 2 GM/100 ML BAG IV SCH ×3 (05:25→22:42)
[2020-06-12] MEDS: oxyCODONE /ACETAMINOPHEN 5-325MG TAB PO PRN ×3 (07:04→22:47)
[2020-06-12] MEDS: HYDROXYCHLOROQUINE 200 MG TAB PO SCH ×2 (09:12→22:43)
[2020-06-12] MEDS: predniSONE 10 MG TAB PO SCH ×2 (09:12→22:42)
[2020-06-12 09:13] LABS: Hematocrit 37.9 % (35.5-45.6); Hemoglobin 12.4 gm/dl (11.8-15.2); Mean Corpuscular HGB Conc 33 % (32-34); Mean Corpuscular Volume 94 fl (84-94); Platelet Count 282 K/mm3 (140-440); Red Blood Count 4.03 M/mm3 (3.65-5.03); Red Cell Distribution Width 13.9 % (13.2-15.2)
[2020-06-12] MEDS: CELECOXIB 200 MG CAP PO SCH ×2 (09:13→22:42)
[2020-06-12 09:19] LABS: BUN/Creatinine Ratio 25; Blood Urea Nitrogen 20 mg/dL (9-20); Calcium 8.7 mg/dL (8.4-10.2); Hemolysis Index 3
[2020-06-12 10:21] LABS: Band Neutrophils # (Manual) 0.2 K/mm3; Platelet Estimate Consistent w Auto; RBC Morphology Normal; Total Cells Counted 100
--- NOTE | 2020-06-12 12:44 | Progress Note ---
Assessment and Plan Cultures: 06/08/2020 blood culture: no growth A/P: 64-year-old male with rheumatoid arthritis with: #Right middle finger cellulitis, flexor tenosynovitis with associated osteomyelitis: No trauma. Xray and MRI concerning for osteomyelitis. s/p I&D by orthopedics on 06/11/2020. #Rheumatoid arthritis, immunocompromised host: Has been taking chronic steroids in addition to celecoxib. He has not taken Enbrel yet, recently was prescribed to him. Recs: -s/p I&D by orthopedics, f/u OR tissue/pus culture for bacteria and fungi -continue empiric IV Cefepime and vancomycin -anticipate 6 weeks of culture directed IV antibiotic therapy, would prefer once weekly abx if possible Dustin Frank MD, FACP [facility] ([facility] O: [phone] F: [phone] Subjective Date of service: 06/12/20 Interval history: No fever. Had surgery yesterday. Objective - Exam Narrative Exam: Physical Exam: Constitutional: Alert, cooperative. No acute distress Head, Ears, Nose: Normocephalic, atraumatic. External ears, nose normal Eyes: Conjunctivae/corneas clear. No icterus. No ptosis. Neck: Supple, no meningeal signs Cardiovascular: S1, S2 normal. Respiratory: Good air entry, clear to auscultation bilaterally GI: Soft, non-tender; bowel sounds normal. No peritoneal signs Musculoskeletal: Right middle finger with significant swelling, warmth and tenderness Skin: No rash or abscess Hem/Lymphatic: No palpable cervical or supraclavicular nodes. No lymphangitis Psych: Mood ok. Affect normal Neurological: Awake, alert, oriented. No gross abnormality - Constitutional Vitals: Vital Signs Temp Pulse Resp BP Pulse Ox 98.4 F 80 19 109/69 97 06/12/20 04:54 06/11/20 18:17 06/12/20 04:54 06/12/20 04:54 06/12/20 04:57 Temperature -Last 24 Hours Temperature 98.4 F Temperature 98.2 F Temperature 97.5 F Temperature 97.5 F Temperature 97 F - Labs CBC & Chem 7: 06/12/20 07:57 06/12/20 07:57 Labs: Abnormal lab results 05/07/21 Range/Units 07:57 WBC 15.9 H (4.5-11.0) K/mm3 Seg Neuts % (Manual) 79.0 H (40.0-70.0) % Lymphocytes % (Manual) 10.0 L (13.4-35.0) % Monocytes % (Manual) 10.0 H (0.0-7.3) % Seg Neutrophils # Man 12.6 H (1.8-7.7) K/mm3 Monocytes # (Manual) 1.6 H (0.0-0.8) K/mm3
--- NOTE | 2020-06-12 14:37 | Progress Note ---
Assessment and Plan Assessment and plan: Assessment and Plan 64-year-old male with rheumatoid arthritis for which he takes celecoxib and prednisone twice daily for the last several years was admitted to the hospital with worsening pain and swelling of his right middle finger. X-ray here shows findings concerning for possible osteomyelitis. -- Osteomyelitis of finger of right hand Status post incision and debridement on 06/12/2019 by orthopedic surgery Wound cultures are pending Patient placed on empiric IV antibiotics. Patient will need at least 6 weeks of IV antibiotics -- Leukocytosis with sepsis, POA This is secondary to the underlying right middle finger infection. We will monitor CBC and cont iv abx. --Rheumatoid arthritis, celecoxib and prednisone twice daily -- DVT prophylaxis Patient placed on sequential compression device. -- Full code status Disposition: Await for wound cultures, adjust IV antibiotics per infectious disease, patient to be discharged on IV antibiotics History Interval history: Daily clinical course: 06/08/20: Continue empiric antibiotics per ID recommendation, as needed pain management: Wait for orthopedic recommendation and evaluation 06/09: Continue empiric antibiotics, await for orthopedics evaluation, ordered for right hand MRI 06/10; planned for I and D tomorrow, continue empiric antibiotic, follow clinically. Patient might need long-term IV antibiotics, will follow ID recommendation 06/11: Continue IV antibiotics, plan for I&D today. Will follow surgical culture, ID following 06/12: Patient status post I&D, no complaints. No fevers or chills. Tolerating diet. Pain is controlled. Hospitalist Physical - Physical exam Narrative exam: General appearance no acute distress, well-nourished EENT: PERRL, EOM intact, hearing intact, clear oral mucosa, dentition normal Neck: Present: supple, normal ROM Respiratory: bilateral: CTA, negative: rales, rhonchi, wheezing Cardiovascular: Regular rate/rhythm, Normal S1 & S2. No gallop, rub Extremities: Right middle finger with bandage, feeling intact, Abdominal: soft, non-tender, non-distended, normal bowel sounds Integumentary: Present: clear, warm, dry Psychiatric: appropriate mood/affect, intact judgment & insight Neurologic: CNII-XII intact, moves all extremities - Constitutional Vitals: Temp Pulse Resp BP Pulse Ox 98.4 F 80 19 109/69 97 06/12/20 04:54 06/11/20 18:17 06/12/20 04:54 06/12/20 04:54 06/12/20 04:57 General appearance: Present: no acute distress, well-nourished Results - Labs CBC & Chem 7: 06/12/20 07:57 06/12/20 07:57 Labs: Laboratory Last Values WBC 15.9 K/mm3 (4.5-11.0) H 06/12/20 07:57 RBC 4.03 M/mm3 (3.65-5.03) 06/12/20 07:57 Hgb 12.4 gm/dl (11.8-15.2) 06/12/20 07:57 Hct 37.9 % (35.5-45.6) 06/12/20 07:57 MCV 94 fl (84-94) 06/12/20 07:57 MCH 31 pg (28-32) 06/12/20 07:57 MCHC 33 % (32-34) 06/12/20 07:57 RDW 13.9 % (13.2-15.2) 06/12/20 07:57 Plt Count 282 K/mm3 (140-440) 06/12/20 07:57 Lymph % (Auto) 13.8 % (13.4-35.0) 06/08/20 08:10 [place] % (Auto) 10.7 % (0.0-7.3) H 06/08/20 08:10 Eos % (Auto) 0.7 % (0.0-4.3) 06/08/20 08:10 Baso % (Auto) 0.4 % (0.0-1.8) 06/08/20 08:10 Lymph # (Auto) 2.6 K/mm3 (1.2-5.4) 06/08/20 08:10 [place] # (Auto) 2.0 K/mm3 (0.0-0.8) H 06/08/20 08:10 Eos # (Auto) 0.1 K/mm3 (0.0-0.4) 06/08/20 08:10 Baso # (Auto) 0.1 K/mm3 (0.0-0.1) 06/08/20 08:10 Add Manual Diff Complete 06/12/20 07:57 Total Counted 100 06/12/20 07:57 Seg Neutrophils % 74.4 % (40.0-70.0) H 06/08/20 08:10 Seg Neuts % (Manual) 79.0 % (40.0-70.0) H 06/12/20 07:57 Band Neutrophils % 1.0 % 06/12/20 07:57 Lymphocytes % (Manual) 10.0 % (13.4-35.0) L 06/12/20 07:57 Monocytes % (Manual) 10.0 % (0.0-7.3) H 06/12/20 07:57 Eosinophils % (Manual) 1.0 % (0.0-4.3) 06/07/20 19:23 Nucleated RBC % Not Reportable 06/12/20 07:57 Seg Neutrophils # 13.9 K/mm3 (1.8-7.7) H 06/08/20 08:10 Seg Neutrophils # Man 12.6 K/mm3 (1.8-7.7) H 06/12/20 07:57 Band Neutrophils # 0.2 K/mm3 06/12/20 07:57 Lymphocytes # (Manual) 1.6 K/mm3 (1.2-5.4) 06/12/20 07:57 Abs React Lymphs (Man) 0.0 K/mm3 06/12/20 07:57 Monocytes # (Manual) 1.6 K/mm3 (0.0-0.8) H 06/12/20 07:57 Eosinophils # (Manual) 0.0 K/mm3 (0.0-0.4) 06/12/20 07:57 Basophils # (Manual) 0.0 K/mm3 (0.0-0.1) 06/12/20 07:57 Metamyelocytes # 0.0 K/mm3 06/12/20 07:57 Myelocytes # 0.0 K/mm3 06/12/20 07:57 Promyelocytes # 0.0 K/mm3 06/12/20 07:57 Blast Cells # 0.0 K/mm3 06/12/20 07:57 WBC Morphology Not Reportable 06/12/20 07:57 Hypersegmented Neuts Not Reportable 06/12/20 07:57 Hyposegmented Neuts Not Reportable 06/12/20 07:57 Hypogranular Neuts Not Reportable 06/12/20 07:57 Smudge Cells Not Reportable 06/12/20 07:57 Toxic Granulation Not Reportable 06/12/20 07:57 Toxic Vacuolation Not Reportable 06/12/20 07:57 Dohle Bodies Not Reportable 06/12/20 07:57 Pelger-Huet Anomaly Not Reportable 06/12/20 07:57 Alice Rods Not Reportable 06/12/20 07:57 Platelet Estimate Consistent w auto 06/12/20 07:57 Clumped Platelets Not Reportable 06/12/20 07:57 Plt Clumps, EDTA Not Reportable 06/12/20 07:57 Large Platelets Not Reportable 06/12/20 07:57 Giant Platelets Not Reportable 06/12/20 07:57 Platelet Satelliting Not Reportable 06/12/20 07:57 Plt Morphology Comment Not Reportable 06/12/20 07:57 RBC Morphology Normal 06/12/20 07:57 Dimorphic RBCs Not Reportable 06/12/20 07:57 Polychromasia Not Reportable 06/12/20 07:57 Hypochromasia Not Reportable 06/12/20 07:57 Poikilocytosis Not Reportable 06/12/20 07:57 Anisocytosis Not Reportable 06/12/20 07:57 Microcytosis Not Reportable 06/12/20 07:57 Macrocytosis Not Reportable 06/12/20 07:57 Spherocytes Not Reportable 06/12/20 07:57 Pappenheimer Bodies Not Reportable 06/12/20 07:57 Sickle Cells Not Reportable 06/12/20 07:57 Target Cells Not Reportable 06/12/20 07:57 Tear Drop Cells Not Reportable 06/12/20 07:57 Ovalocytes Not Reportable 06/12/20 07:57 Helmet Cells Not Reportable 06/12/20 07:57 Rangel-[place] Bodies Not Reportable 06/12/20 07:57 [place] Rings Not Reportable 06/12/20 07:57 [place] Cells Not Reportable 06/12/20 07:57 Bite Cells Not Reportable 06/12/20 07:57 Crenated Cell Not Reportable 06/12/20 07:57 Elliptocytes Not Reportable 06/12/20 07:57 Acanthocytes (Spur) Not Reportable 06/12/20 07:57 Rouleaux Not Reportable 06/12/20 07:57 Hemoglobin C Crystals Not Reportable 06/12/20 07:57 Schistocytes Not Reportable 06/12/20 07:57 Malaria parasites Not Reportable 06/12/20 07:57 Abhinav Bodies Not Reportable 06/12/20 07:57 Hem Pathologist Commnt No 06/12/20 07:57 PT 12.5 Sec. (12.2-14.9) 06/08/20 08:10 INR 0.94 (0.87-1.13) 06/08/20 08:10 Sodium 141 mmol/L (137-145) 06/12/20 07:57 Potassium 4.2 mmol/L (3.6-5.0) 06/12/20 07:57 Chloride 105.0 mmol/L (98-107) 06/12/20 07:57 Carbon Dioxide 25 mmol/L (22-30) 06/12/20 07:57 Anion Gap 15 mmol/L 06/12/20 07:57 BUN 20 mg/dL (9-20) 06/12/20 07:57 Creatinine 0.8 mg/dL (0.8-1.3) 06/12/20 07:57 Estimated GFR > 60 ml/min 06/12/20 07:57 BUN/Creatinine Ratio 25 % 06/12/20 07:57 Glucose 99 mg/dL (75-100) 06/12/20 07:57 Calcium 8.7 mg/dL (8.4-10.2) 06/12/20 07:57 C-Reactive Protein 2.60 mg/dL (0.00-1.30) H 06/09/20 08:10 Nasal Screen MRSA (PCR) Positive (Negative) 06/08/20 Unknown Vancomycin Trough 11.3 ug/mL (5.0-20.0) 06/10/20 07:23 Microbiology: Microbiology 06/11/20 Unknown Hand - Right Surgical Culture - Preliminary Staphylococcus Aureus 06/08/20 16:19 Peripheral/Venous Blood Culture - Preliminary NO GROWTH AFTER 72 HOURS 06/08/20 16:19 Peripheral/Venous Blood Culture - Preliminary NO GROWTH AFTER 72 HOURS Womack/IV: Voiding Method Toilet Active Medications - Current Medications Current Medications: Generic Name Dose Route Start Last Admin Trade Name Freq PRN Reason Stop Dose Admin Acetaminophen 650 mg 06/07/20 22:01 Acetaminophen 325 Mg Tab PO Q4H PRN Pain MILD(1-3)/Fever >100.5/HILL Celecoxib 200 mg 06/08/20 13:00 06/12/20 09:13 Celecoxib 200 Mg Cap PO 200 mg BID LEANDRO Administration Heparin Sodium (Porcine) 5,000 unit 06/08/20 06:00 06/12/20 13:21 Heparin 5,000 Unit/1 Ml Vial SUB-Q 5,000 unit Q8HR LEANDRO Administration Hydromorphone HCl 0.5 mg 06/11/20 16:37 06/11/20 16:45 Hydromorphone 1 Mg/1 Ml Inj IV 06/12/20 16:36 0.5 mg Q10MIN PRN Administration Pain , Severe (7-10) Hydroxychloroquine Sulfate 200 mg 06/08/20 13:00 06/12/20 09:12 Hydroxychloroquine 200 Mg Tab PO 200 mg BID LEANDRO Administration Sodium Chloride 1,000 mls @ 125 mls/hr 06/07/20 22:15 06/10/20 21:47 Nacl 0.9% 1000 Ml IV 125 mls/hr DIRECT LEANDRO Administration Cefepime HCl 2 gm in 100 mls @ 200 mls/hr 06/07/20 23:00 06/12/20 13:20 Cefepime/Ns 2 Gm/100 Ml IV 200 mls/hr Q8HR LEANDRO Administration Protocol Vancomycin HCl 1,250 mg/ 275 mls @ 166.667 mls/hr 06/09/20 06:00 06/12/20 05:25 Sodium Chloride IV 166.667 mls/hr Q12H LEANDRO Administration Magnesium Hydroxide 30 ml 06/07/20 22:01 Magnesium Hydroxide (Mom) Oral Liqd Udc PO Q4H PRN Constipation Miscellaneous Medication 50 mg 06/15/20 10:00 Etanercept [Enbrel Sureclick] SQ QWEEK LEANDRO Morphine Sulfate 3 mg 06/08/20 16:43 06/11/20 21:09 Morphine 2 Mg/1 Ml Inj IV 3 mg Q4H PRN Administration Pain , Severe (7-10) Ondansetron HCl 4 mg 06/07/20 22:01 Ondansetron 4 Mg/2 Ml Inj IV Q8H PRN Nausea And Vomiting Oxycodone/Acetaminophen 1 tab 06/08/20 16:43 06/12/20 13:41 Oxycodone /Acetaminophen 5-325mg Tab PO 1 tab Q6H PRN Administration Pain, Moderate (4-6) Prednisone 10 mg 06/08/20 13:00 06/12/20 09:12 Prednisone 10 Mg Tab PO 10 mg BID LEANDRO Administration Sodium Chloride 10 ml 06/08/20 10:00 06/12/20 09:14 Sodium Chloride 0.9% 10 Ml Flush Syringe IV 10 ml BID LEANDRO Administration Sodium Chloride 10 ml 06/07/20 22:01 Sodium Chloride 0.9% 10 Ml Flush Syringe IV PRN PRN LINE FLUSH Nutrition/Malnutrition Assess - Dietary Evaluation Nutrition/Malnutrition Findings: Nutrition Notes Start: 06/08/20 11:47 Freq: Status: Active Protocol: Document 06/12/20 10:58 (Rec: 06/12/20 10:59 [id number]) Nutrition Notes Need for Assessment generated from: LOS Initial or Follow up Brief Note Subjective/Other Information Screen for LOS. Pt reports eating 100% of meals. Nutrition Intervention Revisit per MD consult or patient Sign Off request:
--- NOTE | 2020-06-12 15:08 | Progress Note ---
Assessment and Plan s/p I&D right 3rd digit continue IVAB, and observation Subjective Date of service: 06/12/20 Interval history: no c/o noted, wants to know when he can dc'd... Objective Vital signs: Vital Signs - 12hr 06/12/20 06/12/20 04:54 04:57 Temperature 98.4 F Respiratory 19 Rate Blood Pressure 109/69 O2 Sat by Pulse 97 Oximetry Incision: draining - Labs CBC & BMP: 06/12/20 07:57 06/12/20 07:57 Labs: Abnormal lab results 06/12/20 Range/Units 07:57 WBC 15.9 H (4.5-11.0) K/mm3 Seg Neuts % (Manual) 79.0 H (40.0-70.0) % Lymphocytes % (Manual) 10.0 L (13.4-35.0) % Monocytes % (Manual) 10.0 H (0.0-7.3) % Seg Neutrophils # Man 12.6 H (1.8-7.7) K/mm3 Monocytes # (Manual) 1.6 H (0.0-0.8) K/mm3
[2020-06-12] MEDS: MORPHINE 2 MG/1 ML INJ IV PRN (20:37)
[2020-06-12] MEDS: SODIUM CHLORIDE 0.9% 1000 ML 1,000 ML IV SCH (22:44)
[2020-06-13] MEDS: oxyCODONE /ACETAMINOPHEN 5-325MG TAB PO PRN ×3 (04:52→20:59)
[2020-06-13] MEDS: CEFEPIME/NS 2 GM/100 ML 2 GM/100 ML BAG IV SCH (05:22)
[2020-06-13] MEDS: HEPARIN 5,000 UNIT/1 ML VIAL SUB-Q SCH ×3 (05:23→21:00)
[2020-06-13] MEDS: VANCOMYCIN 1,250 MG in SODIUM CHLORIDE 0.9% 250ML 250 ML IV SCH ×2 (06:42→17:16)
[2020-06-13] MEDS: HYDROXYCHLOROQUINE 200 MG TAB PO SCH ×2 (09:23→21:00)
[2020-06-13] MEDS: CELECOXIB 200 MG CAP PO SCH ×2 (09:24→21:00)
[2020-06-13] MEDS: predniSONE 10 MG TAB PO SCH ×2 (09:24→21:00)
--- NOTE | 2020-06-13 12:32 | Progress Note ---
Assessment and Plan Cultures: 06/08/2020 blood culture: no growth 06/11/2020 OR culture R finger: MRSA A/P: 64-year-old male with rheumatoid arthritis with: #Right middle finger cellulitis, flexor tenosynovitis with associated osteo myelitis: No trauma. Xray and MRI concerning for osteomyelitis. s/p I&D by orthopedics on 06/11/2020. #Rheumatoid arthritis, immunocompromised host: Has been taking chronic steroids in addition to celecoxib. He has not taken Enbrel yet, recently was prescribed to him. Recs: -Culture with MRSA. Cefepime stopped -continue IV vancomycin -discussed need for 6 weeks of culture directed IV antibiotic therapy, would prefer once weekly abx if possible. Referral for weekly Oritavancin sent to [facility], await insurance approval, probably by Monday Dustin Frank MD, FACP [facility] ([facility]) O: [phone] F: [phone] Subjective Date of service: 06/13/20 Interval history: No fever. Eating food. Feels well. Hoping for discharge soon. Objective - Exam Narrative Exam: Physical Exam: Constitutional: Alert, cooperative. No acute distress Head, Ears, Nose: Normocephalic, atraumatic. External ears, nose normal Eyes: Conjunctivae/corneas clear. No icterus. No ptosis. Neck: Supple, no meningeal signs Cardiovascular: S1, S2 normal. Respiratory: Good air entry, clear to auscultation bilaterally GI: Soft, non-tender; bowel sounds normal. No peritoneal signs Musculoskeletal: Right middle finger in post surgical dressing Skin: No rash or abscess Hem/Lymphatic: No palpable cervical or supraclavicular nodes. No lymphangitis Psych: Mood ok. Affect normal Neurological: Awake, alert, oriented. No gross abnormality - Constitutional Vitals: Vital Signs Temp Pulse Resp BP Pulse Ox 98.5 F 95 H 18 134/92 98 06/13/20 04:28 06/13/20 05:22 06/13/20 05:22 06/13/20 05:22 06/13/20 05:22 Temperature -Last 24 Hours Temperature 98.5 F Temperature 98.3 F Temperature 98.3 F Temperature 98.3 F - Labs CBC & Chem 7: 06/12/20 07:57 06/12/20 07:57
--- NOTE | 2020-06-13 13:15 | Progress Note ---
Assessment and Plan Assessment and plan: Assessment and Plan 64-year-old male with rheumatoid arthritis for which he takes celecoxib and prednisone twice daily for the last several years was admitted to the hospital with worsening pain and swelling of his right middle finger. X-ray here shows findings concerning for possible osteomyelitis. -- Osteomyelitis of finger of right hand Status post incision and debridement on 06/12/2019 by orthopedic surgery Wound cultures positive for MRSA Continue vancomycin Patient will need at least 6 weeks of IV antibiotics -- Leukocytosis with sepsis, POA This is secondary to the underlying right middle finger infection. We will monitor CBC and cont iv abx. --Rheumatoid arthritis, celecoxib and prednisone twice daily -- DVT prophylaxis Patient placed on sequential compression device. -- Full code status Disposition: Patient will need 6 weeks of IV antibiotics. MRSA infection, will await insurance authorization for antibiotics on Monday. History Interval history: Daily clinical course: 06/08/20: Continue empiric antibiotics per ID recommendation, as needed pain management: Wait for orthopedic recommendation and evaluation 06/09: Continue empiric antibiotics, await for orthopedics evaluation, ordered for right hand MRI 06/10; planned for I and D tomorrow, continue empiric antibiotic, follow clinically. Patient might need long-term IV antibiotics, will follow ID recommendation 06/11: Continue IV antibiotics, plan for I&D today. Will follow surgical culture, ID following 06/12: Patient status post I&D, no complaints. No fevers or chills. Tolerating diet. Pain is controlled. 06/13: Patient was complaining of swelling in his right hand. States that the bandage was too tight, loosen the nicolas bandage a bit which gave him some relief. Dressings were not removed. Hospitalist Physical - Physical exam Narrative exam: General appearance no acute distress, well-nourished EENT: PERRL, EOM intact, hearing intact, clear oral mucosa, dentition normal Neck: Present: supple, normal ROM Respiratory: bilateral: CTA, negative: rales, rhonchi, wheezing Cardiovascular: Regular rate/rhythm, Normal S1 & S2. No gallop, rub Extremities: Right middle finger with a's bandage, feelings intact in all 4 fingers Abdominal: soft, non-tender, non-distended, normal bowel sounds Integumentary: Present: clear, warm, dry Psychiatric: appropriate mood/affect, intact judgment & insight Neurologic: CNII-XII intact, moves all extremities - Constitutional Vitals: Temp Pulse Resp BP Pulse Ox 98.8 F 102 H 18 150/98 100 06/13/20 11:34 06/13/20 11:34 06/13/20 11:34 06/13/20 11:34 06/13/20 11:34 General appearance: Present: no acute distress, well-nourished Results - Labs CBC & Chem 7: 06/12/20 07:57 06/12/20 07:57 Labs: Laboratory Last Values WBC 15.9 K/mm3 (4.5-11.0) H 06/12/20 07:57 RBC 4.03 M/mm3 (3.65-5.03) 06/12/20 07:57 Hgb 12.4 gm/dl (11.8-15.2) 06/12/20 07:57 Hct 37.9 % (35.5-45.6) 06/12/20 07:57 MCV 94 fl (84-94) 06/12/20 07:57 MCH 31 pg (28-32) 06/12/20 07:57 MCHC 33 % (32-34) 06/12/20 07:57 RDW 13.9 % (13.2-15.2) 06/12/20 07:57 Plt Count 282 K/mm3 (140-440) 06/12/20 07:57 Lymph % (Auto) 13.8 % (13.4-35.0) 06/08/20 08:10 [place] % (Auto) 10.7 % (0.0-7.3) H 06/08/20 08:10 Eos % (Auto) 0.7 % (0.0-4.3) 06/08/20 08:10 Baso % (Auto) 0.4 % (0.0-1.8) 06/08/20 08:10 Lymph # (Auto) 2.6 K/mm3 (1.2-5.4) 06/08/20 08:10 [place] # (Auto) 2.0 K/mm3 (0.0-0.8) H 06/08/20 08:10 Eos # (Auto) 0.1 K/mm3 (0.0-0.4) 06/08/20 08:10 Baso # (Auto) 0.1 K/mm3 (0.0-0.1) 06/08/20 08:10 Add Manual Diff Complete 06/12/20 07:57 Total Counted 100 06/12/20 07:57 Seg Neutrophils % 74.4 % (40.0-70.0) H 06/08/20 08:10 Seg Neuts % (Manual) 79.0 % (40.0-70.0) H 06/12/20 07:57 Band Neutrophils % 1.0 % 06/12/20 07:57 Lymphocytes % (Manual) 10.0 % (13.4-35.0) L 06/12/20 07:57 Monocytes % (Manual) 10.0 % (0.0-7.3) H 06/12/20 07:57 Eosinophils % (Manual) 1.0 % (0.0-4.3) 06/07/20 19:23 Nucleated RBC % Not Reportable 06/12/20 07:57 Seg Neutrophils # 13.9 K/mm3 (1.8-7.7) H 06/08/20 08:10 Seg Neutrophils # Man 12.6 K/mm3 (1.8-7.7) H 06/12/20 07:57 Band Neutrophils # 0.2 K/mm3 06/12/20 07:57 Lymphocytes # (Manual) 1.6 K/mm3 (1.2-5.4) 06/12/20 07:57 Abs React Lymphs (Man) 0.0 K/mm3 06/12/20 07:57 Monocytes # (Manual) 1.6 K/mm3 (0.0-0.8) H 06/12/20 07:57 Eosinophils # (Manual) 0.0 K/mm3 (0.0-0.4) 06/12/20 07:57 Basophils # (Manual) 0.0 K/mm3 (0.0-0.1) 06/12/20 07:57 Metamyelocytes # 0.0 K/mm3 06/12/20 07:57 Myelocytes # 0.0 K/mm3 06/12/20 07:57 Promyelocytes # 0.0 K/mm3 06/12/20 07:57 Blast Cells # 0.0 K/mm3 06/12/20 07:57 WBC Morphology Not Reportable 06/12/20 07:57 Hypersegmented Neuts Not Reportable 06/12/20 07:57 Hyposegmented Neuts Not Reportable 06/12/20 07:57 Hypogranular Neuts Not Reportable 06/12/20 07:57 Smudge Cells Not Reportable 06/12/20 07:57 Toxic Granulation Not Reportable 06/12/20 07:57 Toxic Vacuolation Not Reportable 06/12/20 07:57 Dohle Bodies Not Reportable 06/12/20 07:57 Pelger-Huet Anomaly Not Reportable 06/12/20 07:57 Alice Rods Not Reportable 06/12/20 07:57 Platelet Estimate Consistent w auto 06/12/20 07:57 Clumped Platelets Not Reportable 06/12/20 07:57 Plt Clumps, EDTA Not Reportable 06/12/20 07:57 Large Platelets Not Reportable 06/12/20 07:57 Giant Platelets Not Reportable 06/12/20 07:57 Platelet Satelliting Not Reportable 06/12/20 07:57 Plt Morphology Comment Not Reportable 06/12/20 07:57 RBC Morphology Normal 06/12/20 07:57 Dimorphic RBCs Not Reportable 06/12/20 07:57 Polychromasia Not Reportable 06/12/20 07:57 Hypochromasia Not Reportable 06/12/20 07:57 Poikilocytosis Not Reportable 06/12/20 07:57 Anisocytosis Not Reportable 06/12/20 07:57 Microcytosis Not Reportable 06/12/20 07:57 Macrocytosis Not Reportable 06/12/20 07:57 Spherocytes Not Reportable 06/12/20 07:57 Pappenheimer Bodies Not Reportable 06/12/20 07:57 Sickle Cells Not Reportable 06/12/20 07:57 Target Cells Not Reportable 06/12/20 07:57 Tear Drop Cells Not Reportable 06/12/20 07:57 Ovalocytes Not Reportable 06/12/20 07:57 Helmet Cells Not Reportable 06/12/20 07:57 Rangel-Mize Bodies Not Reportable 06/12/20 07:57 [place] Rings Not Reportable 06/12/20 07:57 [place] Cells Not Reportable 06/12/20 07:57 Bite Cells Not Reportable 06/12/20 07:57 Crenated Cell Not Reportable 06/12/20 07:57 Elliptocytes Not Reportable 06/12/20 07:57 Acanthocytes (Spur) Not Reportable 06/12/20 07:57 Rouleaux Not Reportable 06/12/20 07:57 Hemoglobin C Crystals Not Reportable 06/12/20 07:57 Schistocytes Not Reportable 06/12/20 07:57 Malaria parasites Not Reportable 06/12/20 07:57 Abhinav Bodies Not Reportable 06/12/20 07:57 Hem Pathologist Commnt No 06/12/20 07:57 PT 12.5 Sec. (12.2-14.9) 06/08/20 08:10 INR 0.94 (0.87-1.13) 06/08/20 08:10 Sodium 141 mmol/L (137-145) 06/12/20 07:57 Potassium 4.2 mmol/L (3.6-5.0) 06/12/20 07:57 Chloride 105.0 mmol/L (98-107) 06/12/20 07:57 Carbon Dioxide 25 mmol/L (22-30) 06/12/20 07:57 Anion Gap 15 mmol/L 06/12/20 07:57 BUN 20 mg/dL (9-20) 06/12/20 07:57 Creatinine 0.8 mg/dL (0.8-1.3) 06/12/20 07:57 Estimated GFR > 60 ml/min 06/12/20 07:57 BUN/Creatinine Ratio 25 % 06/12/20 07:57 Glucose 99 mg/dL (75-100) 06/12/20 07:57 Calcium 8.7 mg/dL (8.4-10.2) 06/12/20 07:57 C-Reactive Protein 2.60 mg/dL (0.00-1.30) H 06/09/20 08:10 Nasal Screen MRSA (PCR) Positive (Negative) 06/08/20 Unknown Vancomycin Trough 11.3 ug/mL (5.0-20.0) 06/10/20 07:23 Microbiology: Microbiology 06/11/20 Unknown Finger - Right Middle Anaerobic Culture - Preliminary 06/11/20 Unknown Hand - Right Surgical Culture - Final Methicillin Resist S. Aureus 06/08/20 16:19 Peripheral/Venous Blood Culture - Preliminary NO GROWTH AFTER 4 DAYS 06/08/20 16:19 Peripheral/Venous Blood Culture - Preliminary NO GROWTH AFTER 4 DAYS Womack/IV: Voiding Method Toilet Active Medications - Current Medications Current Medications: Generic Name Dose Route Start Last Admin Trade Name Freq PRN Reason Stop Dose Admin Acetaminophen 650 mg 06/07/20 22:01 Acetaminophen 325 Mg Tab PO Q4H PRN Pain MILD(1-3)/Fever >100.5/HILL Celecoxib 200 mg 06/08/20 13:00 06/13/20 09:24 Celecoxib 200 Mg Cap PO 200 mg BID LEANDRO Administration Heparin Sodium (Porcine) 5,000 unit 06/08/20 06:00 06/13/20 05:23 Heparin 5,000 Unit/1 Ml Vial SUB-Q Not Given Q8HR LEANDRO Hydroxychloroquine Sulfate 200 mg 06/08/20 13:00 06/13/20 09:23 Hydroxychloroquine 200 Mg Tab PO 200 mg BID LEANDRO Administration Sodium Chloride 1,000 mls @ 125 mls/hr 06/07/20 22:15 06/12/20 22:44 Nacl 0.9% 1000 Ml IV 125 mls/hr DIRECT LEANDRO Administration Vancomycin HCl 1,250 mg/ 275 mls @ 166.667 mls/hr 06/09/20 06:00 06/13/20 06:42 Sodium Chloride IV 166.667 mls/hr Q12H LEANDRO Administration Magnesium Hydroxide 30 ml 06/07/20 22:01 Magnesium Hydroxide (Mom) Oral Liqd Udc PO Q4H PRN Constipation Miscellaneous Medication 50 mg 06/15/20 10:00 Etanercept [Enbrel Sureclick] SQ QWEEK LEANDRO Morphine Sulfate 3 mg 06/08/20 16:43 06/12/20 20:37 Morphine 2 Mg/1 Ml Inj IV 3 mg Q4H PRN Administration Pain , Severe (7-10) Ondansetron HCl 4 mg 06/07/20 22:01 Ondansetron 4 Mg/2 Ml Inj IV Q8H PRN Nausea And Vomiting Oxycodone/Acetaminophen 1 tab 06/08/20 16:43 06/13/20 04:52 Oxycodone /Acetaminophen 5-325mg Tab PO 1 tab Q6H PRN Administration Pain, Moderate (4-6) Prednisone 10 mg 06/08/20 13:00 06/13/20 09:24 Prednisone 10 Mg Tab PO 10 mg BID LEANDRO Administration Sodium Chloride 10 ml 06/08/20 10:00 06/13/20 09:25 Sodium Chloride 0.9% 10 Ml Flush Syringe IV 10 ml BID LEANDRO Administration Sodium Chloride 10 ml 06/07/20 22:01 Sodium Chloride 0.9% 10 Ml Flush Syringe IV PRN PRN LINE FLUSH Nutrition/Malnutrition Assess - Dietary Evaluation Nutrition/Malnutrition Findings: Nutrition Notes Start: 06/08/20 11:47 Freq: Status: Active Protocol: Document 06/12/20 10:58 (Rec: 06/12/20 10:59 [id number]) Nutrition Notes Need for Assessment generated from: LOS Initial or Follow up Brief Note Subjective/Other Information Screen for LOS. Pt reports eating 100% of meals. Nutrition Intervention Revisit per MD consult or patient Sign Off request:
[2020-06-13] MEDS: SODIUM CHLORIDE 0.9% 1000 ML 1,000 ML IV SCH (14:21)
[2020-06-14 05:48] LABS: Hematocrit 36.9 % (35.5-45.6); Mean Corpuscular HGB Conc 32 % (32-34); Mean Corpuscular Volume 95 fl (84-94); Platelet Count 288 K/mm3 (140-440); Red Blood Count 3.88 M/mm3 (3.65-5.03); Red Cell Distribution Width 13.7 % (13.2-15.2)
[2020-06-14] MEDS: VANCOMYCIN 1,250 MG in SODIUM CHLORIDE 0.9% 250ML 250 ML IV SCH ×2 (06:08→17:34)
[2020-06-14] MEDS: HEPARIN 5,000 UNIT/1 ML VIAL SUB-Q SCH ×2 (06:08→21:01)
[2020-06-14] MEDS: oxyCODONE /ACETAMINOPHEN 5-325MG TAB PO PRN ×2 (06:21→18:30)
[2020-06-14 06:33] LABS: Blood Urea Nitrogen 11 mg/dL (9-20); Calcium 8.7 mg/dL (8.4-10.2); Hemolysis Index 17
[2020-06-14 06:39] LABS: BUN/Creatinine Ratio 16
--- NOTE | 2020-06-14 08:56 | Progress Note ---
Assessment and Plan Assessment and plan: Assessment and Plan 64-year-old male with rheumatoid arthritis for which he takes celecoxib and prednisone twice daily for the last several years was admitted to the hospital with worsening pain and swelling of his right middle finger. X-ray here shows findings concerning for possible osteomyelitis. -- Osteomyelitis of finger of right hand Status post incision and debridement on 06/12/2019 by orthopedic surgery Wound cultures positive for MRSA Continue vancomycin Patient will need at least 6 weeks of IV antibiotics -- Leukocytosis with sepsis, POA This is secondary to the underlying right middle finger infection. We will monitor CBC and cont vancomycin for MRSA --Right-sided rib pain Chest x-ray pending --Rheumatoid arthritis, celecoxib and prednisone twice daily -- DVT prophylaxis Patient placed on sequential compression device. -- Full code status Disposition: Patient will need 6 weeks of IV antibiotics. MRSA infection, will await insurance authorization for antibiotics on Monday. History Interval history: Daily clinical course: 06/08/20: Continue empiric antibiotics per ID recommendation, as needed pain management: Wait for orthopedic recommendation and evaluation 06/09: Continue empiric antibiotics, await for orthopedics evaluation, ordered for right hand MRI 06/10; planned for I and D tomorrow, continue empiric antibiotic, follow clinically. Patient might need long-term IV antibiotics, will follow ID recommendation 06/11: Continue IV antibiotics, plan for I&D today. Will follow surgical culture, ID following 06/12: Patient status post I&D, no complaints. No fevers or chills. Tolerating diet. Pain is controlled. 06/13: Patient was complaining of swelling in his right hand. States that the bandage was too tight, loosen the elder bandage a bit which gave him some relief. Dressings were not removed. 06/14: Patient doing well, complains of right sided rib pain. Patient did not fall. No fevers or chills. And with less swelling. Anticipate dressing change today. Hospitalist Physical - Physical exam Narrative exam: General appearance no acute distress, well-nourished EENT: PERRL, EOM intact, hearing intact, clear oral mucosa, dentition normal Neck: Present: supple, normal ROM Respiratory: bilateral: CTA, negative: rales, rhonchi, wheezing Cardiovascular: Regular rate/rhythm, Normal S1 & S2. No gallop, rub Extremities: Right middle finger Elder bandage, less swelling in right hand Abdominal: soft, non-tender, non-distended, normal bowel sounds MSK: Right-sided ribs with tenderness to palpation, no ecchymosis or bruising Integumentary: Present: clear, warm, dry Psychiatric: appropriate mood/affect, intact judgment & insight Neurologic: CNII-XII intact, moves all extremities - Constitutional Vitals: Temp Pulse Resp BP Pulse Ox 98.7 F 105 H 18 140/78 96 06/14/20 04:17 06/14/20 04:17 06/14/20 06:21 06/14/20 04:17 06/14/20 04:17 General appearance: Present: no acute distress, well-nourished Results - Labs CBC & Chem 7: 06/14/20 04:56 06/14/20 04:56 Labs: Laboratory Last Values WBC 14.6 K/mm3 (4.5-11.0) H 06/14/20 04:56 RBC 3.88 M/mm3 (3.65-5.03) 06/14/20 04:56 Hgb 12.0 gm/dl (11.8-15.2) 06/14/20 04:56 Hct 36.9 % (35.5-45.6) 06/14/20 04:56 MCV 95 fl (84-94) H 06/14/20 04:56 MCH 31 pg (28-32) 06/14/20 04:56 MCHC 32 % (32-34) 06/14/20 04:56 RDW 13.7 % (13.2-15.2) 06/14/20 04:56 Plt Count 288 K/mm3 (140-440) 06/14/20 04:56 Lymph % (Auto) 13.8 % (13.4-35.0) 06/08/20 08:10 [place] % (Auto) 10.7 % (0.0-7.3) H 06/08/20 08:10 Eos % (Auto) 0.7 % (0.0-4.3) 06/08/20 08:10 Baso % (Auto) 0.4 % (0.0-1.8) 06/08/20 08:10 Lymph # (Auto) 2.6 K/mm3 (1.2-5.4) 06/08/20 08:10 [place] # (Auto) 2.0 K/mm3 (0.0-0.8) H 06/08/20 08:10 Eos # (Auto) 0.1 K/mm3 (0.0-0.4) 06/08/20 08:10 Baso # (Auto) 0.1 K/mm3 (0.0-0.1) 06/08/20 08:10 Add Manual Diff Complete 06/12/20 07:57 Total Counted 100 06/12/20 07:57 Seg Neutrophils % 74.4 % (40.0-70.0) H 06/08/20 08:10 Seg Neuts % (Manual) 79.0 % (40.0-70.0) H 06/12/20 07:57 Band Neutrophils % 1.0 % 06/12/20 07:57 Lymphocytes % (Manual) 10.0 % (13.4-35.0) L 06/12/20 07:57 Monocytes % (Manual) 10.0 % (0.0-7.3) H 06/12/20 07:57 Eosinophils % (Manual) 1.0 % (0.0-4.3) 06/07/20 19:23 Nucleated RBC % Not Reportable 06/12/20 07:57 Seg Neutrophils # 13.9 K/mm3 (1.8-7.7) H 06/08/20 08:10 Seg Neutrophils # Man 12.6 K/mm3 (1.8-7.7) H 06/12/20 07:57 Band Neutrophils # 0.2 K/mm3 06/12/20 07:57 Lymphocytes # (Manual) 1.6 K/mm3 (1.2-5.4) 06/12/20 07:57 Abs React Lymphs (Man) 0.0 K/mm3 06/12/20 07:57 Monocytes # (Manual) 1.6 K/mm3 (0.0-0.8) H 06/12/20 07:57 Eosinophils # (Manual) 0.0 K/mm3 (0.0-0.4) 06/12/20 07:57 Basophils # (Manual) 0.0 K/mm3 (0.0-0.1) 06/12/20 07:57 Metamyelocytes # 0.0 K/mm3 06/12/20 07:57 Myelocytes # 0.0 K/mm3 06/12/20 07:57 Promyelocytes # 0.0 K/mm3 06/12/20 07:57 Blast Cells # 0.0 K/mm3 06/12/20 07:57 WBC Morphology Not Reportable 06/12/20 07:57 Hypersegmented Neuts Not Reportable 06/12/20 07:57 Hyposegmented Neuts Not Reportable 06/12/20 07:57 Hypogranular Neuts Not Reportable 06/12/20 07:57 Smudge Cells Not Reportable 06/12/20 07:57 Toxic Granulation Not Reportable 06/12/20 07:57 Toxic Vacuolation Not Reportable 06/12/20 07:57 Dohle Bodies Not Reportable 06/12/20 07:57 Pelger-Huet Anomaly Not Reportable 06/12/20 07:57 Alice Rods Not Reportable 06/12/20 07:57 Platelet Estimate Consistent w auto 06/12/20 07:57 Clumped Platelets Not Reportable 06/12/20 07:57 Plt Clumps, EDTA Not Reportable 06/12/20 07:57 Large Platelets Not Reportable 06/12/20 07:57 Giant Platelets Not Reportable 06/12/20 07:57 Platelet Satelliting Not Reportable 06/12/20 07:57 Plt Morphology Comment Not Reportable 06/12/20 07:57 RBC Morphology Normal 06/12/20 07:57 Dimorphic RBCs Not Reportable 06/12/20 07:57 Polychromasia Not Reportable 06/12/20 07:57 Hypochromasia Not Reportable 06/12/20 07:57 Poikilocytosis Not Reportable 06/12/20 07:57 Anisocytosis Not Reportable 06/12/20 07:57 Microcytosis Not Reportable 06/12/20 07:57 Macrocytosis Not Reportable 06/12/20 07:57 Spherocytes Not Reportable 06/12/20 07:57 Pappenheimer Bodies Not Reportable 06/12/20 07:57 Sickle Cells Not Reportable 06/12/20 07:57 Target Cells Not Reportable 06/12/20 07:57 Tear Drop Cells Not Reportable 06/12/20 07:57 Ovalocytes Not Reportable 06/12/20 07:57 Helmet Cells Not Reportable 06/12/20 07:57 [place] Bodies Not Reportable 06/12/20 07:57 [place] Rings Not Reportable 06/12/20 07:57 Katja Cells Not Reportable 06/12/20 07:57 Bite Cells Not Reportable 06/12/20 07:57 Crenated Cell Not Reportable 06/12/20 07:57 Elliptocytes Not Reportable 06/12/20 07:57 Acanthocytes (Spur) Not Reportable 06/12/20 07:57 Rouleaux Not Reportable 06/12/20 07:57 Hemoglobin C Crystals Not Reportable 06/12/20 07:57 Schistocytes Not Reportable 06/12/20 07:57 Malaria parasites Not Reportable 06/12/20 07:57 Abhinav Bodies Not Reportable 06/12/20 07:57 Hem Pathologist Commnt No 06/12/20 07:57 PT 12.5 Sec. (12.2-14.9) 06/08/20 08:10 INR 0.94 (0.87-1.13) 06/08/20 08:10 Sodium 140 mmol/L (137-145) 06/14/20 04:56 Potassium 4.0 mmol/L (3.6-5.0) 06/14/20 04:56 Chloride 104.6 mmol/L (98-107) 06/14/20 04:56 Carbon Dioxide 24 mmol/L (22-30) 06/14/20 04:56 Anion Gap 15 mmol/L 06/14/20 04:56 BUN 11 mg/dL (9-20) 06/14/20 04:56 Creatinine 0.7 mg/dL (0.8-1.3) L 06/14/20 04:56 Estimated GFR > 60 ml/min 06/14/20 04:56 BUN/Creatinine Ratio 16 % 06/14/20 04:56 Glucose 89 mg/dL (75-100) 06/14/20 04:56 Calcium 8.7 mg/dL (8.4-10.2) 06/14/20 04:56 C-Reactive Protein 2.60 mg/dL (0.00-1.30) H 06/09/20 08:10 Nasal Screen MRSA (PCR) Positive (Negative) 06/08/20 Unknown Vancomycin Trough 11.3 ug/mL (5.0-20.0) 06/10/20 07:23 Microbiology: Microbiology 06/08/20 16:19 Peripheral/Venous Blood Culture - Final NO GROWTH AFTER 5 DAYS 06/08/20 16:19 Peripheral/Venous Blood Culture - Final NO GROWTH AFTER 5 DAYS 06/11/20 Unknown Finger - Right Middle Anaerobic Culture - Preliminary 06/11/20 Unknown Hand - Right Surgical Culture - Final Methicillin Resist S. Aureus Womack/IV: Voiding Method Urinal Active Medications - Current Medications Current Medications: Generic Name Dose Route Start Last Admin Trade Name Freq PRN Reason Stop Dose Admin Acetaminophen 650 mg 06/07/20 22:01 Acetaminophen 325 Mg Tab PO Q4H PRN Pain MILD(1-3)/Fever >100.5/HILL Celecoxib 200 mg 06/08/20 13:00 06/13/20 21:00 Celecoxib 200 Mg Cap PO 200 mg BID [facility] Administration Heparin Sodium (Porcine) 5,000 unit 06/14/20 22:00 Heparin 5,000 Unit/1 Ml Vial SUB-Q BID [facility] Hydroxychloroquine Sulfate 200 mg 06/08/20 13:00 06/13/20 21:00 Hydroxychloroquine 200 Mg Tab PO 200 mg BID LEANDRO Administration Vancomycin HCl 1,250 mg/ 275 mls @ 166.667 mls/hr 06/09/20 06:00 06/14/20 06:08 Sodium Chloride IV 166.667 mls/hr Q12H [facility] Administration Magnesium Hydroxide 30 ml 06/07/20 22:01 Magnesium Hydroxide (Mom) Oral Liqd Udc PO Q4H PRN Constipation Miscellaneous Medication 50 mg 06/15/20 10:00 Etanercept [Enbrel Sureclick] SQ QWEEK [facility] Morphine Sulfate 3 mg 06/08/20 16:43 06/12/20 20:37 Morphine 2 Mg/1 Ml Inj IV 3 mg Q4H PRN Administration Pain , Severe (7-10) Ondansetron HCl 4 mg 06/07/20 22:01 Ondansetron 4 Mg/2 Ml Inj IV Q8H PRN Nausea And Vomiting Oxycodone/Acetaminophen 1 tab 06/08/20 16:43 06/14/20 06:21 Oxycodone /Acetaminophen 5-325mg Tab PO 1 tab Q6H PRN Administration Pain, Moderate (4-6) Prednisone 10 mg 05/03/21 13:00 06/13/20 21:00 Prednisone 10 Mg Tab PO 10 mg BID LEANDRO Administration Sodium Chloride 10 ml 06/08/20 10:00 06/13/20 21:01 Sodium Chloride 0.9% 10 Ml Flush Syringe IV 10 ml BID LEANDRO Administration Sodium Chloride 10 ml 06/07/20 22:01 Sodium Chloride 0.9% 10 Ml Flush Syringe IV PRN PRN LINE FLUSH Nutrition/Malnutrition Assess - Dietary Evaluation Nutrition/Malnutrition Findings: Nutrition Notes Start: 06/08/20 11:47 Freq: Status: Active Protocol: Document 06/12/20 10:58 (Rec: 06/12/20 10:59 [id number]) Nutrition Notes Need for Assessment generated from: LOS Initial or Follow up Brief Note Subjective/Other Information Screen for LOS. Pt reports eating 100% of meals. Nutrition Intervention Revisit per MD consult or patient Sign Off request:
[2020-06-14] MEDS: predniSONE 10 MG TAB PO SCH ×2 (09:28→21:01)
[2020-06-14] MEDS: CELECOXIB 200 MG CAP PO SCH ×2 (09:28→21:01)
[2020-06-14] MEDS: HYDROXYCHLOROQUINE 200 MG TAB PO SCH ×2 (09:28→21:02)
--- NOTE | 2020-06-14 10:09 | XRay Report ---
RIGHT RIBS 2 VIEWS WITH PA CHEST INDICATION / CLINICAL INFORMATION: right lateral rib tenderness. COMPARISON: 10/28/2017 and chest radiograph FINDINGS: RIBS: Healing phase versus remote, age-indeterminate fractures involving the lateral fourth-sixth rig ht ribs. No significant displacement. CHEST: Mediastinum and hilar contours demonstrate no acute abnormality. 2.4 cm nodular density in the left upper lung. Consider further evaluation with dedicated CT chest. No acute airspace disease. No pneumothorax. Signer Name: Myron Morel MD Signed: 06/14/2020 10:04 AM Workstation Name: [id number]
[2020-06-14] MEDS ORDERED: SODIUM CHLORIDE IRRI 500 ML 500 ML IR ONE (11:51)
[2020-06-14] MEDS: MORPHINE 2 MG/1 ML INJ IV PRN (12:43)
[2020-06-14] MEDS ORDERED: SODIUM CHLORIDE 0.9% IRR 500 ML BOTTLE IR ONE (12:45)
--- NOTE | 2020-06-14 21:22 | Progress Note ---
Assessment and Plan continue IVAB's and observation Subjective Date of service: 06/14/20 Objective Vital signs: Vital Signs - 12hr 06/14/20 06/14/20 06/14/20 10:00 11:09 19:30 Temperature 98.8 F Pulse Rate 99 H Respiratory 18 18 18 Rate Blood Pressure 139/85 O2 Sat by Pulse 97 Oximetry 06/14/20 21:01 Temperature Pulse Rate Respiratory 18 Rate Blood Pressure O2 Sat by Pulse Oximetry Narrative Exam: right hand - dressings removed, less swelling, minimal redness, no palmar tenderness noted, martha drain intact - Labs CBC & BMP: 06/14/20 04:56 06/14/20 04:56 Labs: Abnormal lab results 06/14/20 06/14/20 Range/Units 04:56 04:56 WBC 14.6 H (4.5-11.0) K/mm3 MCV 95 H (84-94) fl Creatinine 0.7 L (0.8-1.3) mg/dL
[2020-06-15] MEDS: VANCOMYCIN 1,250 MG in SODIUM CHLORIDE 0.9% 250ML 250 ML IV SCH ×2 (05:01→17:11)
[2020-06-15] MEDS ORDERED: ETANERCEPT 50 MG/ML SQ SCH (10:00)
[2020-06-15] MEDS: predniSONE 10 MG TAB PO SCH (10:15)
[2020-06-15] MEDS: CELECOXIB 200 MG CAP PO SCH ×2 (10:15→21:24)
[2020-06-15] MEDS: HYDROXYCHLOROQUINE 200 MG TAB PO SCH ×2 (10:15→21:24)
[2020-06-15] MEDS: HEPARIN 5,000 UNIT/1 ML VIAL SUB-Q SCH ×3 (10:15→21:25)
--- NOTE | 2020-06-15 10:24 | Cat Scan Report ---
CT CHEST WITH CONTRAST INDICATION / CLINICAL INFORMATION: MAIN. TECHNIQUE: Axial CT images were obtained through the chest after IV contrast. All CT scans at this location are performed using CT dose reduction for ALARA by means of automated exposure control. COMPARISON: 10/28/2017 FINDINGS: Emphysematous changes seen within the lungs. Minimal atelectasis in the lung bases. No dominant nodul ar mass is seen. Some chronic interstitial change in bilateral lungs. Atherosclerotic calcification t hroughout the aorta and coronary vessels. Visualized portions of the upper abdomen appear normal. Rig ht renal cysts suggested with hypodensity noted degenerative changes seen throughout spine IMPRESSION: 1. No dominant nodule or mass. Emphysematous change with chronic interstitial change within the lungs . Signer Name: Chuck Samaniego MD Signed: 06/15/2020 10:19 AM Workstation Name: [id number]
[2020-06-15] MEDS: oxyCODONE /ACETAMINOPHEN 5-325MG TAB PO PRN ×2 (13:40→19:49)
--- NOTE | 2020-06-15 13:57 | Progress Note ---
Assessment and Plan Assessment and plan: Assessment and Plan 64-year-old male with rheumatoid arthritis for which he takes celecoxib and prednisone twice daily for the last several years was admitted to the hospital with worsening pain and swelling of his right middle finger. X-ray here shows findings concerning for possible osteomyelitis. -- Osteomyelitis of finger of right hand Status post incision and debridement on 06/12/2019 by orthopedic surgery Wound cultures positive for MRSA Continue vancomycin Patient will need at least 6 weeks of IV antibiotics Patient scheduled to go for dressing change under anesthesia on 06/15 or 06/16 -- Leukocytosis with sepsis, POA This is secondary to the underlying right middle finger infection. Cont vancomycin for MRSA --Right-sided rib fractures 4 through 6 Chest x-ray reviewed, remote to currently healing rib fractures Pain control for now --2.5 cm left lung nodule? Seen on chest x-ray CT of the chest does not show any lung nodule --Rheumatoid arthritis, celecoxib and prednisone twice daily -- DVT prophylaxis Patient placed on sequential compression device. -- Full code status Disposition: Dressing change under anesthesia today or tomorrow. After which, patient will need 6 weeks of IV antibiotics. History Interval history: Daily clinical course: 06/08/20: Continue empiric antibiotics per ID recommendation, as needed pain management: Wait for orthopedic recommendation and evaluation 06/09: Continue empiric antibiotics, await for orthopedics evaluation, ordered for right hand MRI 06/10; planned for I and D tomorrow, continue empiric antibiotic, follow clinically. Patient might need long-term IV antibiotics, will follow ID recommendation 06/11: Continue IV antibiotics, plan for I&D today. Will follow surgical culture, ID following 06/12: Patient status post I&D, no complaints. No fevers or chills. Tolerating diet. Pain is controlled. 06/13: Patient was complaining of swelling in his right hand. States that the bandage was too tight, loosen the elder bandage a bit which gave him some relief. Dressings were not removed. 06/14: Patient doing well, complains of right sided rib pain. Patient did not fall. No fevers or chills. And with less swelling. Anticipate dressing change today. 06/15: Patient without any complaints. No fevers or chills. Pain in right chest controlled Hospitalist Physical - Physical exam Narrative exam: General appearance no acute distress, well-nourished EENT: PERRL, EOM intact, hearing intact, clear oral mucosa, dentition normal Neck: Present: supple, normal ROM Respiratory: bilateral: CTA, negative: rales, rhonchi, wheezing Cardiovascular: Regular rate/rhythm, Normal S1 & S2. No gallop, rub Extremities: Right middle finger Elder bandage, less swelling in right hand Abdominal: soft, non-tender, non-distended, normal bowel sounds MSK: Right-sided ribs with tenderness to palpation, no ecchymosis or bruising Integumentary: Present: clear, warm, dry Psychiatric: appropriate mood/affect, intact judgment & insight Neurologic: CNII-XII intact, moves all extremities - Constitutional Vitals: Temp Pulse Resp BP Pulse Ox 98.1 F 103 H 16 138/90 95 06/15/20 04:31 06/15/20 04:31 06/15/20 04:31 06/15/20 04:31 06/15/20 04:31 General appearance: Present: no acute distress, well-nourished Results - Labs CBC & Chem 7: 06/14/20 04:56 06/14/20 04:56 Labs: Laboratory Last Values WBC 14.6 K/mm3 (4.5-11.0) H 06/14/20 04:56 RBC 3.88 M/mm3 (3.65-5.03) 06/14/20 04:56 Hgb 12.0 gm/dl (11.8-15.2) 06/14/20 04:56 Hct 36.9 % (35.5-45.6) 06/14/20 04:56 MCV 95 fl (84-94) H 06/14/20 04:56 MCH 31 pg (28-32) 06/14/20 04:56 MCHC 32 % (32-34) 06/14/20 04:56 RDW 13.7 % (13.2-15.2) 06/14/20 04:56 Plt Count 288 K/mm3 (140-440) 06/14/20 04:56 Lymph % (Auto) 13.8 % (13.4-35.0) 06/08/20 08:10 [place] % (Auto) 10.7 % (0.0-7.3) H 06/08/20 08:10 Eos % (Auto) 0.7 % (0.0-4.3) 06/08/20 08:10 Baso % (Auto) 0.4 % (0.0-1.8) 06/08/20 08:10 Lymph # (Auto) 2.6 K/mm3 (1.2-5.4) 06/08/20 08:10 [place] # (Auto) 2.0 K/mm3 (0.0-0.8) H 06/08/20 08:10 Eos # (Auto) 0.1 K/mm3 (0.0-0.4) 06/08/20 08:10 Baso # (Auto) 0.1 K/mm3 (0.0-0.1) 06/08/20 08:10 Add Manual Diff Complete 06/12/20 07:57 Total Counted 100 06/12/20 07:57 Seg Neutrophils % 74.4 % (40.0-70.0) H 06/08/20 08:10 Seg Neuts % (Manual) 79.0 % (40.0-70.0) H 06/12/20 07:57 Band Neutrophils % 1.0 % 06/12/20 07:57 Lymphocytes % (Manual) 10.0 % (13.4-35.0) L 06/12/20 07:57 Monocytes % (Manual) 10.0 % (0.0-7.3) H 06/12/20 07:57 Eosinophils % (Manual) 1.0 % (0.0-4.3) 06/07/20 19:23 Nucleated RBC % Not Reportable 06/12/20 07:57 Seg Neutrophils # 13.9 K/mm3 (1.8-7.7) H 06/08/20 08:10 Seg Neutrophils # Man 12.6 K/mm3 (1.8-7.7) H 06/12/20 07:57 Band Neutrophils # 0.2 K/mm3 06/12/20 07:57 Lymphocytes # (Manual) 1.6 K/mm3 (1.2-5.4) 06/12/20 07:57 Abs React Lymphs (Man) 0.0 K/mm3 06/12/20 07:57 Monocytes # (Manual) 1.6 K/mm3 (0.0-0.8) H 06/12/20 07:57 Eosinophils # (Manual) 0.0 K/mm3 (0.0-0.4) 06/12/20 07:57 Basophils # (Manual) 0.0 K/mm3 (0.0-0.1) 06/12/20 07:57 Metamyelocytes # 0.0 K/mm3 06/12/20 07:57 Myelocytes # 0.0 K/mm3 06/12/20 07:57 Promyelocytes # 0.0 K/mm3 06/12/20 07:57 Blast Cells # 0.0 K/mm3 06/12/20 07:57 WBC Morphology Not Reportable 06/12/20 07:57 Hypersegmented Neuts Not Reportable 06/12/20 07:57 Hyposegmented Neuts Not Reportable 06/12/20 07:57 Hypogranular Neuts Not Reportable 06/12/20 07:57 Smudge Cells Not Reportable 06/12/20 07:57 Toxic Granulation Not Reportable 06/12/20 07:57 Toxic Vacuolation Not Reportable 06/12/20 07:57 Dohle Bodies Not Reportable 06/12/20 07:57 Pelger-Huet Anomaly Not Reportable 06/12/20 07:57 Alice Rods Not Reportable 06/12/20 07:57 Platelet Estimate Consistent w auto 06/12/20 07:57 Clumped Platelets Not Reportable 06/12/20 07:57 Plt Clumps, EDTA Not Reportable 06/12/20 07:57 Large Platelets Not Reportable 06/12/20 07:57 Giant Platelets Not Reportable 06/12/20 07:57 Platelet Satelliting Not Reportable 06/12/20 07:57 Plt Morphology Comment Not Reportable 06/12/20 07:57 RBC Morphology Normal 06/12/20 07:57 Dimorphic RBCs Not Reportable 06/12/20 07:57 Polychromasia Not Reportable 06/12/20 07:57 Hypochromasia Not Reportable 06/12/20 07:57 Poikilocytosis Not Reportable 06/12/20 07:57 Anisocytosis Not Reportable 06/12/20 07:57 Microcytosis Not Reportable 06/12/20 07:57 Macrocytosis Not Reportable 06/12/20 07:57 Spherocytes Not Reportable 06/12/20 07:57 Pappenheimer Bodies Not Reportable 06/12/20 07:57 Sickle Cells Not Reportable 06/12/20 07:57 Target Cells Not Reportable 06/12/20 07:57 Tear Drop Cells Not Reportable 06/12/20 07:57 Ovalocytes Not Reportable 06/12/20 07:57 Helmet Cells Not Reportable 06/12/20 07:57 [place] Bodies Not Reportable 06/12/20 07:57 [place] Rings Not Reportable 06/12/20 07:57 Katja Cells Not Reportable 06/12/20 07:57 Bite Cells Not Reportable 06/12/20 07:57 Crenated Cell Not Reportable 06/12/20 07:57 Elliptocytes Not Reportable 06/12/20 07:57 Acanthocytes (Spur) Not Reportable 06/12/20 07:57 Rouleaux Not Reportable 06/12/20 07:57 Hemoglobin C Crystals Not Reportable 06/12/20 07:57 Schistocytes Not Reportable 06/12/20 07:57 Malaria parasites Not Reportable 06/12/20 07:57 Abhinav Bodies Not Reportable 06/12/20 07:57 Hem Pathologist Commnt No 06/12/20 07:57 PT 12.5 Sec. (12.2-14.9) 06/08/20 08:10 INR 0.94 (0.87-1.13) 06/08/20 08:10 Sodium 140 mmol/L (137-145) 06/14/20 04:56 Potassium 4.0 mmol/L (3.6-5.0) 06/14/20 04:56 Chloride 104.6 mmol/L (98-107) 06/14/20 04:56 Carbon Dioxide 24 mmol/L (22-30) 06/14/20 04:56 Anion Gap 15 mmol/L 06/14/20 04:56 BUN 11 mg/dL (9-20) 06/14/20 04:56 Creatinine 0.7 mg/dL (0.8-1.3) L 06/14/20 04:56 Estimated GFR > 60 ml/min 06/14/20 04:56 BUN/Creatinine Ratio 16 % 06/14/20 04:56 Glucose 89 mg/dL (75-100) 06/14/20 04:56 Calcium 8.7 mg/dL (8.4-10.2) 06/14/20 04:56 C-Reactive Protein 2.60 mg/dL (0.00-1.30) H 06/09/20 08:10 Nasal Screen MRSA (PCR) Positive (Negative) 06/08/20 Unknown Vancomycin Trough 11.3 ug/mL (5.0-20.0) 06/10/20 07:23 Womack/IV: Voiding Method Toilet Active Medications - Current Medications Current Medications: Generic Name Dose Route Start Last Admin Trade Name Freq PRN Reason Stop Dose Admin Acetaminophen 650 mg 06/07/20 22:01 Acetaminophen 325 Mg Tab PO Q4H PRN Pain MILD(1-3)/Fever >100.5/HILL Celecoxib 200 mg 06/08/20 13:00 06/15/20 10:15 Celecoxib 200 Mg Cap PO 200 mg BID LEANDRO Administration Heparin Sodium (Porcine) 5,000 unit 06/14/20 22:00 06/15/20 10:20 Heparin 5,000 Unit/1 Ml Vial SUB-Q Not Given BID [facility] Hydroxychloroquine Sulfate 200 mg 06/08/20 13:00 06/15/20 10:15 Hydroxychloroquine 200 Mg Tab PO 200 mg BID LEANDRO Administration Vancomycin HCl 1,250 mg/ 275 mls @ 166.667 mls/hr 06/09/20 06:00 06/15/20 05:01 Sodium Chloride IV 166.667 mls/hr Q12H LEANDRO Administration Magnesium Hydroxide 30 ml 06/07/20 22:01 Magnesium Hydroxide (Mom) Oral Liqd Udc PO Q4H PRN Constipation Miscellaneous Medication 50 mg 06/15/20 10:00 Etanercept [Enbrel Sureclick] SQ QWEEK [facility] Morphine Sulfate 3 mg 06/08/20 16:43 06/14/20 12:43 Morphine 2 Mg/1 Ml Inj IV 3 mg Q4H PRN Administration Pain , Severe (7-10) Ondansetron HCl 4 mg 06/07/20 22:01 Ondansetron 4 Mg/2 Ml Inj IV Q8H PRN Nausea And Vomiting Oxycodone/Acetaminophen 1 tab 06/08/20 16:43 06/15/20 13:40 Oxycodone /Acetaminophen 5-325mg Tab PO 1 tab Q6H PRN Administration Pain, Moderate (4-6) Prednisone 10 mg 06/08/20 13:00 06/15/20 10:15 Prednisone 10 Mg Tab PO 10 mg BID LEANDRO Administration Sodium Chloride 10 ml 06/08/20 10:00 06/15/20 10:15 Sodium Chloride 0.9% 10 Ml Flush Syringe IV 10 ml BID LEANDRO Administration Sodium Chloride 10 ml 06/07/20 22:01 Sodium Chloride 0.9% 10 Ml Flush Syringe IV PRN PRN LINE FLUSH Nutrition/Malnutrition Assess - Dietary Evaluation Nutrition/Malnutrition Findings: Nutrition Notes Start: 06/08/20 11:47 Freq: Status: Active Protocol: Document 06/12/20 10:58 (Rec: 06/12/20 10:59 [id number]) Nutrition Notes Need for Assessment generated from: LOS Initial or Follow up Brief Note Subjective/Other Information Screen for LOS. Pt reports eating 100% of meals. Nutrition Intervention Revisit per MD consult or patient Sign Off request:
[2020-06-15 14:29] LABS: Hematocrit 38.6 % (35.5-45.6); Hemoglobin 12.6 gm/dl (11.8-15.2); Mean Corpuscular HGB Conc 33 % (32-34); Mean Corpuscular Volume 94 fl (84-94); Platelet Count 307 K/mm3 (140-440); Red Blood Count 4.12 M/mm3 (3.65-5.03); Red Cell Distribution Width 13.8 % (13.2-15.2)
[2020-06-15 14:43] LABS: BUN/Creatinine Ratio 19; Blood Urea Nitrogen 15 mg/dL (9-20); Calcium 8.9 mg/dL (8.4-10.2); Hemolysis Index 9
[2020-06-15] MEDS ORDERED: POTASSIUM CHLORIDE ER 20 MEQ TAB PO NR (16:07)
--- NOTE | 2020-06-15 17:44 | Progress Note ---
Assessment and Plan Cultures: 06/08/2020 blood culture: no growth 06/11/2020 OR culture R finger: MRSA A/P: 64-year-old male with rheumatoid arthritis with: #Right middle finger cellulitis, flexor tenosynovitis with associated osteomyelitis: No trauma. Xray and MRI concerning for osteomyelitis. s/p I&D by orthopedics on 06/11/2020. CRP 2.9. #Rheumatoid arthritis, immunocompromised host: Has been taking chronic steroids in addition to celecoxib. He has not taken Enbrel yet, recently was prescribed to him. Recs: -Monitor finger pain, not controlled -continue IV vancomycin -discussed need for 6 weeks of culture directed IV antibiotic therapy, would prefer once weekly abx if possible. Referral for weekly Oritavancin sent to [facility], await insurance approval, probably by Monday to discharge once pain is controlled Shantal Freeman MD [facility] ([facility]) Office [phone] Subjective Date of service: 06/15/20 Principal diagnosis: Finger osteomyelitis Interval history: Complaining of 10 out of 10 finger pain. No fever. Objective - Exam Narrative Exam: General appearance: Alert in NAD pleasant Eyes: anicteric sclerae, moist conjunctivae; no lid-lag; PERRLA HENT: Normocephalic, Atraumatic; normal external ears, nares open, oropharynx clear with moist mucous membranes and no oral thrush Neck: supple, tracheal midline, no JVD Lungs: CTA, with normal respiratory effort and no intercostal retractions CV: RRR no murmur Abdomen: Soft, non-tender; no masses or hepatosplenomegaly Extremities: Right middle finger with dressing, tenderness Skin: No rash. Psych: no agitated Neuro: alert and oriented x 3. Moving all extermities - Constitutional Vitals: Vital Signs Temp Pulse Resp BP Pulse Ox 98.1 F 103 H 16 138/90 95 06/15/20 04:31 06/15/20 04:31 06/15/20 04:31 06/15/20 04:31 06/15/20 04:31 Temperature -Last 24 Hours Temperature 98.1 F Temperature 97.9 F - Labs CBC & Chem 7: 06/15/20 13:51 06/15/20 13:51 Labs: Abnormal lab results 06/15/20 06/15/20 Range/Units 13:51 13:51 WBC 12.6 H (4.5-11.0) K/mm3 Potassium 3.2 L (3.6-5.0) mmol/L Glucose 115 H (75-100) mg/dL
[2020-06-16] MEDS: oxyCODONE /ACETAMINOPHEN 5-325MG TAB PO PRN ×2 (05:35→13:02)
[2020-06-16] MEDS: VANCOMYCIN 1,250 MG in SODIUM CHLORIDE 0.9% 250ML 250 ML IV SCH ×2 (05:36→17:41)
[2020-06-16] MEDS: predniSONE 10 MG TAB PO SCH (09:16)
[2020-06-16] MEDS: CELECOXIB 200 MG CAP PO SCH ×2 (09:16→21:29)
[2020-06-16] MEDS: HYDROXYCHLOROQUINE 200 MG TAB PO SCH ×2 (09:16→21:29)
[2020-06-16] MEDS: HEPARIN 5,000 UNIT/1 ML VIAL SUB-Q SCH ×2 (09:24→21:30)
--- NOTE | 2020-06-16 10:02 | Progress Note ---
Assessment and Plan Assessment and plan: Right middle finger cellulitis Right flexor tenosynovitis with associated osteomyelitis Sepsis. Present on admission. Etiology secondary to above. Rheumatoid arthritis. Daily clinical course: 06/08/20: Continue empiric antibiotics per ID recommendation, as needed pain management: Wait for orthopedic recommendation and evaluation 06/09: Continue empiric antibiotics, await for orthopedics evaluation, ordered for right hand MRI 06/10; planned for I and D tomorrow, continue empiric antibiotic, follow c linically. Patient might need long-term IV antibiotics, will follow ID recommendation 06/11: Continue IV antibiotics, plan for I&D today. Will follow surgical culture, ID following 06/12: Patient status post I&D, no complaints. No fevers or chills. Tolerating diet. Pain is controlled. 06/13: Patient was complaining of swelling in his right hand. States that the bandage was too tight, loosen the nicolas bandage a bit which gave him some relief. Dressings were not removed. 06/14: Patient doing well, complains of right sided rib pain. Patient did not fall. No fevers or chills. And with less swelling. Anticipate dressing change today. 06/15: Patient without any complaints. No fevers or chills. Pain in right chest controlled 06/16/2020. Await arrangements for antibiotics per ID recommendations, patient will need 6 weeks of IV antibiotics. History Interval history: No new issues overnight. Hospitalist Physical - Constitutional Vitals: Temp Pulse Resp BP Pulse Ox 98.4 F 95 H 18 139/90 97 06/16/20 04:58 06/16/20 04:58 06/16/20 04:58 06/16/20 04:58 06/16/20 04:58 General appearance: Present: no acute distress, well-nourished - EENT Eyes: Present: PERRL, EOM intact ENT: hearing intact, clear oral mucosa, dentition normal - Neck Neck: Present: supple, normal ROM - Respiratory Respiratory effort: normal Respiratory: bilateral: CTA - Cardiovascular Rhythm: regular Heart Sounds: Present: S1 & S2. Absent: gallop, rub - Extremities Extremities: no ischemia, No edema, Full ROM - Abdominal General gastrointestinal: soft, non-tender, non-distended, normal bowel sounds - Integumentary Integumentary: Present: clear, warm, dry - Neurologic Neurologic: CNII-XII intact, moves all extremities Results - Labs CBC & Chem 7: 06/15/20 13:51 06/15/20 13:51 Labs: Laboratory Last Values WBC 12.6 K/mm3 (4.5-11.0) H 06/15/20 13:51 RBC 4.12 M/mm3 (3.65-5.03) 06/15/20 13:51 Hgb 12.6 gm/dl (11.8-15.2) 06/15/20 13:51 Hct 38.6 % (35.5-45.6) 06/15/20 13:51 MCV 94 fl (84-94) 06/15/20 13:51 MCH 31 pg (28-32) 06/15/20 13:51 MCHC 33 % (32-34) 06/15/20 13:51 RDW 13.8 % (13.2-15.2) 06/15/20 13:51 Plt Count 307 K/mm3 (140-440) 06/15/20 13:51 Lymph % (Auto) 13.8 % (13.4-35.0) 06/08/20 08:10 [place] % (Auto) 10.7 % (0.0-7.3) H 06/08/20 08:10 Eos % (Auto) 0.7 % (0.0-4.3) 06/08/20 08:10 Baso % (Auto) 0.4 % (0.0-1.8) 06/08/20 08:10 Lymph # (Auto) 2.6 K/mm3 (1.2-5.4) 06/08/20 08:10 [place] # (Auto) 2.0 K/mm3 (0.0-0.8) H 06/08/20 08:10 Eos # (Auto) 0.1 K/mm3 (0.0-0.4) 06/08/20 08:10 Baso # (Auto) 0.1 K/mm3 (0.0-0.1) 06/08/20 08:10 Add Manual Diff Complete 06/12/20 07:57 Total Counted 100 06/12/20 07:57 Seg Neutrophils % 74.4 % (40.0-70.0) H 06/08/20 08:10 Seg Neuts % (Manual) 79.0 % (40.0-70.0) H 06/12/20 07:57 Band Neutrophils % 1.0 % 06/12/20 07:57 Lymphocytes % (Manual) 10.0 % (13.4-35.0) L 06/12/20 07:57 Monocytes % (Manual) 10.0 % (0.0-7.3) H 06/12/20 07:57 Eosinophils % (Manual) 1.0 % (0.0-4.3) 06/07/20 19:23 Nucleated RBC % Not Reportable 06/12/20 07:57 Seg Neutrophils # 13.9 K/mm3 (1.8-7.7) H 06/08/20 08:10 Seg Neutrophils # Man 12.6 K/mm3 (1.8-7.7) H 06/12/20 07:57 Band Neutrophils # 0.2 K/mm3 06/12/20 07:57 Lymphocytes # (Manual) 1.6 K/mm3 (1.2-5.4) 06/12/20 07:57 Abs React Lymphs (Man) 0.0 K/mm3 06/12/20 07:57 Monocytes # (Manual) 1.6 K/mm3 (0.0-0.8) H 06/12/20 07:57 Eosinophils # (Manual) 0.0 K/mm3 (0.0-0.4) 06/12/20 07:57 Basophils # (Manual) 0.0 K/mm3 (0.0-0.1) 06/12/20 07:57 Metamyelocytes # 0.0 K/mm3 06/12/20 07:57 Myelocytes # 0.0 K/mm3 06/12/20 07:57 Promyelocytes # 0.0 K/mm3 06/12/20 07:57 Blast Cells # 0.0 K/mm3 06/12/20 07:57 WBC Morphology Not Reportable 06/12/20 07:57 Hypersegmented Neuts Not Reportable 06/12/20 07:57 Hyposegmented Neuts Not Reportable 06/12/20 07:57 Hypogranular Neuts Not Reportable 06/12/20 07:57 Smudge Cells Not Reportable 06/12/20 07:57 Toxic Granulation Not Reportable 06/12/20 07:57 Toxic Vacuolation Not Reportable 06/12/20 07:57 Dohle Bodies Not Reportable 06/12/20 07:57 Pelger-Huet Anomaly Not Reportable 06/12/20 07:57 Alice Rods Not Reportable 06/12/20 07:57 Platelet Estimate Consistent w auto 06/12/20 07:57 Clumped Platelets Not Reportable 06/12/20 07:57 Plt Clumps, EDTA Not Reportable 06/12/20 07:57 Large Platelets Not Reportable 06/12/20 07:57 Giant Platelets Not Reportable 06/12/20 07:57 Platelet Satelliting Not Reportable 06/12/20 07:57 Plt Morphology Comment Not Reportable 06/12/20 07:57 RBC Morphology Normal 06/12/20 07:57 Dimorphic RBCs Not Reportable 06/12/20 07:57 Polychromasia Not Reportable 06/12/20 07:57 Hypochromasia Not Reportable 06/12/20 07:57 Poikilocytosis Not Reportable 06/12/20 07:57 Anisocytosis Not Reportable 06/12/20 07:57 Microcytosis Not Reportable 06/12/20 07:57 Macrocytosis Not Reportable 06/12/20 07:57 Spherocytes Not Reportable 06/12/20 07:57 Pappenheimer Bodies Not Reportable 06/12/20 07:57 Sickle Cells Not Reportable 06/12/20 07:57 Target Cells Not Reportable 06/12/20 07:57 Tear Drop Cells Not Reportable 06/12/20 07:57 Ovalocytes Not Reportable 06/12/20 07:57 Helmet Cells Not Reportable 06/12/20 07:57 Rangel-[place] Bodies Not Reportable 06/12/20 07:57 [place] Rings Not Reportable 06/12/20 07:57 [place] Cells Not Reportable 06/12/20 07:57 Bite Cells Not Reportable 06/12/20 07:57 Crenated Cell Not Reportable 06/12/20 07:57 Elliptocytes Not Reportable 06/12/20 07:57 Acanthocytes (Spur) Not Reportable 06/12/20 07:57 Rouleaux Not Reportable 06/12/20 07:57 Hemoglobin C Crystals Not Reportable 06/12/20 07:57 Schistocytes Not Reportable 06/12/20 07:57 Malaria parasites Not Reportable 06/12/20 07:57 Abhinav Bodies Not Reportable 06/12/20 07:57 Hem Pathologist Commnt No 06/12/20 07:57 PT 12.5 Sec. (12.2-14.9) 06/08/20 08:10 INR 0.94 (0.87-1.13) 06/08/20 08:10 Sodium 139 mmol/L (137-145) 06/15/20 13:51 Potassium 3.2 mmol/L (3.6-5.0) L 06/15/20 13:51 Chloride 102.9 mmol/L (98-107) 06/15/20 13:51 Carbon Dioxide 26 mmol/L (22-30) 06/15/20 13:51 Anion Gap 13 mmol/L 06/15/20 13:51 BUN 15 mg/dL (9-20) 06/15/20 13:51 Creatinine 0.8 mg/dL (0.8-1.3) 06/15/20 13:51 Estimated GFR > 60 ml/min 06/15/20 13:51 BUN/Creatinine Ratio 19 % 06/15/20 13:51 Glucose 115 mg/dL (75-100) H 06/15/20 13:51 Calcium 8.9 mg/dL (8.4-10.2) 06/15/20 13:51 C-Reactive Protein 0.60 mg/dL (0.00-1.30) 06/15/20 12:00 Nasal Screen MRSA (PCR) Positive (Negative) 06/08/20 Unknown Vancomycin Trough 11.3 ug/mL (5.0-20.0) 06/10/20 07:23 Microbiology: Microbiology 06/11/20 Unknown Finger - Right Middle Anaerobic Culture - Final Womack/IV: Voiding Method Toilet Active Medications - Current Medications Current Medications: Generic Name Dose Route Start Last Admin Trade Name Freq PRN Reason Stop Dose Admin Acetaminophen 650 mg 06/07/20 22:01 Acetaminophen 325 Mg Tab PO Q4H PRN Pain MILD(1-3)/Fever >100.5/HILL Celecoxib 200 mg 06/08/20 13:00 06/16/20 09:16 Celecoxib 200 Mg Cap PO 200 mg BID LEANDRO Administration Heparin Sodium (Porcine) 5,000 unit 06/14/20 22:00 06/16/20 09:24 Heparin 5,000 Unit/1 Ml Vial SUB-Q Not Given BID LEANDRO Hydroxychloroquine Sulfate 200 mg 06/08/20 13:00 06/16/20 09:16 Hydroxychloroquine 200 Mg Tab PO 200 mg BID LEANDRO Administration Vancomycin HCl 1,250 mg/ 275 mls @ 166.667 mls/hr 06/09/20 06:00 06/16/20 05:36 Sodium Chloride IV 166.667 mls/hr Q12H LEANDRO Administration Magnesium Hydroxide 30 ml 06/07/20 22:01 Magnesium Hydroxide (Mom) Oral Liqd Udc PO Q4H PRN Constipation Morphine Sulfate 3 mg 06/08/20 16:43 06/14/20 12:43 Morphine 2 Mg/1 Ml Inj IV 3 mg Q4H PRN Administration Pain , Severe (7-10) Ondansetron HCl 4 mg 06/07/20 22:01 Ondansetron 4 Mg/2 Ml Inj IV Q8H PRN Nausea And Vomiting Oxycodone/Acetaminophen 1 tab 06/08/20 16:43 06/16/20 05:35 Oxycodone /Acetaminophen 5-325mg Tab PO 1 tab Q6H PRN Administration Pain, Moderate (4-6) Prednisone 10 mg 06/16/20 10:00 06/16/20 09:16 Prednisone 10 Mg Tab PO 10 mg DAILY LEANDRO Administration Sodium Chloride 10 ml 06/08/20 10:00 06/16/20 09:17 Sodium Chloride 0.9% 10 Ml Flush Syringe IV 10 ml BID LEANDRO Administration Sodium Chloride 10 ml 06/07/20 22:01 Sodium Chloride 0.9% 10 Ml Flush Syringe IV PRN PRN LINE FLUSH Nutrition/Malnutrition Assess - Dietary Evaluation Nutrition/Malnutrition Findings: Nutrition Notes Start: 06/08/20 11:47 Freq: Status: Active Protocol: Document 06/12/20 10:58 IVAN (Rec: 06/12/20 10:59 IVAN [email or web address]) Nutrition Notes Need for Assessment generated from: LOS Initial or Follow up Brief Note Subjective/Other Information Screen for LOS. Pt reports eating 100% of meals. Nutrition Intervention Revisit per MD consult or patient Sign Off request:
[2020-06-16 14:50] LABS: Hematocrit 36.9 % (35.5-45.6); Mean Corpuscular HGB Conc 33 % (32-34); Mean Corpuscular Volume 94 fl (84-94); Platelet Count 314 K/mm3 (140-440); Red Blood Count 3.94 M/mm3 (3.65-5.03); Red Cell Distribution Width 13.4 % (13.2-15.2)
[2020-06-16 14:57] LABS: BUN/Creatinine Ratio 23; Blood Urea Nitrogen 21 mg/dL (9-20); Calcium 8.7 mg/dL (8.4-10.2); Hemolysis Index 4
--- NOTE | 2020-06-16 15:07 | Progress Note ---
Assessment and Plan Cultures: 06/08/2020 blood culture: no growth 06/11/2020 OR culture R finger: MRSA A/P: 64-year-old male with rheumatoid arthritis with: #Extensive right middle finger cellulitis, flexor tenosynovitis with associated osteomyelitis: No trauma. Xray and MRI concerning for osteomyelitis. s/p I&D by orthopedics on 06/11/2020. CRP 2.9. #Rheumatoid arthritis, immunocompromised host: Has been taking chronic steroids in addition to celecoxib. He has not taken Enbrel yet, recently was prescribed to him. Recs: -Reconsult Ortho, pain not controlled 10 of 10, D5 post op ? needs for I+D -recheck CRP -continue IV vancomycin -anticipate to discharge on weekly Oritavancin to cover 6 weeks Not ready for d/c Discussed with Dr Alex Freeman MD [facility] ([facility]) Office [phone] Subjective Date of service: 06/16/20 Principal diagnosis: Finger osteomyelitis Interval history: Patient does not feel well complaining of 10 out of 10 finger pain.. Objective - Exam Narrative Exam: General appearance: Alert in NAD pleasant Eyes: anicteric sclerae, moist conjunctivae; no lid-lag; PERRLA HENT: Normocephalic, Atraumatic; normal external ears, nares open, oropharynx clear with moist mucous membranes and no oral thrush Neck: supple, tracheal midline, no JVD Lungs: CTA, with normal respiratory effort and no intercostal retractions CV: RRR no murmur Abdomen: Soft, non-tender; no masses or hepatosplenomegaly Extremities: Right middle finger with surgical wound big drain very tender to palpation +purulence Skin: No rash. Psych: no agitated Neuro: alert and oriented x 3. Moving all extermities - Constitutional Vitals: Vital Signs Temp Pulse Resp BP Pulse Ox 98.1 F 93 H 22 135/85 94 06/16/20 11:41 06/16/20 11:41 06/16/20 11:41 06/16/20 11:41 06/16/20 11:41 Temperature -Last 24 Hours Temperature 98.1 F Temperature 98.4 F Temperature 98.8 F Temperature 98.9 F - Labs CBC & Chem 7: 06/16/20 14:06 06/16/20 14:06 Labs: Abnormal lab results 06/16/20 06/16/20 Range/Units 14:06 14:06 WBC 13.1 H (4.5-11.0) K/mm3 BUN 21 H (9-20) mg/dL
[2020-06-16] MEDS: MORPHINE 2 MG/1 ML INJ IV PRN ×2 (15:40→20:23)
--- NOTE | 2020-06-16 16:32 | Progress Note ---
Assessment and Plan continue IVAB's and observation Subjective Date of service: 06/16/20 Principal diagnosis: Finger osteomyelitis Interval history: no c/o's noted except for blood draws... Objective Vital signs: Vital Signs - 12hr 06/16/20 06/16/20 04:58 11:41 Temperature 98.4 F 98.1 F Pulse Rate 95 H 93 H Respiratory 18 22 Rate Blood Pressure 139/90 135/85 O2 Sat by Pulse 97 94 Oximetry Incision: healing, draining - Labs CBC & BMP: 06/16/20 14:06 06/16/20 14:06 Labs: Abnormal lab results 06/16/20 06/16/20 Range/Units 14:06 14:06 WBC 13.1 H (4.5-11.0) K/mm3 BUN 21 H (9-20) mg/dL
[2020-06-17] MEDS: VANCOMYCIN 1,250 MG in SODIUM CHLORIDE 0.9% 250ML 250 ML IV SCH ×2 (05:27→17:15)
[2020-06-17] MEDS: oxyCODONE /ACETAMINOPHEN 5-325MG TAB PO PRN ×3 (06:13→21:01)
[2020-06-17] MEDS: predniSONE 10 MG TAB PO SCH (09:15)
[2020-06-17] MEDS: CELECOXIB 200 MG CAP PO SCH ×2 (09:15→21:00)
[2020-06-17] MEDS: HYDROXYCHLOROQUINE 200 MG TAB PO SCH ×2 (09:15→21:00)
[2020-06-17] MEDS: HEPARIN 5,000 UNIT/1 ML VIAL SUB-Q SCH ×2 (09:17→21:46)
--- NOTE | 2020-06-17 11:51 | Progress Note ---
Assessment and Plan Assessment and plan: Right middle finger cellulitis Right flexor tenosynovitis with associated osteomyelitis Sepsis. Present on admission. Etiology secondary to above. Rheumatoid arthritis. Daily clinical course: 06/08/20: Continue empiric antibiotics per ID recommendation, as needed pain management: Wait for orthopedic recommendation and evaluation 06/09: Continue empiric antibiotics, await for orthopedics evaluation, ordered for right hand MRI 06/10; planned for I and D tomorrow, continue empiric antibiotic, follow c linically. Patient might need long-term IV antibiotics, will follow ID recommendation 06/11: Continue IV antibiotics, plan for I&D today. Will follow surgical culture, ID following 06/12: Patient status post I&D, no complaints. No fevers or chills. Tolerating diet. Pain is controlled. 06/13: Patient was complaining of swelling in his right hand. States that the bandage was too tight, loosen the nicolas bandage a bit which gave him some relief. Dressings were not removed. 06/14: Patient doing well, complains of right sided rib pain. Patient did not fall. No fevers or chills. And with less swelling. Anticipate dressing change today. 06/15: Patient without any complaints. No fevers or chills. Pain in right chest controlled 06/16/2020. Await arrangements for antibiotics per ID recommendations, patient will need 6 weeks of IV antibiotics. 06/17/2020. Patient still complains of 10/10 pain. Start Percocet and continue morphine for breakthrough pain History Interval history: No new issues overnight. Hospitalist Physical - Constitutional Vitals: Temp Pulse Resp BP Pulse Ox 98.7 F 98 H 20 139/89 99 06/17/20 05:11 06/17/20 05:11 06/17/20 05:11 06/17/20 05:11 06/17/20 05:11 General appearance: Present: no acute distress, well-nourished - EENT Eyes: Present: PERRL, EOM intact ENT: hearing intact, clear oral mucosa, dentition normal - Neck Neck: Present: supple, normal ROM - Respiratory Respiratory effort: normal Respiratory: bilateral: CTA - Cardiovascular Rhythm: regular Heart Sounds: Present: S1 & S2. Absent: gallop, rub - Extremities Extremities: no ischemia, No edema, Full ROM - Abdominal General gastrointestinal: soft, non-tender, non-distended, normal bowel sounds - Integumentary Integumentary: Present: clear, warm, dry - Neurologic Neurologic: CNII-XII intact, moves all extremities Results - Labs CBC & Chem 7: 06/16/20 14:06 06/16/20 14:06 Labs: Laboratory Last Values WBC 13.1 K/mm3 (4.5-11.0) H 06/16/20 14:06 RBC 3.94 M/mm3 (3.65-5.03) 06/16/20 14:06 Hgb 12.0 gm/dl (11.8-15.2) 06/16/20 14:06 Hct 36.9 % (35.5-45.6) 06/16/20 14:06 MCV 94 fl (84-94) 06/16/20 14:06 MCH 31 pg (28-32) 06/16/20 14:06 MCHC 33 % (32-34) 06/16/20 14:06 RDW 13.4 % (13.2-15.2) 06/16/20 14:06 Plt Count 314 K/mm3 (140-440) 06/16/20 14:06 Lymph % (Auto) 13.8 % (13.4-35.0) 06/08/20 08:10 [place] % (Auto) 10.7 % (0.0-7.3) H 06/08/20 08:10 Eos % (Auto) 0.7 % (0.0-4.3) 06/08/20 08:10 Baso % (Auto) 0.4 % (0.0-1.8) 06/08/20 08:10 Lymph # (Auto) 2.6 K/mm3 (1.2-5.4) 06/08/20 08:10 [place] # (Auto) 2.0 K/mm3 (0.0-0.8) H 06/08/20 08:10 Eos # (Auto) 0.1 K/mm3 (0.0-0.4) 06/08/20 08:10 Baso # (Auto) 0.1 K/mm3 (0.0-0.1) 06/08/20 08:10 Add Manual Diff Complete 06/12/20 07:57 Total Counted 100 06/12/20 07:57 Seg Neutrophils % 74.4 % (40.0-70.0) H 06/08/20 08:10 Seg Neuts % (Manual) 79.0 % (40.0-70.0) H 06/12/20 07:57 Band Neutrophils % 1.0 % 06/12/20 07:57 Lymphocytes % (Manual) 10.0 % (13.4-35.0) L 06/12/20 07:57 Monocytes % (Manual) 10.0 % (0.0-7.3) H 06/12/20 07:57 Eosinophils % (Manual) 1.0 % (0.0-4.3) 06/07/20 19:23 Nucleated RBC % Not Reportable 06/12/20 07:57 Seg Neutrophils # 13.9 K/mm3 (1.8-7.7) H 06/08/20 08:10 Seg Neutrophils # Man 12.6 K/mm3 (1.8-7.7) H 06/12/20 07:57 Band Neutrophils # 0.2 K/mm3 06/12/20 07:57 Lymphocytes # (Manual) 1.6 K/mm3 (1.2-5.4) 06/12/20 07:57 Abs React Lymphs (Man) 0.0 K/mm3 06/12/20 07:57 Monocytes # (Manual) 1.6 K/mm3 (0.0-0.8) H 06/12/20 07:57 Eosinophils # (Manual) 0.0 K/mm3 (0.0-0.4) 06/12/20 07:57 Basophils # (Manual) 0.0 K/mm3 (0.0-0.1) 06/12/20 07:57 Metamyelocytes # 0.0 K/mm3 06/12/20 07:57 Myelocytes # 0.0 K/mm3 06/12/20 07:57 Promyelocytes # 0.0 K/mm3 06/12/20 07:57 Blast Cells # 0.0 K/mm3 06/12/20 07:57 WBC Morphology Not Reportable 06/12/20 07:57 Hypersegmented Neuts Not Reportable 06/12/20 07:57 Hyposegmented Neuts Not Reportable 06/12/20 07:57 Hypogranular Neuts Not Reportable 06/12/20 07:57 Smudge Cells Not Reportable 06/12/20 07:57 Toxic Granulation Not Reportable 06/12/20 07:57 Toxic Vacuolation Not Reportable 06/12/20 07:57 Dohle Bodies Not Reportable 06/12/20 07:57 Pelger-Huet Anomaly Not Reportable 06/12/20 07:57 Alice Rods Not Reportable 06/12/20 07:57 Platelet Estimate Consistent w auto 06/12/20 07:57 Clumped Platelets Not Reportable 06/12/20 07:57 Plt Clumps, EDTA Not Reportable 06/12/20 07:57 Large Platelets Not Reportable 06/12/20 07:57 Giant Platelets Not Reportable 06/12/20 07:57 Platelet Satelliting Not Reportable 06/12/20 07:57 Plt Morphology Comment Not Reportable 06/12/20 07:57 RBC Morphology Normal 06/12/20 07:57 Dimorphic RBCs Not Reportable 06/12/20 07:57 Polychromasia Not Reportable 06/12/20 07:57 Hypochromasia Not Reportable 06/12/20 07:57 Poikilocytosis Not Reportable 06/12/20 07:57 Anisocytosis Not Reportable 06/12/20 07:57 Microcytosis Not Reportable 06/12/20 07:57 Macrocytosis Not Reportable 06/12/20 07:57 Spherocytes Not Reportable 06/12/20 07:57 Pappenheimer Bodies Not Reportable 06/12/20 07:57 Sickle Cells Not Reportable 06/12/20 07:57 Target Cells Not Reportable 06/12/20 07:57 Tear Drop Cells Not Reportable 06/12/20 07:57 Ovalocytes Not Reportable 06/12/20 07:57 Helmet Cells Not Reportable 06/12/20 07:57 Rangel-[place] Bodies Not Reportable 06/12/20 07:57 [place] Rings Not Reportable 06/12/20 07:57 [place] Cells Not Reportable 06/12/20 07:57 Bite Cells Not Reportable 06/12/20 07:57 Crenated Cell Not Reportable 06/12/20 07:57 Elliptocytes Not Reportable 06/12/20 07:57 Acanthocytes (Spur) Not Reportable 06/12/20 07:57 Rouleaux Not Reportable 06/12/20 07:57 Hemoglobin C Crystals Not Reportable 06/12/20 07:57 Schistocytes Not Reportable 06/12/20 07:57 Malaria parasites Not Reportable 06/12/20 07:57 Abhinav Bodies Not Reportable 06/12/20 07:57 Hem Pathologist Commnt No 06/12/20 07:57 PT 12.5 Sec. (12.2-14.9) 06/08/20 08:10 INR 0.94 (0.87-1.13) 06/08/20 08:10 Sodium 139 mmol/L (137-145) 06/16/20 14:06 Potassium 4.2 mmol/L (3.6-5.0) D 06/16/20 14:06 Chloride 104.3 mmol/L (98-107) 06/16/20 14:06 Carbon Dioxide 29 mmol/L (22-30) 06/16/20 14:06 Anion Gap 10 mmol/L 06/16/20 14:06 BUN 21 mg/dL (9-20) H 06/16/20 14:06 Creatinine 0.9 mg/dL (0.8-1.3) 06/16/20 14:06 Estimated GFR > 60 ml/min 06/16/20 14:06 BUN/Creatinine Ratio 23 % 06/16/20 14:06 Glucose 83 mg/dL (75-100) 06/16/20 14:06 Calcium 8.7 mg/dL (8.4-10.2) 06/16/20 14:06 C-Reactive Protein 0.50 mg/dL (0.00-1.30) 06/16/20 Unknown Nasal Screen MRSA (PCR) Positive (Negative) 06/08/20 Unknown Vancomycin Trough 11.3 ug/mL (5.0-20.0) 06/10/20 07:23 Womack/IV: Voiding Method Toilet Active Medications - Current Medications Current Medications: Generic Name Dose Route Start Last Admin Trade Name Freq PRN Reason Stop Dose Admin Acetaminophen 650 mg 06/07/20 22:01 Acetaminophen 325 Mg Tab PO Q4H PRN Pain MILD(1-3)/Fever >100.5/HILL Celecoxib 200 mg 06/08/20 13:00 06/17/20 09:15 Celecoxib 200 Mg Cap PO 200 mg BID LEANDRO Administration Heparin Sodium (Porcine) 5,000 unit 06/14/20 22:00 06/17/20 09:17 Heparin 5,000 Unit/1 Ml Vial SUB-Q 5,000 unit BID LEANDRO Administration Hydroxychloroquine Sulfate 200 mg 06/08/20 13:00 06/17/20 09:15 Hydroxychloroquine 200 Mg Tab PO 200 mg BID LEANDRO Administration Vancomycin HCl 1,250 mg/ 275 mls @ 166.667 mls/hr 06/09/20 06:00 06/17/20 05:27 Sodium Chloride IV 166.667 mls/hr Q12H LEANDRO Administration Magnesium Hydroxide 30 ml 06/07/20 22:01 Magnesium Hydroxide (Mom) Oral Liqd Udc PO Q4H PRN Constipation Morphine Sulfate 3 mg 06/08/20 16:43 06/16/20 20:23 Morphine 2 Mg/1 Ml Inj IV 3 mg Q4H PRN Administration Pain , Severe (7-10) Ondansetron HCl 4 mg 06/07/20 22:01 Ondansetron 4 Mg/2 Ml Inj IV Q8H PRN Nausea And Vomiting Oxycodone/Acetaminophen 1 tab 06/08/20 16:43 06/17/20 06:13 Oxycodone /Acetaminophen 5-325mg Tab PO 1 tab Q6H PRN Administration Pain, Moderate (4-6) Prednisone 10 mg 06/16/20 10:00 06/17/20 09:15 Prednisone 10 Mg Tab PO 10 mg DAILY LEANDRO Administration Sodium Chloride 10 ml 06/08/20 10:00 06/17/20 09:16 Sodium Chloride 0.9% 10 Ml Flush Syringe IV 10 ml BID LEANDRO Administration Sodium Chloride 10 ml 06/07/20 22:01 Sodium Chloride 0.9% 10 Ml Flush Syringe IV PRN PRN LINE FLUSH Nutrition/Malnutrition Assess - Dietary Evaluation Nutrition/Malnutrition Findings: Nutrition Notes Start: 06/08/20 11:47 Freq: Status: Active Protocol: Document 06/12/20 10:58 (Rec: 06/12/20 10:59 [email or web address]) Nutrition Notes Need for Assessment generated from: LOS Initial or Follow up Brief Note Subjective/Other Information Screen for LOS. Pt reports eating 100% of meals. Nutrition Intervention Revisit per MD consult or patient Sign Off request:
--- NOTE | 2020-06-17 14:36 | Progress Note ---
Assessment and Plan Cultures: 06/08/2020 blood culture: no growth 06/11/2020 OR culture R finger: MRSA A/P: 64-year-old male with rheumatoid arthritis with: #Extensive right middle finger cellulitis, flexor tenosynovitis with associated osteomyelitis: No trauma. Xray and MRI concerning for osteomyelitis. s/p I&D by orthopedics on 06/11/2020. CRP 2.9. #Rheumatoid arthritis, immunocompromised host: Has been taking chronic steroids in addition to celecoxib. He has not taken Enbrel yet, recently was prescribed to him. Recs: -Reconsult Ortho, pain not controlled 8 of 10, D6 post op -rechecked CRP which is normal -continue IV vancomycin -anticipate to discharge on weekly IV Oritavancin infusion to cover 6 weeks, patient was approved at [facility] infusion, when ready to discharge call [facility] in fusion. -Discussed with Dr. Frank, he will kindly see patient next week, if fever is not better patient may need to be seen by hand surgery Long discussion with patient he is complaining of severe finger pain and did not understand what was done during surgery, he said his finger looked even worse than before admission, is complaining of too many BP checks as well as abdominal clots for anticoagulation. Discussed with Dr Alex Freeman MD [facility] ([facility]) Office [phone] Subjective Date of service: 06/17/20 Principal diagnosis: Finger osteomyelitis Interval history: Patient is absent, complaining of 10 out of 10 pain. Pain, he is concerned that finger is now looking better, he does not want his blood pressure to be checked so often. Objective - Exam Narrative Exam: General appearance: Alert in NAD pleasant Eyes: anicteric sclerae, moist conjunctivae; no lid-lag; PERRLA HENT: Normocephalic, Atraumatic; normal external ears, nares open, oropharynx clear Neck: supple, tracheal midline, no JVD Lungs: CTA, with normal respiratory effort and no intercostal retractions CV: RRR no murmur Abdomen: Soft, non-tende Extremities: Right middle finger with surgical dressing Skin: No rash. Psych: no agitated Neuro: alert and oriented x 3. Moving all extermities - Constitutional Vitals: Vital Signs Temp Pulse Resp BP Pulse Ox 97.9 F 94 H 24 136/86 96 06/17/20 11:36 06/17/20 11:36 06/17/20 11:36 06/17/20 11:36 06/17/20 11:36 Temperature -Last 24 Hours Temperature 97.9 F Temperature 98.7 F Temperature 98.2 F Temperature 98.8 F - Labs CBC & Chem 7: 06/16/20 14:06 06/16/20 14:06 Labs: Abnormal lab results 06/16/20 06/16/20 Range/Units 14:06 14:06 WBC 13.1 H (4.5-11.0) K/mm3 BUN 21 H (9-20) mg/dL
[2020-06-18] MEDS: oxyCODONE /ACETAMINOPHEN 5-325MG TAB PO PRN ×3 (06:39→21:23)
[2020-06-18] MEDS ORDERED: MORPHINE 2 MG/1 ML INJ IV PRN (08:57)
--- NOTE | 2020-06-18 08:58 | Progress Note ---
Assessment and Plan Assessment and plan: Right middle finger cellulitis Right flexor tenosynovitis with associated osteomyelitis Sepsis. Present on admission. Etiology secondary to above. Rheumatoid arthritis. Daily clinical course: 06/08/20: Continue empiric antibiotics per ID recommendation, as needed pain management: Wait for orthopedic recommendation and evaluation 06/09: Continue empiric antibiotics, await for orthopedics evaluation, ordered for right hand MRI 06/10; planned for I and D tomorrow, continue empiric antibiotic, follow c linically. Patient might need long-term IV antibiotics, will follow ID recommendation 06/11: Continue IV antibiotics, plan for I&D today. Will follow surgical culture, ID following 06/12: Patient status post I&D, no complaints. No fevers or chills. Tolerating diet. Pain is controlled. 06/13: Patient was complaining of swelling in his right hand. States that the bandage was too tight, loosen the nicolas bandage a bit which gave him some relief. Dressings were not removed. 06/14: Patient doing well, complains of right sided rib pain. Patient did not fall. No fevers or chills. And with less swelling. Anticipate dressing change today. 06/15: Patient without any complaints. No fevers or chills. Pain in right chest controlled 06/16/2020. Await arrangements for antibiotics per ID recommendations, patient will need 6 weeks of IV antibiotics. 06/17/2020. Patient still complains of 10/10 pain. Start Percocet and continue morphine for breakthrough pain 06/18/2020. We will decrease the frequency of the IV morphine and increase Percocet to 2 tabs every 4 hours as needed. Consider fentanyl patch or oxycodone for long-acting pain relief if Percocet not adequate. History Interval history: No new issues overnight. Hospitalist Physical - Constitutional Vitals: Temp Pulse Resp BP Pulse Ox 98.3 F 96 H 18 129/87 99 06/18/20 05:23 06/18/20 05:23 06/18/20 06:39 06/18/20 05:23 06/18/20 05:23 General appearance: Present: no acute distress, well-nourished - EENT Eyes: Present: PERRL, EOM intact ENT: hearing intact, clear oral mucosa, dentition normal - Neck Neck: Present: supple, normal ROM - Respiratory Respiratory effort: normal Respiratory: bilateral: CTA - Cardiovascular Rhythm: regular Heart Sounds: Present: S1 & S2. Absent: gallop, rub - Extremities Extremities: no ischemia, No edema, Full ROM - Abdominal General gastrointestinal: soft, non-tender, non-distended, normal bowel sounds - Integumentary Integumentary: Present: clear, warm, dry - Neurologic Neurologic: CNII-XII intact, moves all extremities Results - Labs CBC & Chem 7: 06/16/20 14:06 06/16/20 14:06 Labs: Laboratory Last Values WBC 13.1 K/mm3 (4.5-11.0) H 06/16/20 14:06 RBC 3.94 M/mm3 (3.65-5.03) 06/16/20 14:06 Hgb 12.0 gm/dl (11.8-15.2) 06/16/20 14:06 Hct 36.9 % (35.5-45.6) 06/16/20 14:06 MCV 94 fl (84-94) 06/16/20 14:06 MCH 31 pg (28-32) 06/16/20 14:06 MCHC 33 % (32-34) 06/16/20 14:06 RDW 13.4 % (13.2-15.2) 06/16/20 14:06 Plt Count 314 K/mm3 (140-440) 06/16/20 14:06 Lymph % (Auto) 13.8 % (13.4-35.0) 06/08/20 08:10 Blair % (Auto) 10.7 % (0.0-7.3) H 06/08/20 08:10 Eos % (Auto) 0.7 % (0.0-4.3) 06/08/20 08:10 Baso % (Auto) 0.4 % (0.0-1.8) 06/08/20 08:10 Lymph # (Auto) 2.6 K/mm3 (1.2-5.4) 06/08/20 08:10 Blair # (Auto) 2.0 K/mm3 (0.0-0.8) H 06/08/20 08:10 Eos # (Auto) 0.1 K/mm3 (0.0-0.4) 06/08/20 08:10 Baso # (Auto) 0.1 K/mm3 (0.0-0.1) 06/08/20 08:10 Add Manual Diff Complete 06/12/20 07:57 Total Counted 100 06/12/20 07:57 Seg Neutrophils % 74.4 % (40.0-70.0) H 06/08/20 08:10 Seg Neuts % (Manual) 79.0 % (40.0-70.0) H 06/12/20 07:57 Band Neutrophils % 1.0 % 06/12/20 07:57 Lymphocytes % (Manual) 10.0 % (13.4-35.0) L 06/12/20 07:57 Monocytes % (Manual) 10.0 % (0.0-7.3) H 06/12/20 07:57 Eosinophils % (Manual) 1.0 % (0.0-4.3) 06/07/20 19:23 Nucleated RBC % Not Reportable 06/12/20 07:57 Seg Neutrophils # 13.9 K/mm3 (1.8-7.7) H 06/08/20 08:10 Seg Neutrophils # Man 12.6 K/mm3 (1.8-7.7) H 06/12/20 07:57 Band Neutrophils # 0.2 K/mm3 06/12/20 07:57 Lymphocytes # (Manual) 1.6 K/mm3 (1.2-5.4) 06/12/20 07:57 Abs React Lymphs (Man) 0.0 K/mm3 06/12/20 07:57 Monocytes # (Manual) 1.6 K/mm3 (0.0-0.8) H 06/12/20 07:57 Eosinophils # (Manual) 0.0 K/mm3 (0.0-0.4) 06/12/20 07:57 Basophils # (Manual) 0.0 K/mm3 (0.0-0.1) 06/12/20 07:57 Metamyelocytes # 0.0 K/mm3 06/12/20 07:57 Myelocytes # 0.0 K/mm3 06/12/20 07:57 Promyelocytes # 0.0 K/mm3 06/12/20 07:57 Blast Cells # 0.0 K/mm3 06/12/20 07:57 WBC Morphology Not Reportable 06/12/20 07:57 Hypersegmented Neuts Not Reportable 06/12/20 07:57 Hyposegmented Neuts Not Reportable 06/12/20 07:57 Hypogranular Neuts Not Reportable 06/12/20 07:57 Smudge Cells Not Reportable 06/12/20 07:57 Toxic Granulation Not Reportable 06/12/20 07:57 Toxic Vacuolation Not Reportable 06/12/20 07:57 Dohle Bodies Not Reportable 06/12/20 07:57 Pelger-Huet Anomaly Not Reportable 06/12/20 07:57 Alice Rods Not Reportable 06/12/20 07:57 Platelet Estimate Consistent w auto 06/12/20 07:57 Clumped Platelets Not Reportable 06/12/20 07:57 Plt Clumps, EDTA Not Reportable 06/12/20 07:57 Large Platelets Not Reportable 06/12/20 07:57 Giant Platelets Not Reportable 06/12/20 07:57 Platelet Satelliting Not Reportable 06/12/20 07:57 Plt Morphology Comment Not Reportable 06/12/20 07:57 RBC Morphology Normal 06/12/20 07:57 Dimorphic RBCs Not Reportable 06/12/20 07:57 Polychromasia Not Reportable 06/12/20 07:57 Hypochromasia Not Reportable 06/12/20 07:57 Poikilocytosis Not Reportable 06/12/20 07:57 Anisocytosis Not Reportable 06/12/20 07:57 Microcytosis Not Reportable 06/12/20 07:57 Macrocytosis Not Reportable 06/12/20 07:57 Spherocytes Not Reportable 06/12/20 07:57 Pappenheimer Bodies Not Reportable 06/12/20 07:57 Sickle Cells Not Reportable 06/12/20 07:57 Target Cells Not Reportable 06/12/20 07:57 Tear Drop Cells Not Reportable 06/12/20 07:57 Ovalocytes Not Reportable 06/12/20 07:57 Helmet Cells Not Reportable 06/12/20 07:57 [place] Bodies Not Reportable 06/12/20 07:57 [place] Rings Not Reportable 06/12/20 07:57 Katja Cells Not Reportable 06/12/20 07:57 Bite Cells Not Reportable 06/12/20 07:57 Crenated Cell Not Reportable 06/12/20 07:57 Elliptocytes Not Reportable 06/12/20 07:57 Acanthocytes (Spur) Not Reportable 06/12/20 07:57 Rouleaux Not Reportable 06/12/20 07:57 Hemoglobin C Crystals Not Reportable 06/12/20 07:57 Schistocytes Not Reportable 06/12/20 07:57 Malaria parasites Not Reportable 06/12/20 07:57 Abhinav Bodies Not Reportable 06/12/20 07:57 Hem Pathologist Commnt No 06/12/20 07:57 PT 12.5 Sec. (12.2-14.9) 06/08/20 08:10 INR 0.94 (0.87-1.13) 06/08/20 08:10 Sodium 139 mmol/L (137-145) 06/16/20 14:06 Potassium 4.2 mmol/L (3.6-5.0) D 06/16/20 14:06 Chloride 104.3 mmol/L (98-107) 06/16/20 14:06 Carbon Dioxide 29 mmol/L (22-30) 06/16/20 14:06 Anion Gap 10 mmol/L 06/16/20 14:06 BUN 21 mg/dL (9-20) H 06/16/20 14:06 Creatinine 0.9 mg/dL (0.8-1.3) 06/16/20 14:06 Estimated GFR > 60 ml/min 06/16/20 14:06 BUN/Creatinine Ratio 23 % 06/16/20 14:06 Glucose 83 mg/dL (75-100) 06/16/20 14:06 Calcium 8.7 mg/dL (8.4-10.2) 06/16/20 14:06 C-Reactive Protein 0.50 mg/dL (0.00-1.30) 06/16/20 Unknown Nasal Screen MRSA (PCR) Positive (Negative) 06/08/20 Unknown Vancomycin Trough 12.8 ug/mL (5.0-20.0) 06/18/20 07:22 Womack/IV: Voiding Method Urinal Active Medications - Current Medications Current Medications: Generic Name Dose Route Start Last Admin Trade Name Freq PRN Reason Stop Dose Admin Acetaminophen 650 mg 06/07/20 22:01 Acetaminophen 325 Mg Tab PO Q4H PRN Pain MILD(1-3)/Fever >100.5/HILL Celecoxib 200 mg 06/08/20 13:00 06/17/20 21:00 Celecoxib 200 Mg Cap PO 200 mg BID LEANDRO Administration Heparin Sodium (Porcine) 5,000 unit 06/14/20 22:00 06/17/20 21:46 Heparin 5,000 Unit/1 Ml Vial SUB-Q Not Given BID LEANDRO Hydroxychloroquine Sulfate 200 mg 06/08/20 13:00 06/17/20 21:00 Hydroxychloroquine 200 Mg Tab PO 200 mg BID LEANDRO Administration Vancomycin HCl 1,250 mg/ 275 mls @ 166.667 mls/hr 06/09/20 06:00 06/17/20 17:15 Sodium Chloride IV 166.667 mls/hr Q12H LEANDRO Administration Magnesium Hydroxide 30 ml 06/07/20 22:01 Magnesium Hydroxide (Mom) Oral Liqd Udc PO Q4H PRN Constipation Morphine Sulfate 3 mg 06/08/20 16:43 06/16/20 20:23 Morphine 2 Mg/1 Ml Inj IV 3 mg Q4H PRN Administration Pain , Severe (7-10) Ondansetron HCl 4 mg 06/07/20 22:01 Ondansetron 4 Mg/2 Ml Inj IV Q8H PRN Nausea And Vomiting Oxycodone/Acetaminophen 1 tab 06/08/20 16:43 06/18/20 06:39 Oxycodone /Acetaminophen 5-325mg Tab PO 1 tab Q6H PRN Administration Pain, Moderate (4-6) Prednisone 10 mg 06/16/20 10:00 06/17/20 09:15 Prednisone 10 Mg Tab PO 10 mg DAILY LEANDRO Administration Sodium Chloride 10 ml 06/08/20 10:00 06/17/20 21:47 Sodium Chloride 0.9% 10 Ml Flush Syringe IV 10 ml BID LEANDRO Administration Sodium Chloride 10 ml 06/07/20 22:01 Sodium Chloride 0.9% 10 Ml Flush Syringe IV PRN PRN LINE FLUSH Nutrition/Malnutrition Assess - Dietary Evaluation Nutrition/Malnutrition Findings: Nutrition Notes Start: 06/08/20 11:47 Freq: Status: Active Protocol: Document 06/12/20 10:58 (Rec: 06/12/20 10:59 IVAN [id number]) Nutrition Notes Need for Assessment generated from: LOS Initial or Follow up Brief Note Subjective/Other Information Screen for LOS. Pt reports eating 100% of meals. Nutrition Intervention Revisit per MD consult or patient Sign Off request:
[2020-06-18] MEDS ORDERED: MORPHINE 4 MG/1 ML INJ IV PRN (10:00)
[2020-06-18] MEDS: HEPARIN 5,000 UNIT/1 ML VIAL SUB-Q SCH ×2 (10:02→21:24)
[2020-06-18] MEDS: predniSONE 10 MG TAB PO SCH (10:02)
[2020-06-18] MEDS: HYDROXYCHLOROQUINE 200 MG TAB PO SCH ×2 (10:02→21:22)
[2020-06-18] MEDS: CELECOXIB 200 MG CAP PO SCH ×2 (10:02→21:21)
[2020-06-18] MEDS: VANCOMYCIN 1,250 MG in SODIUM CHLORIDE 0.9% 250ML 250 ML IV SCH ×3 (10:03→21:22)
--- NOTE | 2020-06-18 13:27 | Progress Note ---
Assessment and Plan Cultures: 06/08/2020 blood culture: no growth 06/11/2020 OR culture R finger: MRSA MRSA PCR positive A/P: 64-year-old male with rheumatoid arthritis with: #Extensive right middle finger cellulitis, flexor tenosynovitis with associated osteomyelitis: No trauma. Xray and MRI concerning for osteomyelitis. s/p I&D by orthopedics on 06/11/2020. CRP 2.9. #Rheumatoid arthritis, immunocompromised host: Has been taking chronic steroids in addition to celecoxib. He has not taken Enbrel yet, recently was prescribed to him. Recs: -Reconsult Ortho, pain not controlled 10 of 10 -Repeating MRI of the finger -continue IV vancomycin, level therapeutic -anticipate to discharge on weekly IV Oritavancin infusion to cover 6 weeks, patient was approved at [facility] infusion, when ready to discharge call [facility] infusion. -Discussed with Dr. Frank, he will kindly see patient next week, if finger pain is not better patient may need to be seen by hand surgery Shantal Freeman MD [facility] ([facility]) Office [phone] Subjective Date of service: 06/18/20 Principal diagnosis: Finger osteomyelitis Interval history: Patient remains with fever pain 10 out of 10, no fever Objective - Exam Narrative Exam: General appearance: Alert in NAD pleasant Eyes: anicteric sclerae, moist conjunctivae; no lid-lag; PERRLA HENT: Normocephalic, Atraumatic; normal external ears, nares open, oropharynx clear Neck: supple, tracheal midline, no JVD Lungs: CTA, with normal respiratory effort and no intercostal retractions CV: RRR no murmur Abdomen: Soft, non-tende Extremities: Right middle finger with surgical dressing Skin: No rash. Psych: no agitated Neuro: alert and oriented x 3. Moving all extermities - Constitutional Vitals: Vital Signs Temp Pulse Resp BP Pulse Ox 98.3 F 96 H 18 129/87 99 06/18/20 05:23 06/18/20 05:23 06/18/20 06:39 06/18/20 05:23 06/18/20 05:23 Temperature -Last 24 Hours Temperature 98.3 F Temperature 98.6 F Temperature 98.1 F - Labs CBC & Chem 7: 06/16/20 14:06 06/16/20 14:06
[2020-06-19 06:29] VITALS: BP 124/85
[2020-06-19] MEDS: oxyCODONE /ACETAMINOPHEN 5-325MG TAB PO PRN ×2 (06:40→12:40)
--- NOTE | 2020-06-19 09:00 | Discharge Summary ---
Providers - Providers Date of Admission: 06/07/20 21:50 Date of discharge: 06/19/20 Attending physician: IBRAHIMA LUU 06/07/20 21:54 Consult to Physician [CONS] Urgent Comment: Consult in the morning Consulting Provider: RON NINO Physician Instructions: Reason For Exam: Osteomyelitis right middle finger 06/07/20 22:01 Consult to Physician [CONS] Routine Comment: Consulting Provider: TUSHAR WYHTE Physician Instructions: Reason For Exam: Osteomyelitis right middle finger 06/18/20 19:05 Consult to Wound/ET Nurse [CONS] Routine Reason For Exam: wound eval Primary care physician: DAVID GALVAN Hospitalization Reason for admission: cellulitis/osteomyelitis Condition: Stable Hospital course: The patient is a 64-year-old male with rheumatoid arthritis for which he takes celecoxib and prednisone twice daily for the last several years was admitted to the hospital with worsening pain and swelling of his right middle finger. This has been going on for a month and has been getting worse. He had been seen in the ED and was given an orthopedic follow-up but unfortunately did not follow-up with orthopedics. X-ray with findings concerning for possible osteomyelitis. The patient was admitted with diagnosis of right middle finger cellulitis, right flexor tenosynovitis, associated osteomyelitis and sepsis. MRI confirmed a diagnosis of osteomyelitis. The pt was seen by ID and Ortho in consultation. The patient was treated with IV antibiotic. The patient underwent surgery and had incision and drainage of the right third finger. Daily clinical course: 06/08/20: Continue empiric antibiotics per ID recommendation, as needed pain management: Wait for orthopedic recommendation and evaluation 06/09: Continue empiric antibiotics, await for orthopedics evaluation, ordered for right hand MRI 06/10; planned for I and D tomorrow, continue empiric antibiotic, follow clinically. Patient might need long-term IV antibiotics, will follow ID recommendation 06/11: Continue IV antibiotics, plan for I&D today. Will follow surgical culture, ID following 06/12: Patient status post I&D, no complaints. No fevers or chills. Tolerating diet. Pain is controlled. 06/13: Patient was complaining of swelling in his right hand. States that the bandage was too tight, loosen the nicolas bandage a bit which gave him some relief. Dressings were not removed. 06/14: Patient doing well, complains of right sided rib pain. Patient did not fall. No fevers or chills. And with less swelling. Anticipate dressing change today. 06/15: Patient without any complaints. No fevers or chills. Pain in right chest controlled 06/16/2020. Await arrangements for antibiotics per ID recommendations, patient will need 6 weeks of IV antibiotics. 06/17/2020. Patient still complains of 10/10 pain. Start Percocet and continue morphine for breakthrough pain 06/18/2020. We will decrease the frequency of the IV morphine and increase Percocet to 2 tabs every 4 hours as needed. Consider fentanyl patch or oxycodone for long-acting pain relief if Percocet not adequate. 06/19/2020. Patient's pain is adequately controlled and therefore will be discharged home and is to follow-up with ID and orthopedics as an outpatient. ID recommends weekly IV Oritavancin infusion to cover 6 weeks, patient was approved at [facility] infusion, when ready to discharge call [facility] infusion. Dedicated discharge time 35 minutes Disposition: DC-01 TO HOME OR SELFCARE Final Discharge Diagnosis (Prints w/discharge instructions): Extensive right middle finger cellulitis, flexor tenosynovitis with associated osteomyelitis, sepsis and RA Core Measure Documentation - Palliative Care Palliative Care/ Comfort Measures: Not Applicable - Core Measures Any of the following diagnoses?: none Exam - Constitutional Vitals: Temp Pulse Resp BP Pulse Ox 98.9 F 101 H 18 124/85 98 06/19/20 06:02 06/19/20 06:02 06/19/20 06:40 06/19/20 06:02 06/19/20 06:02 General appearance: Present: no acute distress, well-nourished - EENT Eyes: Present: PERRL ENT: hearing intact, clear oral mucosa - Neck Neck: Present: supple, normal ROM - Respiratory Respiratory effort: normal Respiratory: bilateral: CTA - Cardiovascular Heart Sounds: Present: S1 & S2. Absent: rub, click - Extremities Extremities: pulses symmetrical, No edema Peripheral Pulses: within normal limits - Abdominal General gastrointestinal: Present: soft, non-tender, non-distended, normal bowel sounds Male genitourinary: Present: normal - Integumentary Integumentary: Present: clear, warm, dry - Musculoskeletal Musculoskeletal: gait normal, strength equal bilaterally - Psychiatric Psychiatric: appropriate mood/affect, intact judgment & insight - Neurologic Neurologic: CNII-XII intact, moves all extremities Plan Activity: advance as tolerated Weight Bearing Status: Weight Bear as Tolerated Diet: regular Additional Instructions: discharge on weekly IV Oritavancin infusion to cover 6 weeks, patient was approved at [facility] infusion, when ready to discharge call [facility] infusion. Follow up with: DAVID GALVAN MD [Primary Care Provider] - 3-5 Days RON NINO MD [Staff Physician] - 7 Days DAT DONNELLY MD [Staff Physician] - 7 Days Prescriptions: Celecoxib [celeBREX] 200 mg PO BID #10 capsule Oxycodone HCl [oxyCODONE] 10 mg PO BID PRN #10 tablet PRN Reason: Pain oxyCODONE /ACETAMINOPHEN [Percocet 5/325 mg] 1 tab PO Q4H PRN #20 tablet PRN Reason: Pain, Moderate (4-6) Hydroxychloroquine [Plaquenil] 200 mg PO BID #10
[2020-06-19] MEDS: predniSONE 10 MG TAB PO SCH (10:29)
[2020-06-19] MEDS: CELECOXIB 200 MG CAP PO SCH (10:29)
[2020-06-19] MEDS: VANCOMYCIN 1,250 MG in SODIUM CHLORIDE 0.9% 250ML 250 ML IV SCH (10:29)
[2020-06-19] MEDS: HYDROXYCHLOROQUINE 200 MG TAB PO SCH (10:29)
[2020-06-19] MEDS: HEPARIN 5,000 UNIT/1 ML VIAL SUB-Q SCH (10:30)
== END 2020-06-19 13:30 | disposition home or self-care (01) | DRG 854 ==
LOC: ED 16:55 → 3A 21:50
PROVIDERS: ADMIT Internal Medicine Geriatric Medicine; ATTEND Hospitalist
PROC: 0L970ZZ Drainage of Right Hand Tendon, Open Approach (ICD-10-PCS; principal; 2020-06-11)
DX: A41.9 Sepsis, unspecified organism (principal); M86.141 Other acute osteomyelitis, right hand; M06.9 Rheumatoid arthritis, unspecified; L03.011 Cellulitis of right finger; M65.841 Other synovitis and tenosynovitis, right hand; M19.90 Unspecified osteoarthritis, unspecified site; X58.XXXD Exposure to other specified factors, subsequent encounter; F17.200 Nicotine dependence, unspecified, uncomplicated; B95.62 Methicillin resistant Staphylococcus aureus infection as the cause of diseases classified elsewhere; S22.41XD Multiple fractures of ribs, right side, subsequent encounter for fracture with routine healing
CPT/HCPCS: 36415; 71260; 80048; 80202; 85007; 85025; 85027; 85610; 86140; 87040; 87075; 87076; 87116; 87186; 87641; 96365; 96375; 96376; 99406; G0378; J0690; J0692; J1170; J1644; J1885; J2250; J2270; J2405; J2704; J3010; J3370; J7030; J7050; J7512; Q9967

== ENCOUNTER 2020-06-29 09:22 | Inpatient (IN) | payer MEDICARE ==
[2020-06-29] MEDS ORDERED: SODIUM CHLORIDE 0.9% 1000 ML 1,000 ML IV ONE ×2 (10:22)
[2020-06-29] MEDS ORDERED: ONDANSETRON 4 MG/2 ML INJ IV ONE ×2 (10:25→14:50)
--- NOTE | 2020-06-29 10:28 | Emergency Department Report ---
HPI - General Chief Complaint: Dizziness Time Seen by Provider: 06/29/20 10:09 - HPI HPI: Room 20 The patient is a 64-year-old male present with a chief complaint of weakness and dizziness. The patient states he is receiving antibiotics for right middle finger infection. Patient states he received an infusion 06/22/2020 and afterwards developed generalized fatigue and lightheadedness. Patient complained of epigastric abdominal pain. Patient states his symptoms peaked approximately 2 to 3 days after infusion and then waned but never completely r esolved. Patient arrived to the infusion center today for more antibiotics when he was noted to be tachycardic. Patient was subsequently sent to the ED for further management. Patient states he has had shortness of breath for the past week but denies cough or fever. ED Past Medical Hx - Past Medical History Hx Arthritis: Yes Additional medical history: G.I bleed, ulcer - Surgical History Additional Surgical History: hx of abd surgery for ulcer - Family History Family history: no significant - Social History Smoking Status: Former Smoker (None times months) Substance Use Type: None (Denies illicit drug use) - Medications Home Medications: Home Medications Medication Instructions Recorded Confirmed Last Taken Type Celecoxib 200 mg PO BID 10/29/17 06/08/20 04/15/18 History predniSONE 10 mg PO BID 10/29/17 06/08/20 04/15/18 History traMADoL [Ultram 50 MG tab] 50 mg PO Q6HR PRN #10 tablet 05/26/20 06/08/20 Unknown Rx Etanercept [Enbrel Sureclick] 50 mg SQ QWEEK 06/08/20 06/08/20 Unknown History Celecoxib [celeBREX] 200 mg PO BID #10 capsule 06/19/20 Unknown Rx Hydroxychloroquine [Plaquenil] 200 mg PO BID #10 06/19/20 Unknown Rx Oxycodone HCl [oxyCODONE] 10 mg PO BID PRN #10 tablet 06/19/20 Unknown Rx oxyCODONE /ACETAMINOPHEN [Percocet 1 tab PO Q4H PRN #20 tablet 06/19/20 Unknown Rx 5/325 mg] ED Review of Systems ROS: Stated complaint: DIZZINESS,FAST HEART RATE Other details as noted in HPI Constitutional: weakness. denies: fever Eyes: denies: eye pain ENT: denies: throat pain Respiratory: shortness of breath. denies: cough Cardiovascular: denies: chest pain Endocrine: no symptoms reported Gastrointestinal: abdominal pain Genitourinary: denies: dysuria Musculoskeletal: denies: back pain Neurological: denies: headache Physical Exam - Physical Exam Vital Signs: Vital Signs 06/29/20 06/29/20 09:35 09:49 Temperature 98.0 F Pulse Rate 141 H 132 H Respiratory 20 21 Rate Blood Pressure 113/68 Blood Pressure 125/83 [Right] O2 Sat by Pulse 94 95 Oximetry Physical Exam: GENERAL: The patient is well-developed well-nourished male lying on stretcher not appearing to be in acute distress. [] HEENT: Normocephalic. Atraumatic. Extraocular motions are intact. Patient has moist mucous membranes. NECK: Supple. Trachea midline CHEST/LUNGS: Clear to auscultation. There is no respiratory distress noted. HEART/CARDIOVASCULAR: Regular. There is tachycardia. There is no gallop rub or murmur. ABDOMEN: Abdomen is soft, with tenderness to palpation in the right upper quadrant, epigastric and left upper quadrant. Greatest tenderness in the epig astric region. Patient has normal bowel sounds. There is no abdominal distention. SKIN: There is no rash. There is no edema. There is no diaphoresis. NEURO: The patient is awake, alert, and oriented. The patient is cooperative. The patient has no focal neurologic deficits. The patient has normal speech MUSCULOSKELETAL: There is no evidence of acute injury. ED Course Vital Signs 06/29/20 06/29/20 09:35 09:49 Temperature 98.0 F Pulse Rate 141 H 132 H Respiratory 20 21 Rate Blood Pressure 113/68 Blood Pressure 125/83 [Right] O2 Sat by Pulse 94 95 Oximetry - Consultations Consultation #1: 06/29/20 15:06 Infectious disease paged ED Medical Decision Making - Lab Data Result diagrams: 06/29/20 10:30 06/29/20 10:30 Laboratory Tests 06/29/20 06/29/20 06/29/20 10:30 10:30 10:30 WBC 11.1 H RBC 3.99 Hgb 12.5 Hct 37.0 MCV 93 MCH 31 MCHC 34 RDW 13.4 Plt Count 359 Lymph % (Auto) 18.1 [place] % (Auto) 15.5 H Eos % (Auto) 4.5 H Baso % (Auto) 0.9 Lymph # (Auto) 2.0 [place] # (Auto) 1.7 H Eos # (Auto) 0.5 H Baso # (Auto) 0.1 Seg Neutrophils % 61.0 Seg Neutrophils # 6.7 PT INR APTT Sodium 130 L Potassium 4.3 Chloride 91.8 L Carbon Dioxide 21 L Anion Gap 22 BUN 16 Creatinine 1.1 Estimated GFR > 60 BUN/Creatinine Ratio 15 Glucose 97 Lactic Acid Calcium 9.6 Total Bilirubin 0.80 AST 20 ALT 13 Alkaline Phosphatase 94 Total Creatine Kinase 87 CK-MB (CK-2) 1.4 CK-MB (CK-2) Rel Index 1.6 Troponin T < 0.010 Total Protein 8.4 H Albumin 3.0 L Albumin/Globulin Ratio 0.6 Lipase 24 Free T4 06/29/20 06/29/20 06/29/20 10:46 10:46 10:46 WBC RBC Hgb Hct MCV MCH MCHC RDW Plt Count Lymph % (Auto) [place] % (Auto) Eos % (Auto) Baso % (Auto) Lymph # (Auto) [place] # (Auto) Eos # (Auto) Baso # (Auto) Seg Neutrophils % Seg Neutrophils # PT 14.9 INR 1.19 H APTT 46.4 H Sodium Potassium Chloride Carbon Dioxide Anion Gap BUN Creatinine Estimated GFR BUN/Creatinine Ratio Glucose Lactic Acid 1.80 Calcium Total Bilirubin AST ALT Alkaline Phosphatase Total Creatine Kinase CK-MB (CK-2) CK-MB (CK-2) Rel Index Troponin T Total Protein Albumin Albumin/Globulin Ratio Lipase Free T4 1.22 - EKG Data -: EKG Interpreted by Me EKG shows normal: sinus rhythm Rate: tachycardia (132 bpm) - EKG Data When compared to previous EKG there are: previous EKG unavailable Interpretation: nonspecific ST-T wave merry (T wave inversions in leads III and aVF) - Radiology Data Radiology results: report reviewed (Chest x-ray, CT abdomen pelvis), image reviewed (Chest x-ray, CT abdomen pelvis) interpreted by me: Chest x-ray-no definite focal infiltrates, no pneumothorax. No foreign body seen [facility] [address] [place] [address] XRay Report Signed Patient: KALIN MEZA MR#: [id number] : 1955 Acct:[id number] Age/Sex: 64 / M ADM Date: 06/29/20 Loc: ED Attending Dr: Ordering Physician: SHARIFA BERNAL MD Date of Service: 06/29/20 Procedure(s): XR chest 1V ap Accession Number(s): [id number] cc: SHARIFA BERNAL MD Fluoro Time In Minutes: CHEST 1 VIEW 06/29/2020 9:38 AM INDICATION / CLINICAL INFORMATION: Shortness of breath. COMPARISON: 06/14/2020 FINDINGS: SUPPORT DEVICES: None. HEART / MEDIASTINUM: No significant abnormality. LUNGS / PLEURA: No significant pulmonary or pleural abnormality. No pneumothorax. ADDITIONAL FINDINGS: Healing left rib fractures. IMPRESSION: 1. No acute cardiopulmonary process. Signer Name: Ron Morel MD Signed: 06/29/2020 10:42 AM Workstation Name: [id number] Transcribed By: RH Dictated By: RON MOREL III Electronically Authenticated By: RON MOREL III Signed Date/Time: 06/29/20 1042 DD/ 1040 TD/TT: [facility] [address] [place] [address] Cat Scan Report Signed Patient: KALIN MEZA MR#: [id number] : 1955 Acct:[id number] Age/Sex: 64 / M ADM Date: 06/29/20 Loc: ED Attending Dr: Ordering Physician: SHARIFA BERNAL MD Date of Service: 06/29/20 Procedure(s): CT abdomen pelvis w con Accession Number(s): [id number] cc: SHARIFA BERNAL MD CT ABDOMEN AND PELVIS WITH CONTRAST INDICATION / CLINICAL INFORMATION: MAIN. TECHNIQUE: Axial CT images were obtained through the abdomen and pelvis after 100 cc O mnipaque [address] scans at this location are performed using CT dose reduction for ALARA by means of automated exposure control. COMPARISON: CT chest 06/15/2020; report from CT abdomen pelvis 04/15/2018 (images unable to be retrieved at the time of examination review) FINDINGS: LOWER CHEST: No significant abnormality. HEPATOBILIARY: No significant abnormality. PANCREAS/SPLEEN/ADRENALS: No significant abnormality. GENITOURINARY: Multiple renal hypodensities measuring up to 4.6 cm at the left interpolar region. Appearance suggests simple cysts. Ureters and bladder demonstrate no significant abnormality. GASTROINTESTINAL/MESENTERY: Mild diverticulosis coli without evidence of acute diverticulitis. No evidence of acute appendicitis. No bowel obstruction or inflammation. No free air or significant free fluid. RETROPERITONEUM: No significant adenopathy. REPRODUCTIVE ORGANS: No significant abnormality. VASCULAR: Severe mixed density atherosclerosis throughout the aorta and iliofemoral arteries. Likely hemodynamically significant stenoses at the proximal femoral arteries. No definite evidence of occlusion. Moderate atherosclerotic calcification is present at the ostia of the abdominal aortic branch vessels. BODY WALL: No significant abnormality. SKELETAL SYSTEM: Mild serpiginous sclerosis at the bilateral femoral head suggests early AVN/osteonecrosis. No evidence of collapse. Degenerative changes are present without acute fracture or aggressive osseous lesion. There is grade 1 anterolisthesis of L4 on L5 and grade 1 retrolisthesis of L5 on S1. There is chronic mild compression deformity at L1. IMPRESSION: 1. No acute abdominopelvic abnormality. 2. Bilateral simple appearing renal cysts. 3. Severe atherosclerosis, as described above. 4. Mild serpiginous sclerosis at the bilateral femoral heads suggests early AVN/osteonecrosis. No evidence of collapse or fracture. 5. Additional findings as above. Signer Name: Ron Morel MD Signed: 06/29/2020 12:42 PM Workstation Name: [id number] Transcribed By: ANALY Dictated By: RON MOREL III Electronically Authe nticated By: RON MOREL III Signed Date/Time: 06/29/20 1242 DD/ 1230 TD/TT: Print Cancel - Differential Diagnosis Sepsis, symptomatic anemia, dehydration, Critical care attestation.: If time is entered above; I have spent that time in minutes in the direct care of this critically ill patient, excluding procedure time. ED Disposition Clinical Impression: Osteomyelitis of finger of right hand Disposition: OP ADMIT IP TO THIS HOSP Is pt being admited?: Yes Does the pt Need Aspirin: No Condition: Fair Referrals: DAVID GALVAN MD [Primary Care Provider] - 3-5 Days Time of Disposition: 15:36 (Hospitalist notified (Dr Villanueva))
--- NOTE | 2020-06-29 10:47 | XRay Report ---
CHEST 1 VIEW 06/29/2020 9:38 AM INDICATION / CLINICAL INFORMATION: Shortness of breath. COMPARISON: 06/14/2020 FINDINGS: SUPPORT DEVICES: None. HEART / MEDIASTINUM: No significant abnormality. LUNGS / PLEURA: No significant pulmonary or pleural abnormality. No pneumothorax. ADDITIONAL FINDINGS: Healing left rib fractures. IMPRESSION: 1. No acute cardiopulmonary process. Signer Name: Myron Morel MD Signed: 06/29/2020 10:42 AM Workstation Name: [id number]
[2020-06-29 10:52] LABS: Basophils # (Auto) 0.1 K/mm3 (0.0-0.1); Basophils % (Auto) 0.9 % (0.0-1.8); Eosinophils # (Auto) 0.5 K/mm3 (0.0-0.4); Eosinophils % (Auto) 4.5 % (0.0-4.3); Hemoglobin 12.5 gm/dl (11.8-15.2); Lymphocytes % (Auto) 18.1 % (13.4-35.0); Mean Corpuscular HGB Conc 34 % (32-34); Mean Corpuscular Volume 93 fl (84-94); Monocytes # (Auto) 1.7 K/mm3 (0.0-0.8); Monocytes % (Auto) 15.5 % (0.0-7.3); Platelet Count 359 K/mm3 (140-440); Red Blood Count 3.99 M/mm3 (3.65-5.03); Red Cell Distribution Width 13.4 % (13.2-15.2)
[2020-06-29 11:23] LABS: Creatine Kinase MB 1.4 ng/mL (0.0-4.0)
[2020-06-29 11:24] LABS: Alanine Aminotransferase 13 units/L (7-56); BUN/Creatinine Ratio 15; Blood Urea Nitrogen 16 mg/dL (9-20); Calcium 9.6 mg/dL (8.4-10.2); Hemolysis Index 12
[2020-06-29] MEDS ORDERED: ACETAMINOPHEN 325 MG TAB PO ONE (11:32)
[2020-06-29 11:48] LABS: INR 1.19 (0.87-1.13)
[2020-06-29 11:50] LABS: Partial Thromboplastin Time 46.4 Sec. (24.2-36.6)
--- NOTE | 2020-06-29 12:47 | Cat Scan Report ---
CT ABDOMEN AND PELVIS WITH CONTRAST INDICATION / CLINICAL INFORMATION: MAIN. TECHNIQUE: Axial CT images were obtained through the abdomen and pelvis after 100 cc Omnipaque [address] scans at this location are performed using CT dose reduction for ALARA by means of automated exposure control. COMPARISON: CT chest 06/15/2020; report from CT abdomen pelvis 04/15/2018 (images unable to be retrieved at the esvin e of examination review) FINDINGS: LOWER CHEST: No significant abnormality. HEPATOBILIARY: No significant abnormality. PANCREAS/SPLEEN/ADRENALS: No significant abnormality. GENITOURINARY: Multiple renal hypodensities measuring up to 4.6 cm at the left interpolar region. Mirela earance suggests simple cysts. Ureters and bladder demonstrate no significant abnormality. GASTROINTESTINAL/MESENTERY: Mild diverticulosis coli without evidence of acute diverticulitis. No janet dence of acute appendicitis. No bowel obstruction or inflammation. No free air or significant free fl uid. RETROPERITONEUM: No significant adenopathy. REPRODUCTIVE ORGANS: No significant abnormality. VASCULAR: Severe mixed density atherosclerosis throughout the aorta and iliofemoral arteries. Likely hemodynamically significant stenoses at the proximal femoral arteries. No definite evidence of occlus ion. Moderate atherosclerotic calcification is present at the ostia of the abdominal aortic branch ve ssels. BODY WALL: No significant abnormality. SKELETAL SYSTEM: Mild serpiginous sclerosis at the bilateral femoral head suggests early AVN/osteonec rosis. No evidence of collapse. Degenerative changes are present without acute fracture or aggressive osseous lesion. There is grade 1 anterolisthesis of L4 on L5 and grade 1 retrolisthesis of L5 on S1. There is chronic mild compression deformity at L1. IMPRESSION: 1. No acute abdominopelvic abnormality. 2. Bilateral simple appearing renal cysts. 3. Severe atherosclerosis, as described above. 4. Mild serpiginous sclerosis at the bilateral femoral heads suggests early AVN/osteonecrosis. No janet dence of collapse or fracture. 5. Additional findings as above. Signer Name: Myron Morel MD Signed: 06/29/2020 12:42 PM Workstation Name: [id number]
[2020-06-29 13:04] LABS: Free T4 (Free Thyroxine) 1.22 ng/dL (0.76-1.46)
[2020-06-29] MEDS ORDERED: HYDROmorphone 1 MG/1 ML INJ IV ONE (14:50)
[2020-06-29] MEDS ORDERED: VANCOMYCIN/NS 1 GM/250 ML 1 GM/250 ML BAG IV ONE (15:10)
[2020-06-29] MEDS ORDERED: CEFEPIME/NS 2 GM/100 ML 2 GM/100 ML BAG IV ONE (15:10)
[2020-06-29 15:44] LABS: Bilirubin,Urine NEG (Negative); Blood,Urine SM (Negative); Color,Urine Yellow (Yellow); Mucus,Urine 2+ /HPF
--- NOTE | 2020-06-29 19:36 | History and Physical Report ---
History of Present Illness Date of examination: 06/29/20 Date of admission: 06/29/20 15:35 Chief complaint: Generalized weakness and hypertension for 1 week History of present illness: 64-year-old male generalized fatigue and lightheadedness. Patient has a right middle finger infection for which he is being treated with IV infusion once weekly. Patient received IV fluids on 06/22/2020 after which he had normal generalized fatigue and lightheadedness and abdominal discomfort which lasted for 2 to 3 days. Patient went to the infusion center today for second round of IV antibiotics and patient was found to be tachycardic and also shortness of breath because of which patient was sent to emergency room for evaluation. In the emergency room patient's heart rate was in the 130s. Also blood pressure was low ranging from 90/57 to-113/68. Patient had incision and drainage of the right middle finger for flexor tendon infection by Dr. Oro on 06/11/2020. Last admission was reviewed. Patient was discharged on oritavancin weekly dose for 6 weeks. Patient has severe side effects with tachycardia in the range of 130s to 150s- and is being admitted for IV fluids and stabilization of the patient. - Past Medical History --Arthritis: Yes --Additional medical history: G.I bleed, ulcer - Surgical History --Additional Surgical History: hx of abd surgery for ulcer - Family History Family history: no significant - Social History Smoking Status: Former Smoker (None times months) Substance Use Type: None (Denies illicit drug use) - Medications Home Medications: Home Medications Medication Instructions Recorded Confirmed Last Taken Type Celecoxib 200 mg PO BID 10/29/17 06/08/20 04/15/18 History predniSONE 10 mg PO BID 10/29/17 06/08/20 04/15/18 History traMADoL [Ultram 50 MG tab] 50 mg PO Q6HR PRN #10 tablet 05/26/20 06/08/20 Unknown Rx Etanercept [Enbrel Sureclick] 50 mg SQ QWEEK 06/08/20 06/08/20 Unknown History Celecoxib [celeBREX] 200 mg PO BID #10 capsule 06/19/20 Unknown Rx Hydroxychloroquine [Plaquenil] 200 mg PO BID #10 06/19/20 Unknown Rx Oxycodone HCl [oxyCODONE] 10 mg PO BID PRN #10 tablet 06/19/20 Unknown Rx oxyCODONE /ACETAMINOPHEN [Percocet 1 tab PO Q4H PRN #20 tablet 06/19/20 Unknown Rx 5/325 mg] Review of Systems ROS: Stated complaint: DIZZINESS,FAST HEART RATE Other details as noted in HPI Constitutional: weakness. denies: fever Eyes: denies: eye pain ENT: denies: throat pain Respiratory: shortness of breath. denies: cough Cardiovascular: denies: chest pain Endocrine: no symptoms reported Gastrointestinal: abdominal pain Genitourinary: denies: dysuria Musculoskeletal: denies: back pain Neurological: denies: headache Medications and Allergies Allergies Allergy/AdvReac Type Severity Reaction Status Date / Time No Known Drug Allergies Allergy Unknown Verified 06/29/20 09:24 Home Medications Medication Instructions Recorded Confirmed Last Taken Type RX: Celecoxib 200 mg PO BID 10/29/17 06/08/20 04/15/18 History RX: predniSONE 10 mg PO BID 10/29/17 06/08/20 04/15/18 History RX: traMADoL [Ultram 50 MG tab] 50 mg PO Q6HR PRN #10 tablet 05/26/20 06/08/20 U nknown Rx RX: Etanercept [Enbrel Sureclick] 50 mg SQ QWEEK 06/08/20 06/08/20 Unknown History Oxycodone HCl [oxyCODONE] 10 mg PO BID PRN #10 tablet 06/19/20 Unknown Rx RX: Celecoxib [celeBREX] 200 mg PO BID #10 capsule 06/19/20 Unknown Rx RX: Hydroxychloroquine [Plaquenil] 200 mg PO BID #10 06/19/20 Unknown Rx RX: oxyCODONE /ACETAMINOPHEN 1 tab PO Q4H PRN #20 tablet 06/19/20 Unknown Rx [Percocet 5/325 mg] Exam - Constitutional Vitals: Temp Pulse Resp BP Pulse Ox 98.0 F 143 H 12 151/88 96 06/29/20 09:35 06/29/20 17:31 06/29/20 17:31 06/29/20 17:31 06/29/20 17:31 General appearance: Present: mild distress, well-nourished - EENT Eyes: Present: PERRL ENT: hearing intact, clear oral mucosa - Neck Neck: Present: supple, normal ROM - Respiratory Respiratory effort: normal Respiratory: bilateral: CTA - Cardiovascular Heart rate: 130 Rhythm: regular Heart Sounds: Present: S1 & S2. Absent: rub, click - Extremities Extremities: no ischemia, pulses intact, pulses symmetrical, No edema, abnormal (Right middle finger infection) Peripheral Pulses: within normal limits - Abdominal General gastrointestinal: Present: soft, non-tender, non-distended, normal bowel sounds Male genitourinary: Present: normal - Integumentary Integumentary: Present: clear, warm, dry - Musculoskeletal Musculoskeletal: gait normal, strength equal bilaterally - Psychiatric Psychiatric: appropriate mood/affect, intact judgment & insight - Neurologic Neurologic: CNII-XII intact, moves all extremities HEART Score - HEART Score Troponin: Troponin T < 0.010 ng/mL (0.00-0.029) 06/29/20 10:30 Results - Labs CBC & Chem 7: 06/29/20 10:30 06/29/20 10:30 Labs: Laboratory Last Values WBC 11.1 K/mm3 (4.5-11.0) H 06/29/20 10:30 RBC 3.99 M/mm3 (3.65-5.03) 06/29/20 10:30 Hgb 12.5 gm/dl (11.8-15.2) 06/29/20 10:30 Hct 37.0 % (35.5-45.6) 06/29/20 10:30 MCV 93 fl (84-94) 06/29/20 10:30 MCH 31 pg (28-32) 06/29/20 10:30 MCHC 34 % (32-34) 06/29/20 10:30 RDW 13.4 % (13.2-15.2) 06/29/20 10:30 Plt Count 359 K/mm3 (140-440) 06/29/20 10:30 Lymph % (Auto) 18.1 % (13.4-35.0) 06/29/20 10:30 [place] % (Auto) 15.5 % (0.0-7.3) H 06/29/20 10:30 Eos % (Auto) 4.5 % (0.0-4.3) H 06/29/20 10:30 Baso % (Auto) 0.9 % (0.0-1.8) 06/29/20 10:30 Lymph # (Auto) 2.0 K/mm3 (1.2-5.4) 06/29/20 10:30 [place] # (Auto) 1.7 K/mm3 (0.0-0.8) H 06/29/20 10:30 Eos # (Auto) 0.5 K/mm3 (0.0-0.4) H 06/29/20 10:30 Baso # (Auto) 0.1 K/mm3 (0.0-0.1) 06/29/20 10:30 Seg Neutrophils % 61.0 % (40.0-70.0) 06/29/20 10:30 Seg Neutrophils # 6.7 K/mm3 (1.8-7.7) 06/29/20 10:30 PT 14.9 Sec. (12.2-14.9) 06/29/20 10:46 INR 1.19 (0.87-1.13) H 06/29/20 10:46 APTT 46.4 Sec. (24.2-36.6) H 06/29/20 10:46 Sodium 130 mmol/L (137-145) L 06/29/20 10:30 Potassium 4.3 mmol/L (3.6-5.0) 06/29/20 10:30 Chloride 91.8 mmol/L (98-107) L 06/29/20 10:30 Carbon Dioxide 21 mmol/L (22-30) L 06/29/20 10:30 Anion Gap 22 mmol/L 06/29/20 10:30 BUN 16 mg/dL (9-20) 06/29/20 10:30 Creatinine 1.1 mg/dL (0.8-1.3) 06/29/20 10:30 Estimated GFR > 60 ml/min 06/29/20 10:30 BUN/Creatinine Ratio 15 % 06/29/20 10:30 Glucose 97 mg/dL (75-100) 06/29/20 10:30 Lactic Acid 1.80 mmol/L (0.7-2.0) 06/29/20 10:46 Calcium 9.6 mg/dL (8.4-10.2) 06/29/20 10:30 Total Bilirubin 0.80 mg/dL (0.1-1.2) 06/29/20 10:30 AST 20 units/L (5-40) 06/29/20 10:30 ALT 13 units/L (7-56) 06/29/20 10:30 Alkaline Phosphatase 94 units/L (35-129) 06/29/20 10:30 Total Creatine Kinase 87 units/L (55-170) 06/29/20 10:30 CK-MB (CK-2) 1.4 ng/mL (0.0-4.0) 06/29/20 10:30 CK-MB (CK-2) Rel Index 1.6 (0-4) 06/29/20 10:30 Troponin T < 0.010 ng/mL (0.00-0.029) 06/29/20 10:30 Total Protein 8.4 g/dL (6.3-8.2) H 06/29/20 10:30 Albumin 3.0 g/dL (3.9-5) L 06/29/20 10:30 Albumin/Globulin Ratio 0.6 % 06/29/20 10:30 Lipase 24 units/L (13-60) 06/29/20 10:30 TSH 0.648 mlU/mL (0.270-4.200) 06/29/20 10:46 Free T4 1.22 ng/dL (0.76-1.46) 06/29/20 10:46 Urine Color Yellow (Yellow) 06/29/20 13:24 Urine Turbidity Clear (Clear) 06/29/20 13:24 Urine pH 5.0 (5.0-7.0) 06/29/20 13:24 Ur Specific [place] 1.053 (1.003-1.030) H 06/29/20 13:24 Urine Protein 30 mg/dl mg/dL (Negative) 06/29/20 13:24 Urine Glucose (UA) Neg mg/dL (Negative) 06/29/20 13:24 Urine Ketones 20 mg/dL (Negative) 06/29/20 13:24 Urine Blood Sm (Negative) 06/29/20 13:24 Urine Nitrite Neg (Negative) 06/29/20 13:24 Urine Bilirubin Neg (Negative) 06/29/20 13:24 Urine Urobilinogen 4.0 mg/dL (<2.0) 06/29/20 13:24 Ur Leukocyte Esterase Neg (Negative) 06/29/20 13:24 Urine WBC (Auto) 1.0 /HPF (0.0-6.0) 06/29/20 13:24 Urine RBC (Auto) 8.0 /HPF (0.0-6.0) 06/29/20 13:24 U Epithel Cells (Auto) 2.0 /HPF (0-13.0) 06/29/20 13:24 Urine Mucus 2+ /HPF 06/29/20 13:24 Microbiology: Microbiology 06/29/20 10:46 Peripheral/Venous Blood Culture - Preliminary Culture in Progress 06/29/20 10:46 Peripheral/Venous Blood Culture - Preliminary Culture in Progress - Imaging and Cardiology EKG: report reviewed Chest x-ray: report reviewed CT scan - chest: report reviewed Imaging and Cardiology: Chest x-ray No acute cardiopulmonary findings CT of the abdomen No acute findings EKG sinus tachycardia heart rate of 130s Assessment and Plan Advance Directives: Yes (Full code) VTE prophylaxis?: Chemical Plan of care discussed with patient/family: Yes - Patient Problems (1) SIRS (systemic inflammatory response syndrome) Current Visit: Yes Status: Acute Plan to address problem: Patient is slightly hypotensive and very tachycardic with slight leukocytosis IV fluids and IV antibiotics for now ID consult requested Patient started on Unasyn and IV vancomycin (2) Cellulitis of right middle finger Current Visit: Yes Status: Acute Plan to address problem: Consult by Dr. Oro orthopedic surgery Wound care and dressing Continue IV antibiotics (3) Rheumatoid arthritis Current Visit: Yes Status: Chronic Qualifiers: Laterality: unspecified laterality Plan to address problem: On Enbrel (4) Hyponatremia Current Visit: Yes Status: Acute Plan to address problem: On IV normal saline (5) DVT prophylaxis Current Visit: Yes Status: Acute Plan to address problem: On heparin and GI prophylaxis
[2020-06-29] MEDS ORDERED: traMADol 50 MG TAB PO PRN (19:37)
[2020-06-29] MEDS: oxyCODONE /ACETAMINOPHEN 5-325MG TAB PO PRN (20:46)
[2020-06-29] MEDS ORDERED: ONDANSETRON 4 MG/2 ML INJ IV PRN (22:08)
[2020-06-29] MEDS ORDERED: METOCLOPRAMIDE 10 MG/2 ML INJ IV PRN (22:08)
[2020-06-29] MEDS ORDERED: ACETAMINOPHEN 325 MG TAB PO PRN (22:08)
[2020-06-29] MEDS ORDERED: SODIUM CHLORIDE 0.9% 1000 ML 1,000 ML IV SCH (22:15)
[2020-06-29] MEDS: FAMOTIDINE 20 MG/2 ML INJ IV SCH (23:19)
[2020-06-29] MEDS: HYDROXYCHLOROQUINE 200 MG TAB PO SCH (23:19)
[2020-06-29] MEDS: CELECOXIB 200 MG CAP PO SCH (23:19)
[2020-06-29] MEDS: HEPARIN 5,000 UNIT/1 ML VIAL SUB-Q SCH (23:20)
[2020-06-29] MEDS: CEFEPIME/NS 2 GM/100 ML 2 GM/100 ML BAG IV SCH (23:20)
[2020-06-30] MEDS: CEFEPIME/NS 2 GM/100 ML 2 GM/100 ML BAG IV SCH ×3 (07:00→22:10)
[2020-06-30] MEDS: HYDROmorphone 1 MG/1 ML INJ IV PRN ×3 (08:10→21:04)
[2020-06-30] MEDS: predniSONE 10 MG TAB PO SCH ×3 (08:30→21:06)
[2020-06-30] MEDS ORDERED: VANCOMYCIN PHARMACY TO DOSE IV SCH (09:00)
[2020-06-30] MEDS: HEPARIN 5,000 UNIT/1 ML VIAL SUB-Q SCH ×2 (09:53→21:03)
[2020-06-30] MEDS: FAMOTIDINE 20 MG/2 ML INJ IV SCH ×2 (09:57→21:06)
[2020-06-30] MEDS: HYDROXYCHLOROQUINE 200 MG TAB PO SCH ×2 (09:57→21:06)
[2020-06-30] MEDS: CELECOXIB 200 MG CAP PO SCH ×2 (09:57→21:04)
[2020-06-30] MEDS: VANCOMYCIN 1,250 MG in SODIUM CHLORIDE 0.9% 250ML 250 ML IV SCH ×2 (09:57→21:03)
[2020-06-30] MEDS ORDERED: HEPARIN 5,000 UNIT/1 ML VIAL SUB-Q SCH (10:00)
--- NOTE | 2020-06-30 10:38 | Electrocardiograph Report ---
[facility] Test Date: 2020-06-29 Test Time: 09:27:26 Pat Name: KALIN MEZA Department: Room: A380 1 Gender: M Publicity Expert: BIANCA : 1955 Requested By: SHARIFA BERNAL Order Number: [id number] Reading MD: Mukesh Tamez Measurements Intervals [place] Rate: 132 P: 73 [place]: 128 QRS: 87 QRSD: 91 T: -26 QT: 314 QTc: 465 Interpretive Statements Sinus tachycardia Probable left atrial enlargement Rightward axis deviation Compared to ECG 05/26/2020 16:17:34 No significant change Electronically Signed On 06-30-2020 10:37:30 EDT by Mukesh Tamez
[2020-06-30] MEDS: oxyCODONE /ACETAMINOPHEN 5-325MG TAB PO PRN ×2 (13:06→22:30)
--- NOTE | 2020-06-30 15:43 | Consultation ---
History of Present Illness - Reason for Consult Consult date: 06/30/20 sepsis Requesting physician: FRANCES NOONAN - History of Present Illness The patient is a 64-year-old male with rheumatoid arthritis with recent hospitalization for right middle finger cellulitis, flexor tenosynovitis and associated osteomyelitis. This developed in the absence of trauma, x-ray and MRI were concerning for osteomyelitis, he underwent an I&D by orthopedics with culture growth of MRSA. Patient received IV antibiotics while in the hospital and then was discharged on weekly IV oritavancin therapy. He has continued to complain of pain and lack of appropriate wound healing on the finger. He was never able to make a wound care clinic appointment since his last hospital discharge. He got his first infusion of oritavancin last week without any issue. He came to the infusion center yesterday and was noted to be hypotensive, tachycardic and not feeling well, hence he was sent to the emergency room. Patient received IV fluids, has been afebrile. Has been feeling better. Labs showed mild leukocytosis. Review of Systems: General: no fevers,chills or rigors HEENT: no new visual disturbance Respiratory: No cough, sputum, hemoptysis or shortness of breath Cardiovascular: No chest pain, syncope Gastrointestinal: No nausea, vomiting or diarrhea Genitourinary: No dysuria or hematuria Musculoskeletal: No new or worsening neck pain or back pain Neurologic: No headaches, seizures Hematologic: No easy bruising or bleeding Endocrine: No night sweats or acute weight loss Skin: negative for rash, jaundice Psychiatric: No suicidal or homicidal ideation Medications and Allergies Allergies Allergy/AdvReac Type Severity Reaction Status Date / Time No Known Drug Allergies Allergy Unknown Verified 06/29/20 09:24 Home Medications Medication Instructions Recorded Confirmed Last Taken Type Celecoxib 200 mg PO BID 10/29/17 06/08/20 04/15/18 History predniSONE 10 mg PO BID 10/29/17 06/08/20 04/15/18 History traMADoL [Ultram 50 MG tab] 50 mg PO Q6HR PRN #10 tablet 05/26/20 06/08/20 Unknown Rx Etanercept [Enbrel Sureclick] 50 mg SQ QWEEK 06/08/20 06/08/20 Unknown History Celecoxib [celeBREX] 200 mg PO BID #10 capsule 06/19/20 Unknown Rx Hydroxychloroquine [Plaquenil] 200 mg PO BID #10 06/19/20 Unknown Rx Oxycodone HCl [oxyCODONE] 10 mg PO BID PRN #10 tablet 06/19/20 Unknown Rx oxyCODONE /ACETAMINOPHEN [Percocet 1 tab PO Q4H PRN #20 tablet 06/19/20 Unknown Rx 5/325 mg] Active Meds: Active Medications Acetaminophen (Acetaminophen 325 Mg Tab) 650 mg PO Q4H PRN PRN Reason: Pain MILD(1-3)/Fever >100.5/HILL Celecoxib (Celecoxib 200 Mg Cap) 200 mg PO BID [facility] Last Admin: 06/30/20 09:57 Dose: 200 mg Documented by: Famotidine (Famotidine 20 Mg/2 Ml Inj) 20 mg IV BID [facility] Last Admin: 06/30/20 09:57 Dose: 20 mg Documented by: Heparin Sodium (Porcine) (Heparin 5,000 Unit/1 Ml Vial) 5,000 unit SUB-Q Q12HR [facility] Last Admin: 06/30/20 09:53 Dose: 5,000 unit Documented by: Hydromorphone HCl (Hydromorphone 1 Mg/1 Ml Inj) 0.5 mg IV Q3H PRN PRN Reason: Pain , Severe (7-10) Last Admin: 06/30/20 08:10 Dose: 0.5 mg Documented by: Hydroxychloroquine Sulfate (Hydroxychloroquine 200 Mg Tab) 200 mg PO BID [facility] Last Admin: 06/30/20 09:57 Dose: 200 mg Documented by: Cefepime HCl (Cefepime/Ns 2 Gm/100 Ml) 2 gm in 100 mls @ 200 mls/hr IV Q8H [facility]; Protocol Last Admin: 06/30/20 07:00 Dose: Not Given Documented by: Vancomycin HCl 1,250 mg/ (Sodium Chloride) 275 mls @ 166.667 mls/hr IV Q12HR [facility] Last Admin: 06/30/20 09:57 Dose: 166.667 mls/hr Documented by: Metoclopramide HCl (Metoclopramide 10 Mg/2 Ml Inj) 10 mg IV Q6H PRN PRN Reason: Nausea And Vomiting Ondansetron HCl (Ondansetron 4 Mg/2 Ml Inj) 4 mg IV Q3H PRN PRN Reason: Nausea And Vomiting Oxycodone/Acetaminophen (Oxycodone /Acetaminophen 5-325mg Tab) 1 tab PO Q4H PRN PRN Reason: Pain, Moderate (4-6) Last Admin: 06/30/20 13:06 Dose: 1 tab Documented by: Prednisone (Prednisone 10 Mg Tab) 10 mg PO BID [facility] Last Admin: 06/30/20 09:57 Dose: 10 mg Documented by: Sodium Chloride (Sodium Chloride 0.9% 10 Ml Flush Syringe) 10 ml IV BID [facility] Last Admin: 06/30/20 09:57 Dose: 10 ml Documented by: Sodium Chloride (Sodium Chloride 0.9% 10 Ml Flush Syringe) 10 ml IV PRN PRN PRN Reason: LINE FLUSH Tramadol HCl (Tramadol 50 Mg Tab) 50 mg PO Q6HR PRN PRN Reason: Pain , Severe (7-10) Physical Examination - Physical Exam Narrative exam: Physical Exam: Constitutional: Alert, cooperative. No acute distress Head, Ears, Nose: Normocephalic, atraumatic. External ears, nose normal Eyes: Conjunctivae/corneas clear. No icterus. No ptosis. Neck: Supple, no meningeal signs Cardiovascular: S1, S2 normal. Respiratory: Good air entry, clear to auscultation bilaterally GI: Soft, non-tender; bowel sounds normal. No peritoneal signs Musculoskeletal: No pedal edema, no cyanosis. Right middle finger with areas of purulence, eschar, dressing present Skin: No rash or abscess Hem/Lymphatic: No palpable cervical or supraclavicular nodes. No lymphangitis Psych: Mood ok. Affect normal Neurological: Awake, alert, oriented. No gross abnormality - Constitutional Vitals: Vital Signs Temp Pulse Resp BP Pulse Ox 97.9 F 114 H 20 102/67 99 06/30/20 13:08 06/30/20 13:08 06/30/20 13:08 06/30/20 13:08 06/30/20 13:08 Temperature -Last 24 Hours Temperature 97.9 F Temperature 97.7 F Temperature 99.1 F Temperature 98.4 F Results - Labs CBC & Chem 7: 06/29/20 10:30 06/29/20 10:30 Labs: Abnormal lab results 06/29/20 Range/Units 13:24 Ur Specific [place] 1.053 H (1.003-1.030) - Imaging and Cardiology Chest x-ray: report reviewed, image reviewed (no pneumonia) Assessment and Plan Cultures: 06/29/2020 blood culture: No growth A/P: 64-year-old male with rheumatoid arthritis with recent hospitalization for right middle finger cellulitis, flexor tenosynovitis and associated osteomyelitis. This developed in the absence of trauma, x-ray and MRI were concerning for osteomyelitis, he underwent an I&D by orthopedics with culture growth of MRSA. Patient received IV antibiotics while in the hospital and then was discharged on weekly IV oritavancin therapy, now back with: #Sepsis: Etiology probably right middle finger infection. Rule out bacteremia. CXR with no pneumonia. CT abdomen unremarkable. #Extensive right middle finger cellulitis, flexor tenosynovitis with associated osteomyelitis: s/p I&D by orthopedics on 06/11/2020. Culture grew MRSA, has been receiving outpatient IV antibiotics without much improvement. #Rheumatoid arthritis, immunocompromised host: Has been taking chronic steroids in addition to celecoxib. He has not taken Enbrel yet, recently was prescribed to him. Recs: -Continue IV cefepime and vancomycin for now -Follow-up orthopedic evaluation -Patient also requesting wound care evaluation, he was unable to follow-up with wound care after discharge. Order placed Dustin Frank MD, FACP [facility] ([facility] O: [phone] F: [phone]
--- NOTE | 2020-06-30 16:49 | Progress Note ---
Assessment and Plan (1) SIRS (systemic inflammatory response syndrome) Current Visit: Yes Status: Acute Plan to address problem: Patient was slightly hypotensive and very tachycardic with slight leukocytosis on admission cont IV fluids and IV antibiotics for now ID consult requested Patient started on Unasyn and IV vancomycin (2) Cellulitis of right middle finger Current Visit: Yes Status: Acute Plan to address problem: Consult by Dr. Oro orthopedic surgery Wound care and dressing Continue IV antibiotics (3) Rheumatoid arthritis Current Visit: Yes Status: Chronic Qualifiers: Laterality: unspecified laterality Plan to address problem: On Enbrel (4) Hyponatremia Current Visit: Yes Status: Acute Plan to address problem: On IV normal saline ----Moderate PCM, POA (5) DVT prophylaxis Current Visit: Yes Status: Acute Plan to address problem: On heparin and GI prophylaxis Daily clinical course: 06/30/20: Continue empiric antibiotics, follow culture. ID following, will follow orthopedic recommendation. Subjective Date of service: 06/30/20 Interval history: patient seen and examined. Medical records and medication list reviewed. No acute event overnight noted by the RN. Patient denies any chest pain or difficulty breathing. Patient is tolerating diet. patient c/o right hand pain due to chronic cellulitis and osteomyelitis Discussed plan of care at bedside with patient. Objective - Exam Narrative Exam: Constitutional: Alert, cooperative. No acute distress Head, Ears, Nose: Normocephalic, atraumatic. External ears, nose normal Eyes: Conjunctivae/corneas clear. No icterus. No ptosis. Neck: Supple, no meningeal signs Cardiovascular: S1, S2 normal. Respiratory: Good air entry, clear to auscultation bilaterally GI: Soft, non-tender; bowel sounds normal. No peritoneal signs Musculoskeletal: No pedal edema, no cyanosis. Right middle finger with areas of purulence, eschar, dressing present Skin: No rash or abscess Hem/Lymphatic: No palpable cervical or supraclavicular nodes. No lymphangitis Psych: Mood ok. Affect normal Neurological: Awake, alert, oriented. No gross abnormality - Constitutional Vitals: Vital Signs - 12hr 06/30/20 13:08 Temperature 97.9 F Pulse Rate 114 H Respiratory 20 Rate Blood Pressure 102/67 O2 Sat by Pulse 99 Oximetry - Labs CBC & Chem 7: 06/29/20 10:30 06/30/20 14:08 HEART Score - HEART Score Troponin: Troponin T < 0.010 ng/mL (0.00-0.029) 06/29/20 10:30
[2020-06-30 16:57] LABS: Alanine Aminotransferase 11 units/L (7-56); Albumin 2.6 g/dL (3.9-5); BUN/Creatinine Ratio 13; Blood Urea Nitrogen 10 mg/dL (9-20); Hemolysis Index 70
--- NOTE | 2020-06-30 19:01 | Consultation ---
History of Present Illness - HPI Consult reason: joint pain History of present illness: 64 y/o male with right 3rd finger flexor tendon sheath abscess, s/p I&D 2wks ago... readmitted for weakness, tachycardia, and low blood pressure... Medications and Allergies Allergies Allergy/AdvReac Type Severity Reaction Status Date / Time No Known Drug Allergies Allergy Unknown Verified 06/29/20 09:24 Home Medications Medication Instructions Recorded Confirmed Last Taken Type Celecoxib 200 mg PO BID 10/29/17 06/08/20 04/15/18 History predniSONE 10 mg PO BID 10/29/17 06/08/20 04/15/18 History traMADoL [Ultram 50 MG tab] 50 mg PO Q6HR PRN #10 tablet 05/26/20 06/08/20 Unknown Rx Etanercept [Enbrel Sureclick] 50 mg SQ QWEEK 06/08/20 06/08/20 Unknown History Celecoxib [celeBREX] 200 mg PO BID #10 capsule 06/19/20 Unknown Rx Hydroxychloroquine [Plaquenil] 200 mg PO BID #10 06/19/20 Unknown Rx Oxycodone HCl [oxyCODONE] 10 mg PO BID PRN #10 tablet 06/19/20 Unknown Rx oxyCODONE /ACETAMINOPHEN [Percocet 1 tab PO Q4H PRN #20 tablet 06/19/20 Unknown Rx 5/325 mg] Active Meds: Active Medications Acetaminophen (Acetaminophen 325 Mg Tab) 650 mg PO Q4H PRN PRN Reason: Pain MILD(1-3)/Fever >100.5/HILL Celecoxib (Celecoxib 200 Mg Cap) 200 mg PO BID [facility] Last Admin: 06/30/20 09:57 Dose: 200 mg Documented by: Famotidine (Famotidine 20 Mg/2 Ml Inj) 20 mg IV BID [facility] Last Admin: 06/30/20 09:57 Dose: 20 mg Documented by: Heparin Sodium (Porcine) (Heparin 5,000 Unit/1 Ml Vial) 5,000 unit SUB-Q Q12HR [facility] Last Admin: 06/30/20 09:53 Dose: 5,000 unit Documented by: Hydromorphone HCl (Hydromorphone 1 Mg/1 Ml Inj) 0.5 mg IV Q3H PRN PRN Reason: Pain , Severe (7-10) Last Admin: 06/30/20 08:10 Dose: 0.5 mg Documented by: Hydroxychloroquine Sulfate (Hydroxychloroquine 200 Mg Tab) 200 mg PO BID [facility] Last Admin: 06/30/20 09:57 Dose: 200 mg Documented by: Cefepime HCl (Cefepime/Ns 2 Gm/100 Ml) 2 gm in 100 mls @ 200 mls/hr IV Q8H [facility]; Protocol Last Admin: 06/30/20 15:54 Dose: 200 mls/hr Documented by: Vancomycin HCl 1,250 mg/ (Sodium Chloride) 275 mls @ 166.667 mls/hr IV Q12HR [facility] Last Admin: 06/30/20 09:57 Dose: 166.667 mls/hr Documented by: Metoclopramide HCl (Metoclopramide 10 Mg/2 Ml Inj) 10 mg IV Q6H PRN PRN Reason: Nausea And Vomiting Ondansetron HCl (Ondansetron 4 Mg/2 Ml Inj) 4 mg IV Q3H PRN PRN Reason: Nausea And Vomiting Oxycodone/Acetaminophen (Oxycodone /Acetaminophen 5-325mg Tab) 1 tab PO Q4H PRN PRN Reason: Pain, Moderate (4-6) Last Admin: 06/30/20 13:06 Dose: 1 tab Documented by: Prednisone (Prednisone 10 Mg Tab) 10 mg PO BID [facility] Last Admin: 06/30/20 09:57 Dose: 10 mg Documented by: Sodium Chloride (Sodium Chloride 0.9% 10 Ml Flush Syringe) 10 ml IV BID [facility] Last Admin: 06/30/20 09:57 Dose: 10 ml Documented by: Sodium Chloride (Sodium Chloride 0.9% 10 Ml Flush Syringe) 10 ml IV PRN PRN PRN Reason: LINE FLUSH Tramadol HCl (Tramadol 50 Mg Tab) 50 mg PO Q6HR PRN PRN Reason: Pain , Severe (7-10) Physical Examination - Physical exam Narrative exam: right hand - moderate swelling, +exudates at distal phalanx, ? viability at distal phalanx, DIP mobile to stress testing Assessment and Plan infected right 3rd finger xrays left hand wound care consult
--- NOTE | 2020-06-30 20:16 | XRay Report ---
Right hand 3 views INDICATION: Third finger infection FINDINGS: There is bony destructive change within the distal phalanx of the long finger. Irregularity of the PIP joint. Diffuse soft tissue swelling is seen. Degenerative change within the MCP joints of the thumb and index finger. IMPRESSION: Bony destructive change suggestive the distal phalanx of the long finger with soft tissue irregularit y and DIP joint irregularity. Findings suggest osteomyelitis. Signer Name: Chuck Samaniego MD Signed: 06/30/2020 8:11 PM Workstation Name: [id number]
[2020-07-01 04:29] VITALS: BP 105/63
[2020-07-01] MEDS: oxyCODONE /ACETAMINOPHEN 5-325MG TAB PO PRN ×2 (05:12→09:41)
[2020-07-01] MEDS: CEFEPIME/NS 2 GM/100 ML 2 GM/100 ML BAG IV SCH (09:22)
[2020-07-01] MEDS: FAMOTIDINE 20 MG/2 ML INJ IV SCH (09:31)
[2020-07-01] MEDS: HEPARIN 5,000 UNIT/1 ML VIAL SUB-Q SCH (09:31)
[2020-07-01] MEDS: predniSONE 10 MG TAB PO SCH (09:31)
[2020-07-01] MEDS: CELECOXIB 200 MG CAP PO SCH (09:31)
[2020-07-01] MEDS: HYDROXYCHLOROQUINE 200 MG TAB PO SCH (09:31)
[2020-07-01] MEDS: VANCOMYCIN 1,250 MG in SODIUM CHLORIDE 0.9% 250ML 250 ML IV SCH (09:32)
[2020-07-01] MEDS ORDERED: FAMOTIDINE 20 MG TAB PO SCH (10:00)
--- NOTE | 2020-07-01 13:39 | Progress Note ---
Assessment and Plan Cultures: 06/29/2020 blood culture: No growth A/P: 64-year-old male with rheumatoid arthritis with recent hospitalization for right middle finger cellulitis, flexor tenosynovitis and associated osteomyelitis. This developed in the absence of trauma, x-ray and MRI were concerning for osteomyelitis, he underwent an I&D by orthopedics with culture growth of MRSA. Patient received IV antibiotics while in the hospital and then was discharged on weekly IV oritavancin therapy, now back with: #Sepsis: Etiology probably right middle finger infection. Rule out bacteremia. CXR with no pneumonia. CT abdomen unremarkable. #Extensive right middle finger cellulitis, flexor tenosynovitis with associated osteomyelitis: s/p I&D by orthopedics on 06/11/2020. Culture grew MRSA, has been receiving outpatient IV antibiotics without improvement. #Rheumatoid arthritis, immunocompromised host: Has been taking chronic steroids in addition to celecoxib. He has not taken Enbrel yet, recently was prescribed to him. Recs: -Continue IV vancomycin with PK consult -Cefepime discontinued -Follow-up orthopedic evaluation -Patient also requesting wound care evaluation, he was unable to follow-up with wound care after discharge -when discharged, patient will return to infusion center to resume his weekly oritavancin, has 5 doses left Dustin Frank MD, FACP [facility] O: [phone] F: [phone] Subjective Date of service: 07/01/20 Interval history: No fever. No new complaints apart from pain in the finger. Objective - Exam Narrative Exam: Physical Exam: Constitutional: Alert, cooperative. No acute distress Head, Ears, Nose: Normocephalic, atraumatic. External ears, nose normal Eyes: Conjunctivae/corneas clear. No icterus. No ptosis. Neck: Supple, no meningeal signs Cardiovascular: S1, S2 normal. Respiratory: Good air entry, clear to auscultation bilaterally GI: Soft, non-tender; bowel sounds normal. No peritoneal signs Musculoskeletal: No pedal edema, no cyanosis. Right middle finger with areas of purulence, eschar, dressing present Skin: No rash or abscess Hem/Lymphatic: No palpable cervical or supraclavicular nodes. No lymphangitis Psych: Mood ok. Affect normal Neurological: Awake, alert, oriented. No gross abnormality - Constitutional Vitals: Vital Signs Temp Pulse Resp BP Pulse Ox 98.6 F 108 H 18 105/63 95 07/01/20 04:28 07/01/20 04:28 07/01/20 04:28 07/01/20 04:28 07/01/20 04:28 Temperature -Last 24 Hours Temperature 98.6 F Temperature 99.0 F Temperature 97.9 F - Labs CBC & Chem 7: 06/29/20 10:30 06/30/20 14:08 Labs: Abnormal lab results 06/30/20 Range/Units 14:08 Sodium 132 L (137-145) mmol/L Carbon Dioxide 14 L D (22-30) mmol/L Albumin 2.6 L (3.9-5) g/dL
--- NOTE | 2020-07-01 14:15 | Discharge Summary ---
Providers - Providers Date of Admission: 06/29/20 15:35 Date of discharge: 07/01/20 Attending physician: VERONIQUE PRINCE 06/29/20 15:10 Consult to Physician [CONS] Stat Comment: Consulting Provider: TUSHAR WHYTE Physician Instructions: Reason For Exam: Osteomyelitis 06/30/20 07:34 Consult to Physician [CONS] Routine Comment: Consulting Provider: RON NINO Physician Instructions: Reason For Exam: Right middle finger cellulitis and flexor tendon 06/30/20 09:35 Physical Therapy Evaluation and Treat [CONS] Routine Comment: Reason For Exam: Debility 06/30/20 15:35 Consult to Wound/ET Nurse [CONS] Routine Reason For Exam: wound eval - R middle finger Primary care physician: DAVID GALVAN Hospitalization Condition: Fair Pertinent studies: Chest x-ray Abdomen/pelvis CT hand x-ray Hospital course: 64-year-old male with rheumatoid arthritis with recent hospitalization for right middle finger cellulitis, flexor tenosynovitis and associated osteomyelitis underwent an I&D by orthopedics with culture growth of MRSA was discharged on weekly IV oritavancin therapy, now back with weakness, tachycardia, and low blood pressure. Patient was admitted to the hospital, started on IV antibiotics, will gentle IV fluid hydration. ID and orthopedics were consulted. Orthopedic surgeon recommended no further surgical intervention and to continue regular wound care. ID recommended to continue outpt IV oritavancin therapy as scheduled. Patient received wound care schedule and then discharged home patient follow-up. Patient encouraged to be compliant with outpatient wound care followup. Disposition: [id number] HOME UNDER [facility] Final Discharge Diagnosis (Prints w/discharge instructions): --SIRS (systemic inflammatory response syndrome). --Cellulitis and osteomyelitis of right middle finger. --Rheumatoid arthritis. --Hyponatremia. --Moderate PCM, POA Time spent for discharge: 34 minutes Core Measure Documentation - Palliative Care Palliative Care/ Comfort Measures: Not Applicable - Core Measures Any of the following diagnoses?: none Exam - Physical Exam Narrative exam: Constitutional: Alert, cooperative. No acute distress Head, Ears, Nose: Normocephalic, atraumatic. External ears, nose normal Eyes: Conjunctivae/corneas clear. No icterus. No ptosis. Neck: Supple, no meningeal signs Cardiovascular: S1, S2 normal. Respiratory: Good air entry, clear to auscultation bilaterally GI: Soft, non-tender; bowel sounds normal. No peritoneal signs Musculoskeletal: No pedal edema, no cyanosis. Right middle finger with areas of purulence, eschar, dressing present Skin: No rash or abscess Hem/Lymphatic: No palpable cervical or supraclavicular nodes. No lymphangitis Psych: Mood ok. Affect normal Neurological: Awake, alert, oriented. No gross abnormality - Constitutional Vitals: Temp Pulse Resp BP Pulse Ox 98.6 F 108 H 18 105/63 95 07/01/20 04:28 07/01/20 04:28 07/01/20 04:28 07/01/20 04:28 07/01/20 04:28 Plan Activity: advance as tolerated Weight Bearing Status: Weight Bear as Tolerated Diet: low fat, low salt Wound: per your surgeon's advice Additional Instructions: Return to infusion center to resume his weekly oritavancin, has 5 doses left Follow up with: DAVID GALVAN MD [Primary Care Provider] - 3-5 Days Prescriptions: oxyCODONE /ACETAMINOPHEN [Percocet 5/325 mg] 1 tab PO Q4H PRN #20 tablet PRN Reason: Pain, Moderate (4-6)
== END 2020-07-01 16:30 | disposition home health service (06) | DRG 872 ==
LOC: ED 09:22 → 3A 15:35
PROVIDERS: ADMIT Internal Medicine; ATTEND Internal Medicine
DX: A41.9 Sepsis, unspecified organism (principal); E87.1 Hypo-osmolality and hyponatremia; M86.8X4 Other osteomyelitis, hand; E44.0 Moderate protein-calorie malnutrition; L03.011 Cellulitis of right finger; M65.841 Other synovitis and tenosynovitis, right hand; M06.9 Rheumatoid arthritis, unspecified; Z79.899 Other long term (current) drug therapy; Z68.22 Body mass index [BMI] 22.0-22.9, adult
CPT/HCPCS: 36415; 71045; 74177; 80053; 81001; 82140; 82550; 82553; 83690; 84439; 84443; 84484; 85025; 85610; 85730; 87040; 93005; 96365; 96367; 96375; G0378; J0692; J1170; J1644; J2405; J3370; J7030; J7050; J7512; Q9967